=== PATIENT | male | born 1955 | race Caucasian/White ===

== ENCOUNTER 2021-04-02 12:33 | Outpatient (REF) | payer OTHER, MEDICARE, SELFPAY ==
[2021-04-02 14:31] LABS: Amylase 47 U/L (28-100); Lipase 20 U/L (8-78)
== END 2021-04-02 12:34 | disposition home or self-care (01) ==
LOC: HO.WFDLDS 12:33
PROVIDERS: Visit Provider Hospitalist
DX: R10.13 Epigastric pain (principal)
CPT/HCPCS: 36415; 82150; 83690

== ENCOUNTER 2021-04-18 07:09 | Outpatient (REF) | payer OTHER, SELFPAY ==
[2021-04-18 11:32] LABS: Hematocrit 42.1 % (42.0-52.0); Hemoglobin 13.3 g/dl (14.0-18.0); Mean Corpuscular HGB Conc 31.6 g/dl (31.0-36.0); Mean Corpuscular Hemoglobin 25.7 pg (27.0-33.0); Mean Corpuscular Volume 81.3 fL (80.0-98.0); Mean Platelet Volume 11.9 fL (9.4-12.4); Platelet Count 153 X10*3/uL (160-400); Red Blood Count 5.18 X10*6/uL (4.60-5.80); Red Cell Distribution Width 15.1 % (11.0-16.0); White Blood Count 6.4 X10*3/uL (4.8-10.8)
[2021-04-18 11:47] LABS: Alanine Aminotransferase 129 U/L (0-40); Albumin Level 3.8 g/dL (3.5-5.0); Alkaline Phosphatase 204 U/L (39-117); Anion Gap 11 (12-20); Aspartate Amino Transferase 51 U/L (5-37); Bilirubin Total 0.7 mg/dL (0.0-1.0); Blood Urea Nitrogen 17 mg/dL (9-16); Calcium 9.3 mg/dL (8.4-10.2); Carbon Dioxide 26 mmol/L (22-29); Chloride 105 mmol/L (96-108); Cholesterol 205 mg/dL; Estimated Glomerular Filt Rate > 60; Glucose Fasting 104 mg/dL (60-99); HDL Cholesterol 38 mg/dL; LDL Cholesterol Calculated 144 mg/dl; Potassium 4.1 mmol/L (3.3-5.1); Sodium 138 mmol/L (135-145); Total Protein 7.3 g/dL (6.5-8.0); Triglycerides 116 mg/dL
[2021-04-18 12:04] LABS: TSH reflex Free T4 2.11 uIU/mL (0.32-4.0)
[2021-04-18 12:13] LABS: Appearance Urine CLEAR; Color Urine YELLOW; Glucose Urine UA NEG (NEG); Leukocyte Esterase Urine NEG (NEG); Nitrite Urine NEG (NEG); Specific Gravity - Urine 1.015 (1.005-1.025); Urine Blood TRACE (NEG); Urine Ketones NEG (NEG); Urine Protein TRACE MG/DL (NEG-TRACE)
[2021-04-18 12:41] LABS: RBC Urine 0-2 /HPF (0); WBC Urine 0 /HPF (0-4)
== END 2021-04-18 07:10 | disposition home or self-care (01) ==
LOC: HO.WFDLDS 07:09
PROVIDERS: Visit Provider Hospitalist
DX: Z00.01 Encounter for general adult medical examination with abnormal findings (principal); E78.5 Hyperlipidemia, unspecified
CPT/HCPCS: 36415; 80053; 80061; 81001; 81003; 84443; 85027

== ENCOUNTER 2021-06-06 11:36 | Outpatient (REF) | payer OTHER, SELFPAY ==
[2021-06-06 13:44] LABS: Estimated Average Glucose 114 mg/dL; Hemoglobin A1c % 5.6 %
[2021-06-06 14:07] LABS: C Reactive Protein 1.46 mg/dL (< or = 0.50)
[2021-06-06 14:31] LABS: Ferritin 120 ng/mL (20-250)
[2021-06-07 07:56] LABS: HBc Num1 0.12 S/CO (0.00-0.79); HBsAGNum1 0.21 S/CO (0.00-0.99); HIV AB/AG Nonreactive (Nonreactive); HIV Num 1 0.05 S/CO (0.00-0.99); Hepatitis A Antibody IgM 0.22 Index (0-0.79); Hepatitis B Core Antibody Nonreactive (Nonreactive); Hepatitis B Surface Antigen Negative (Negative); ~Hepatitis A Antibody IgM Nonreactive (Nonreactive)
[2021-06-07 08:10] LABS: HBS Num1 0.06 mIU/mL (0-7.99); ~Hepatitis B Surface Antibody NONREACTIVE (Nonreactive); ~Hepatitis C Antibody Nonreactive (Nonreactive)
[2021-06-08 13:51] LABS: Ceruloplasmin 30 mg/dL (18-36)
[2021-06-10 13:02] LABS: Alpha Fetoprotein 5.7 ng/mL (<6.1)
[2021-06-10 16:51] LABS: Mitochondrial Antibodies NEGATIVE (NEGATIVE)
[2021-06-12 06:41] LABS: Alk.Phos Iso. Macrohepatic 27 % (<=0); Alk.Phos Isoenzymes Bone 19 % (28-66); Alk.Phos Isoenzymes Intest 0 % (1-24); Alk.Phos Isoenzymes Liver 54 % (25-69); Alk.Phos Isoenzymes Placental 0 % (<=0); Alk.Phos Isoenzymes Total 288 U/L (35-144)
[2021-06-13 12:56] LABS: Smooth Muscle Antibody <20 U (<20)
== END 2021-06-06 11:37 | disposition home or self-care (01) ==
LOC: HO.LAB 11:36
PROVIDERS: PCP Hospitalist; Referring Provider Hospitalist; Visit Provider Nurse Practitioner Family
DX: K21.9 Gastro-esophageal reflux disease without esophagitis (principal); D64.9 Anemia, unspecified; R74.8 Abnormal levels of other serum enzymes; R79.89 Other specified abnormal findings of blood chemistry; E11.9 Type 2 diabetes mellitus without complications; K58.9 Irritable bowel syndrome, unspecified
CPT/HCPCS: 36415; 82105; 82390; 82728; 83036; 84080; 86015; 86140; 86255; 86256; 86704; 86706; 86709; 86803; 87340; 87389; 99202

== ENCOUNTER 2021-07-17 10:04 | Outpatient (REF) | payer OTHER, SELFPAY ==
--- NOTE | ~2021-07-17 | US_ITS ---
EXAMINATION: US COMPLETE ABDOMEN WITH LIVER ELASTOGRAPHY CLINICAL INFORMATION: Abnormal liver enzymes COMPARISON: None. TECHNIQUE: Real-time imaging of the abdominal viscera. Noninvasive ultrasound liver fibrosis assessment is performed using Zain ElastPQ point quantification shear wave elastography (2D-SWE) with a C5-2 MHz transducer. Multiple elastography samples are obtained. FINDINGS: PANCREAS: The visualized portion of the pancreas head and body are normal, portion of the pancreatic body and tail, not visualized are obscured by bowel gas. ABDOMINAL AORTA: There are atheromatous plaques. INFERIOR VENA CAVA: Visualized portions are normal. LIVER: Normal. The liver demonstrates normal size, contour and echogenicity. No focal lesion or intrahepatic biliary duct dilatation. The right lobe measures 16.7 cm in length. The left lobe measures 10.1 cm in length. Portal flow is hepatopedal Shear wave liver elastography median stiffness is 1.99 m/s (reference: normal median stiffness is 1.3 m/s or less). IQR/median stiffness to assess sampling precision is 0.11 (reference: good quality data set is IQR/median stiffness of 0.15 or less). GALLBLADDER: There is echogenic structure adherent to the gallbladder wall likely a small polyp. 0.4 cm. Normal. The gallbladder is physiologically distended without evidence of stones, sludge, , wall thickening or pericholecystic fluid. COMMON BILE DUCT: Mildly dilated in caliber measuring 0.7 cm in diameter. RIGHT KIDNEY: Normal. No hydronephrosis. No renal calculi or focal parenchymal lesions. The kidney measures 14.4 cm in maximum dimension. LEFT KIDNEY: Normal. No hydronephrosis. No renal calculi or focal parenchymal lesions. The kidney measures 10.4 cm in maximum dimension. SPLEEN: Normal. The spleen measures 10.9 cm in maximum dimension. FREE FLUID: None. US/US abdomen comp w elastography IMPRESSION: 1. Liver is normal in size. 2. Liver elastography: Measurements are suggestive of compensated advanced chronic liver disease but need further test for confirmation. 3. Simple cyst right kidney 0.7 cm middle pole. 4. Echogenic structure likely a polyp within the gallbladder. Would recommend correlation with FOLLOW-UP ULTRASOUND IN 6 MONTHS. REFERENCE: Society of Radiologists in Ultrasound Liver Stiffness Thresholds (2020): LIVER STIFFNESS THRESHOLDS: *Liver Stiffness equal or less than 1.3 m/s: High probability of being normal. *Liver Stiffness less than 1.7 m/s: In the absence of other known clinical signs, rules out compensated advanced chronic liver disease. *Liver Stiffness 1.7-2.1 m/s: Suggestive of compensated advanced chronic liver disease but need further test for confirmation. *Liver Stiffness over 2.1 m/s: Rules in compensated advanced chronic liver disease. *Liver Stiffness over 2.4 m/s: Suggestive of clinically significant portal hypertension. QUALITY OF DATA SET: *IQR/Median value equal or less than 0.15 implies a quality data set. *IQR/Median value over 0.15 implies a poor quality data set. SIGNIFICANT CHANGE FROM PRIOR EXAM: Significant change if liver stiffness measurement is 10% or greater from prior exam. OTHER CONSIDERATIONS: The stage of liver fibrosis may be overestimated in the setting of acute hepatitis, liver inflammation, elevated liver function tests, hepatic vascular congestion, obstructive cholestasis, non-fasting state, and infiltrative diseases such as amyloidosis and lymphoma. In some patients with NAFLD, the liver stiffness thresholds for compensated advanced chronic liver disease may be lower. In causes other than viral hepatitis and NAFLD, liver stiffness thresholds are not well established.
== END 2021-07-17 10:05 | disposition home or self-care (01) ==
LOC: HO.US 10:04
PROVIDERS: Visit Provider Nurse Practitioner Family
DX: R79.89 Other specified abnormal findings of blood chemistry (principal)
CPT/HCPCS: 76705; 76981

== ENCOUNTER → 2021-07-31 09:59 | Outpatient (BNVA) | payer OTHER, SELFPAY | PROVIDERS: PCP Hospitalist; Visit Provider Nurse Practitioner Family | DX: Z12.11 Encounter for screening for malignant neoplasm of colon (principal); R74.8 Abnormal levels of other serum enzymes | CPT/HCPCS: 99212 ==

== ENCOUNTER 2021-12-02 10:31 | Day surgery (SDC) | payer OTHER, SELFPAY ==
[2021-11-27 13:11] VITALS: BMI 32.3
--- NOTE | 2021-11-29 11:52 | P.CONAN_ITS ---
Documented by User: Irish Francois NP 11/29/21 11:54 HPI - Anesthesia Eval Consult details Narrative: 66yo M for Upper Endoscopy and Colonoscopy Cardiac cleared Xarelto for PAF PMFSH Active Problems Active Problems: All Active Problems (Updated 11/28/21 @ 11:27 by Lian Phelan RN) Epigastric pain (Acute) Abnormal physical evaluation (Acute) Afib (Acute) Chronic GERD (Acute) Anemia (Acute) Elevated liver enzymes (Acute) Hyperlipidemia (Acute) HTN (hypertension) (Acute) Past Medical History Medical History (Updated 11/28/21 @ 11:27 by Lian Phelan RN) Anemia COVID-19 vaccine series completed GERD (gastroesophageal reflux disease) History of COVID-19 HTN (hypertension) Hyperlipidemia PAF (paroxysmal atrial fibrillation) Family History Family History Mother HTN (hypertension) Father Stroke Surgical History Surgical History Hx of appendectomy Social History Social History Household Members: Spouse Housing: House Alcohol intake: never Patient Tobacco Use Status: Former Tobacco user e-Cigarette/Vaping Use: Never Used Second Hand Smoke Exposure: No Use of substances other than those prescribed or required for medical reasons: No Advance Directives: No Advance Directives Information Provided: Yes service: No Current occupational status: employed Cognitive needs: No Hearing needs: No Vision needs: No Meds Allergies Allergy/AdvReac Type Severity Reaction Status Date / Time No Known Allergies Allergy Verified 07/31/21 10:03 Home Medications Medication Instructions Recorded Confirmed Last Taken Type losartan 100 mg tablet 100 mg PO DAILY 06/06/21 11/27/21 Unknown History ketoconazole 2 % topical cream 1 appl topical DAILY 07/11/21 11/27/21 Unknown History Exam Exam Date and Time: November 29, 2021 1152 Height,Weight and Vital Signs: Height 5 ft 10 in Weight 102.058 kg Pertinent Lab Results Pertinent Lab Results: Laboratory Tests 04/18/21 04/18/21 07:15 07:15 WBC 6.4 Hgb 13.3 L Hct 42.1 Plt Count 153 L Sodium 138 Potassium 4.1 Chloride 105 Carbon Dioxide 26 BUN 17 H Creatinine 0.95 Assessment and Plan Assessment Anesthesia Assessment: Chart Reviewed Documented by User: Katie Maier MD 12/02/21 12:21 [facility] Past Medical History Medical History (Updated 11/28/21 @ 11:27 by Lian Phelan RN) Anemia COVID-19 vaccine series completed GERD (gastroesophageal reflux disease) History of COVID-19 HTN (hypertension) Hyperlipidemia PAF (paroxysmal atrial fibrillation) Family History Family History Mother HTN (hypertension) Father Stroke Family history of problems with anesthesia: No Surgical History Surgical History Hx of appendectomy History of Problems with Anesthesia: No Social History Social History Household Members: Spouse Housing: House Alcohol intake: never Patient Tobacco Use Status: Former Tobacco user e-Cigarette/Vaping Use: Never Used Second Hand Smoke Exposure: No Use of substances other than those prescribed or required for medical reasons: No Advance Directives: No Advance Directives Information Provided: Yes service: No Current occupational status: employed Cognitive needs: No Hearing needs: No Vision needs: No Meds Allergies Allergy/AdvReac Type Severity Reaction Status Date / Time No Known Allergies Allergy Verified 07/31/21 10:03 Home Medications Medication Instructions Recorded Confirmed Last Taken Type losartan 100 mg tablet 100 mg PO DAILY 06/06/21 11/27/21 Unknown History ketoconazole 2 % topical cream 1 appl topical DAILY 07/11/21 11/27/21 Unknown History Exam Airway Mallampati Class: II (Missing a couple of teeth, denies anything loose) TM Dist: >3cm Neck ROM: Full Heart: irreg Lungs: cta Assessment and Plan Assessment Anesthesia Assessment: Anesthesia Plan Discussed Final Anesthetic Review Family History of Problems with Anesthesia: No History of Problems with Anesthesia: No NPO: Yes ASA Class: III Final Preanesthetic Review: No Changes in Pt Med Stat, Meds/Allgs Chart Reviewed and Consent Obtained/Reviewed Patient Risk: Intermediate Procedure Risk: Intermediate Anesthetic Plan Anesthetic Plan: MAC: Disposition: Standard PACU
[2021-12-02 11:32] VITALS: BP 145/76; PULSE 95; RESP 16; TEMP 36.1; O2SAT 96; BMI 33.0
[2021-12-02] MEDS: Lactated Ringers 1,000 ML 100 ML IVCONT (11:47)
--- NOTE | 2021-12-02 13:07 | MHC.SHP ---
Pre-Procedural Eval Section A Date of Service: 12/02/21 The patient is an INPATIENT: No Section B Chief Complaint: screening, anemia Relevant Family History (Specify if Yes): No Relevant Social History: Tobacco Use (Former smoker) Present Medications: see Short Stay Collaborative assessment Medical History: Significant History (HTN (hypertension) Hyperlipidemia, atrial fibrillation on anticoagulation) History of Previous Operations: Relevant previous surgery/procedure and date(s) (Status post appendectomy) Allergies: Allergies Allergy/AdvReac Type Severity Reaction Status Date / Time No Known Allergies Allergy Verified 07/31/21 10:03 Review of Systems Sugical H&P ROS: Negative: Constitution, Cardiovascular, Respiratory and Gastrointestinal Exam Surgical H&P Exam: Normal: Lungs, Normal: Extremities and Normal: Abdomen and Significant Findings: Heart (Irregularly irregular) Plan Diagnosis/Plan: Unchanged I have reviewed the history and physical and performed a pertinent physical examination on my patient. No changes have occurred unless specified.
--- NOTE | 2021-12-02 13:22 | PM.OP ---
Brief Operative Note Date of Service: 12/02/21 Pre-op diagnosis: Colon cancer screening, anemia Post-op diagnosis: other (GERD, gastriis, colon polyps, diverticulosis, hemorrhoids) Procedure: FLEXIBLE TRANSORAL UPPER GASTROINTESTINAL ENDOSCOPY WITH BIOPSIES AND COLONOSCOPY TILL CECUM WITH BIOPSIES UPPER ENDOSCOPY Consent: Indications for the procedure and potential complications of bleeding, perforation, reaction to medications and missed diagnosis were discussed with the patient and informed consent was obtained. Instrument: Olympus GIF H 190 mid size upper endoscope Monitoring: Vital signs and clinical assessment, continuous EKG monitoring, Pulse oximetry, Carbon Dioxide monitoring and blood pressure monitoring were done throughout the procedure. Procedure: The patient was placed in the left lateral decubitis position and pre-procedure medications were administered and a bite block was placed. The endoscope was inserted into the mouth and advanced under direct vision to the third part of duodenum. A careful inspection was made as the upper endoscope was withdrawn including a retroflexed examination of the proximal stomach; Findings and interventions are described below. Findings: Larynx: Normal Esophagus: GE junction at 40 cms. Irregular Z line - biopsied to check for Leon's. Stomach: Mild gastric erythema. Biopsies were obtained. Grade 2 flap valve on retroflexed examination of the cardia. Duodenum: Normal bulb and descending duodenum. Biopsies were obtained from 3rd part of the duodenum to check for celiac sprue. Intervention: Biopsies as noted above COLONOSCOPY PROCEDURE NOTE Consent: Indications for the procedure and potential complications of bleeding, perforation, reaction to medications and missed diagnosis were discussed with the patient and informed consent was obtained. Instrument: Olympus PCF H 190 L variable stiffness pediatric colonoscope Monitoring: Vital signs and clinical assessment, intermittent blood pressure monitoring, continuous EKG monitoring, Pulse oximetry and Carbon Dioxide monitoring were done throughout the procedure. Colon withdrawl time was 24 minutes. Procedure: The patient was placed in the left lateral decubitis position and pre-procedure medications were administered. After a digital rectal examination of the ano-rectum, the video colonoscope was inserted into the rectum and advanced through the colon to the cecum. The colonoscope was slowly withdrawn in a retrograde panoramic fashion and the colon mucosa was carefully examined including a retroflexed view of the rectum. Findings and interventions are described below. Procedure Difficulty: Colon was long and tortuous and there was spasm and some loop formation - no maneuvers were required Findings: Terminal Ileum: Not evaluated Cecum: Normal Ascending Colon: A 4-5 mm sessile polyp in the proximal ascending colon removed with a cold biopsy. Scattered diverticulosis throughout the colon Transverse Colon: Scattered diverticulosis throughout the colon Descending Colon: Scattered diverticulosis throughout the colon Sigmoid Colon: A 7 to 8 mm sessile polyp removed with a cold bx. Moderate diverticulosis Rectum: Normal Ano-rectum: Moderate internal hemorrhoids Colon preparation: Good after some irrigation Impression and Post Procedure Diagnosis: Endoscopy Findings: ESOPHAGUS: GE junction at 40 cms. Irregular Z line - biopsied to check for Leon's. STOMACH: Gastritis - biopsied to check for H Pylori DUODENUM: Normal - biopsied to check for celiac sprue Colonoscopy Findings: Two small polyps removed Moderate diverticulosis seen in the entire colon Moderate hemorrhoids on retroflexed exam. No source found for anemia - advised further evaluation with iron studies and stool for occult blood. Capsule Endoscopy if stool occult blood is positive Plan: Await pathology results Patient has an appointment on 12/17/21 in the GI Clinic with Soraya Khan FNP-BC. Repeat Colonoscopy interval based on path results - in 5 years if polyps are adenomatous and 10 years if polyps are hyperplastic. (Needs adult colonoscope for future colonoscopies) Above findings were reviewed with the patient and colon polyps and diverticulosis handouts were given in the discharge area Surgeon: Stacey Horowitz MD Anesthesia: MAC Was an Christian Education Director used for this Procedure?: No Christian Education Director: Marlene Reilly Estimated blood loss (mL): 0 Pathology: other (A. small bowel bxs, R/O celiac B. gastric antrum bxs, R/O H. pylori C. G-E junction bxs, R/O Leon's D. ascending colon polyp E. sigmoid polyp) Condition: stable Disposition: PACU
--- NOTE | 2021-12-02 13:23 | P.OP_ITS ---
Operative Note Operative Note Date of Service: 12/02/21 Narrative: Pre-op diagnosis: Colon cancer screening, anemia Post-op diagnosis:?other (GERD, gastriis, colon polyps, diverticulosis, hemorrhoids) Procedure: FLEXIBLE TRANSORAL UPPER GASTROINTESTINAL ENDOSCOPY WITH BIOPSIES AND COLONOSCOPY TILL CECUM WITH BIOPSIES UPPER ENDOSCOPY Consent:?Indications for the procedure and potential complications of bleeding, perforation, reaction to medications and missed diagnosis were discussed with the patient and informed consent was obtained. Instrument:?Olympus GIF H 190 mid size upper endoscope Monitoring: Vital signs and clinical assessment, continuous EKG monitoring, Pulse oximetry, Carbon Dioxide monitoring and blood pressure monitoring were done throughout the procedure. Procedure:?The patient was placed in the left lateral decubitis position and pre-procedure medications were administered and a bite block was placed. The endoscope was inserted into the mouth and advanced under direct vision to the third part of duodenum. A careful inspection was made as the upper endoscope was withdrawn including a retroflexed examination of the proximal stomach; Findings and interventions are described below. Findings: Larynx:? Normal Esophagus:?GE junction at 40 cms.? Irregular Z line - biopsied to check for Leon's. Stomach:?Mild gastric erythema. Biopsies were obtained. Grade 2 flap valve on retroflexed examination of the cardia. Duodenum:?Normal bulb and descending duodenum.? Biopsies were obtained from 3rd part of the duodenum to check for celiac sprue. Intervention:?Biopsies as noted above COLONOSCOPY PROCEDURE NOTE Consent:?Indications for the procedure and potential complications of bleeding, perforation, reaction to medications and missed diagnosis were discussed with the patient and informed consent was obtained. Instrument:?Olympus PCF H 190 L variable stiffness pediatric colonoscope Monitoring:?Vital signs and clinical assessment, intermittent blood pressure monitoring, continuous EKG monitoring, Pulse oximetry and Carbon Dioxide monitoring were done throughout the procedure. Colon withdrawl time was 24 minutes. Procedure:?The patient was placed in the left lateral decubitis position and pre-procedure medications were administered. After a digital rectal examination of the ano-rectum, the video colonoscope was inserted into the rectum and advanced through the colon to the cecum. The colonoscope was slowly withdrawn in a retrograde panoramic fashion and the colon mucosa was carefully examined including a retroflexed view of the rectum. Findings and interventions are described below. Procedure Difficulty:??Colon was long and tortuous and there was spasm and some loop formation - no maneuvers were required Findings: Terminal Ileum: Not evaluated Cecum:? Normal Ascending Colon:??A 4-5 mm sessile polyp in the proximal ascending colon removed with a cold biopsy.? Scattered diverticulosis throughout the colon Transverse Colon:??Scattered diverticulosis throughout the colon Descending Colon:? Scattered diverticulosis throughout the colon Sigmoid Colon:??A 7 to 8 mm sessile polyp removed with a cold bx. Moderate diverticulosis Rectum:??Normal Ano-rectum:??Moderate internal hemorrhoids Colon preparation:? Good after some irrigation Impression and Post Procedure Diagnosis: Endoscopy Findings: ESOPHAGUS: GE junction at 40 cms.? Irregular Z line - biopsied to check for Leon's. STOMACH: Gastritis - biopsied to check for H Pylori DUODENUM: Normal - biopsied to check for celiac sprue Colonoscopy Findings: Two small polyps removed Moderate diverticulosis seen in the entire colon Moderate hemorrhoids on retroflexed exam. No source found for anemia - advised further evaluation with iron studies and stool for occult blood. Capsule Endoscopy if stool occult blood is positive Plan: Await pathology results Patient has an appointment on 12/17/21 in the GI Clinic with ? Soraya Khan FNP-TON. Repeat Colonoscopy interval based on path results - in 5 years if polyps are adenomatous and 10 years if polyps are hyperplastic. (Needs adult colonoscope for future colonoscopies) Above findings were reviewed with the patient and colon polyps and diverticulosis handouts were given in the discharge area Surgeon: Stacey Horowitz MD Anesthesia:?MAC Was an Finished Cigar Maker used for this Procedure?:?No Finished Cigar Maker:?Marlene Reilly Estimated blood loss (mL):?0 Pathology:?other (A. small bowel bxs, R/O celiac? B. gastric antrum bxs, R/O H. pylori? C. G-E junction bxs, R/O Leon's? D. ascending colon polyp? E. sigmoid polyp) Condition:?stable Disposition:?PACU
[2021-12-02 14:17] VITALS: BP 105/53; PULSE 102; RESP 18; TEMP 36.6; O2SAT 96
[2021-12-02 14:32] VITALS: BP 100/68; PULSE 87; RESP 18; O2SAT 96
[2021-12-02 14:47] VITALS: BP 100/68; PULSE 89; RESP 18; O2SAT 98
== END 2021-12-02 15:30 | disposition home or self-care (01) ==
PROVIDERS: PCP Hospitalist; Visit Provider Internal Medicine Gastroenterology
PROC: (CPT 45380; principal; 2021-12-02 12:10)
DX: Z12.11 Encounter for screening for malignant neoplasm of colon (principal); D64.9 Anemia, unspecified; K63.5 Polyp of colon; K57.30 Diverticulosis of large intestine without perforation or abscess without bleeding; K64.8 Other hemorrhoids; R74.8 Abnormal levels of other serum enzymes; K58.9 Irritable bowel syndrome, unspecified; K21.9 Gastro-esophageal reflux disease without esophagitis; K29.50 Unspecified chronic gastritis without bleeding; I10 Essential (primary) hypertension; E78.5 Hyperlipidemia, unspecified; I48.0 Paroxysmal atrial fibrillation; Z79.01 Long term (current) use of anticoagulants; Z79.899 Other long term (current) drug therapy; Z87.891 Personal history of nicotine dependence; Z86.16 Personal history of COVID-19
CPT/HCPCS: 45380; 43239; 88305; 88342

== ENCOUNTER 2021-12-17 09:41 | Outpatient (REF) | payer OTHER, SELFPAY ==
[2021-12-17 10:34] LABS: Hematocrit 41.7 % (42.0-52.0); Hemoglobin 13.4 g/dl (14.0-18.0); Mean Corpuscular HGB Conc 32.1 g/dl (31.0-36.0); Mean Corpuscular Hemoglobin 26.3 pg (27.0-33.0); Mean Corpuscular Volume 81.8 fL (80.0-98.0); Mean Platelet Volume 9.5 fL (9.4-12.4); Platelet Count 363 X10*3/uL (160-400); Red Cell Distribution Width 14.1 % (11.0-16.0)
[2021-12-17 11:18] LABS: Alanine Aminotransferase 237 U/L (0-40); Alkaline Phosphatase 523 U/L (39-117); Aspartate Amino Transferase 120 U/L (5-37); Bilirubin Direct 0.4 mg/dL (0.0-0.5); Bilirubin Total 0.7 mg/dL (0.0-1.0); Blood Urea Nitrogen 17 mg/dL (9-16); Estimated Glomerular Filt Rate > 60; Iron 40 mcg/dL (45-160); Lipase 22 U/L (8-78); Percent Iron Saturation 12 % (15-50); Total Iron Binding Capacity 342 mcg/dL (228-428); Total Protein 7.3 g/dL (6.5-8.0); Unsaturated Iron Binding 302 ug/dL
== END 2021-12-17 09:42 | disposition home or self-care (01) ==
LOC: HO.LAB 09:41
PROVIDERS: PCP Hospitalist; Visit Provider Nurse Practitioner Family
DX: R10.11 Right upper quadrant pain (principal); K92.2 Gastrointestinal hemorrhage, unspecified; K21.9 Gastro-esophageal reflux disease without esophagitis
CPT/HCPCS: 36415; 80076; 82565; 83540; 83690; 84520; 85027; 99212

== ENCOUNTER 2021-12-30 10:50 | Outpatient (REF) | payer OTHER, SELFPAY ==
[2021-12-30 12:53] LABS: Monotest Negative (Negative)
[2021-12-31 19:07] LABS: EBV-NA IgG Index >600.00 U/mL; EBV-VCA IgM Ab <36.00 U/mL
[2022-01-07 22:37] LABS: Pancreatic Elastase-1 >500 mcg/g
== END 2021-12-30 10:51 | disposition home or self-care (01) ==
LOC: HO.LAB 10:50
PROVIDERS: PCP Hospitalist; Visit Provider Nurse Practitioner Family
DX: R10.9 Unspecified abdominal pain (principal); R74.8 Abnormal levels of other serum enzymes
CPT/HCPCS: 36415; 82656; 86308; 86664; 86665

== ENCOUNTER 2021-12-31 14:13 | Inpatient (IN) | payer OTHER, SELFPAY ==
--- NOTE | ~2021-12-31 | FL_ITS ---
EXAMINATION: XR FLUOROSCOPY WITH IMAGES CLINICAL INFORMATION: Obstruction. ERCP COMPARISON: MRCP 01/01/2022 TECHNIQUE: Fluoroscopy performed by Dr. Marito Ruby. Fluoroscopy time: 4.4 minutes. Cumulative Dose: 113 mGy. DAP: 30.8 Gycm2. Images: 6. FINDINGS: An ERCP was performed. Images demonstrate cannulation and contrast injection into the common bile duct. A balloon sweep was performed. On final images, no residual filling defects are seen. FL/FL guidance in OR IMPRESSION: ERCP as described above. Recommend correlation with procedure note.
--- NOTE | ~2021-12-31 | MR_ITS ---
EXAMINATION: MR ABDOMEN WITHOUT CONTRAST CLINICAL INFORMATION: Abdominal pain. COMPARISON: CT abdomen pelvis same date TECHNIQUE: MR abdomen is performed without gadolinium contrast. MRCP sequences are obtained FINDINGS: LUNG BASES: The visualized lung bases are unremarkable. LIVER, GALLBLADDER, AND BILIARY TREE: No focal hepatic masses. The common duct is distended as seen on the recent CT. The common duct measures 13 mm in diameter. There is a 9 x 6 mm oval low signal focus in the distal common duct likely reflective of a stone, please see series 6 image 10. There is slight prominence to the left intrahepatic biliary radicals. Small gallstones are present within the gallbladder. PANCREAS: Unremarkable. SPLEEN: Spleen is prominent ADRENAL GLANDS: Unremarkable. KIDNEYS AND URETERS: Atrophic scarred left kidney. 5 mm cyst exophytic mid right kidney. 13 mm bilobed cyst medial upper right kidney. No right or left hydronephrosis or suspicious lesions. Note that the kidneys are not fully covered. GASTROINTESTINAL TRACT: Visualized enteric structures grossly normal. No ascites. ABDOMINAL WALL: No significant hernia is appreciated. LYMPH NODES: No lymphadenopathy. VASCULAR: Unremarkable. OSSEOUS STRUCTURES: No destructive lesions observed. MR/MR MRCP IMPRESSION: Tiny gallstones in the gallbladder. Distended common duct . There appears to be a stone in the distal common duct at 9 x 6 mm.
--- NOTE | ~2021-12-31 | CT_ITS ---
EXAMINATION: CT ABDOMEN AND PELVIS WITH CONTRAST CLINICAL INFORMATION: Upper abdominal pain. Elevated LFTs. COMPARISON: Ultrasound 07/17/2021 TECHNIQUE: Multidetector volumetric images were obtained from the superior aspect of the liver through the pubic symphysis following administration 85 mL of Omnipaque 350 intravenous contrast. Sagittal and coronal reformatted images were obtained on the technologist's workstation. Oral contrast: No This CT examination was performed using dose optimization techniques as appropriate, variously including the following: *Automated exposure control *Adjustment of mA and/or kV according to patient size (this includes techniques or standardized protocols for targeted exams where dose is matched to indication/reason for exam; i.e. extremities or head) *Use of iterative reconstruction technique DLP: 831 mGy-cm FINDINGS: LUNG BASES: The visualized lung bases are unremarkable. LIVER, GALLBLADDER, AND BILIARY TREE: The liver is normal in size, shape, and attenuation. No focal hepatic lesion.. The gallbladder is unremarkable with no evidence of radiopaque gallstones, gallbladder wall thickening, or obvious pericholecystic inflammatory changes. The common bile duct is dilated measuring 1.3 cm. Mild intrahepatic biliary ductal dilatation is well . No definite ductal filling defect seen. PANCREAS: Unremarkable. SPLEEN: Unremarkable. ADRENAL GLANDS: Unremarkable. KIDNEYS AND URETERS: Atrophic left kidney with significant cortical thinning. Normal right kidney. 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 No hydronephrosis or nephrolithiasis. BLADDER: Unremarkable. GASTROINTESTINAL TRACT: The stomach is unremarkable. Normal caliber small bowel. No obstruction. Minimal colonic diverticulosis without diverticulitis. No free air or free fluid. ABDOMINAL WALL: No significant hernia is appreciated. LYMPH NODES: Normal. VASCULAR: Normal caliber of the aorta with moderate atherosclerotic calcification. PELVIC VISCERA: The prostate and seminal vesicles are unremarkable. OSSEOUS STRUCTURES: No acute or suspicious osseous abnormality. Degenerative change throughout the spine. Degenerative changes of both hips. CT/CT abdomen pelvis w IV con IMPRESSION: 1. Intrahepatic and extrahepatic biliary ductal dilatation. No definite ductal filling defect seen. Consider further evaluation with ERCP or MRCP. 2. Atrophic left kidney with significant cortical thinning. 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 3. No acute inflammatory changes of the abdomen or pelvis. Fleischner guidelines were followed.
[2021-12-31 16:05] VITALS: BP 142/80; PULSE 99; RESP 18; TEMP 36.4; BMI 32.3
[2021-12-31 21:01] LABS: MANUAL DIFF FLAG NO
[2021-12-31 21:15] LABS: Basophils Absolute Auto 0.1 X10*3/uL (0.0-0.2); Basophils Percent Auto 0.6 % (0-2); Eosinophils Absolute Auto 0.1 X10*3/uL (0.0-0.4); Eosinophils Percent Auto 0.7 % (0-4); Hematocrit 42.8 % (42.0-52.0); Hemoglobin 13.8 g/dl (14.0-18.0); Imm Gran Abs Auto 0.02 X10*3/uL (0.00-0.03); Imm Gran Pct Auto 0.2 % (0.0-0.4); Lymphocytes Absolute Auto 1.5 X10*3/uL (1.2-4.9); Mean Corpuscular HGB Conc 32.2 g/dl (31.0-36.0); Mean Corpuscular Hemoglobin 26.4 pg (27.0-33.0); Mean Corpuscular Volume 81.8 fL (80.0-98.0); Mean Platelet Volume 9.6 fL (9.4-12.4); Monocytes Absolute Auto 0.6 X10*3/uL (0.1-1.2); Monocytes Percent Auto 6.4 % (2-11); Neutrophils Absolute Auto 6.6 x10*3/uL (2.0-8.3); Neutrophils Percent Auto 75.1 % (45-73); Platelet Count 363 X10*3/uL (160-400); Red Blood Count 5.23 X10*6/uL (4.60-5.80); Red Cell Distribution Width 14.1 % (11.0-16.0); White Blood Count 8.7 X10*3/uL (4.8-10.8)
[2021-12-31 21:21] LABS: Alanine Aminotransferase 164 U/L (0-40); Albumin Level 3.9 g/dL (3.5-5.0); Alkaline Phosphatase 706 U/L (39-117); Anion Gap 16 (12-20); Aspartate Amino Transferase 107 U/L (5-37); Bilirubin Total 1.5 mg/dL (0.0-1.0); Blood Urea Nitrogen 16 mg/dL (9-16); Calcium 9.5 mg/dL (8.4-10.2); Carbon Dioxide 24 mmol/L (22-29); Chloride 105 mmol/L (96-108); Creatinine Clr Calc Pharmacy 69.5; Estimated Glomerular Filt Rate 58; Glucose Random 109 mg/dL (60-115); Lipase 13 U/L (8-78); Magnesium 2.3 mg/dL (1.6-2.6); Potassium 4.5 mmol/L (3.3-5.1); Sodium 140 mmol/L (135-145); Total Protein 7.7 g/dL (6.5-8.0)
[2022-01-01] VITALS (7 sets, daily range): BP systolic 121–160; BP diastolic 69–90; PULSE 83–117; RESP 12–22; TEMP 20.1–37.1; O2SAT 94–98
--- NOTE | 2022-01-01 01:33 | ED_ITS ---
HPI - Abdominal Pain General Chief Complaint: Abdominal Pain Stated Complaint: abd pain Time Seen by Provider: 01/01/22 01:32 Source: patient Mode of arrival: ambulatory Limitations: no limitations History of Present Illness HPI narrative: Patient with chronic abdominal pain going on for last 3- 4 months seen gastr oenterologist had a colonoscopy and endoscopy on 12/02 has elevated liver function test etiology is not clear , comes in his pain got worse since yesterday more in upper abdomen radiating to both sides no nausea no vomiting or diarrhea no fever no chills, patient called his GI wanted him to go to the hospital for admission for evaluation Related Data Home Medications Medication Instructions Recorded Confirmed losartan 100 mg tablet 100 mg PO DAILY 06/06/21 11/27/21 ketoconazole 2 % topical cream 1 appl topical DAILY 07/11/21 11/27/21 Previous Rx's Medication Instructions Recorded amlodipine 10 mg tablet 10 mg PO DAILY #90 tabs 04/17/21 aspirin 81 mg tablet,delayed 81 mg PO DAILY #90 tabs 04/17/21 release atorvastatin 20 mg tablet 20 mg PO DAILY #90 tabs 04/17/21 nitroglycerin 0.3 mg sublingual 0.3 mg sublingual Q5M 1 month #20 04/17/21 tablet tabs rivaroxaban 20 mg tablet (Xarelto) 20 mg PO QPM #90 tabs 04/17/21 blood pressure monitor (Blood #1 ea 05/16/21 Pressure Kit) metoprolol tartrate 50 mg tablet 50 mg PO BID #180 tabs 10/09/21 famotidine 20 mg tablet (Pepcid) 20 mg PO BEDTIME #30 tabs 12/17/21 omeprazole 20 mg capsule,delayed 20 mg PO DAILY #90 caps 12/17/21 release polyethylene glycol 3350 17 17 g PO DAILY #510 grams 12/17/21 gram/dose oral powder (Miralax) ferrous sulfate 325 mg (65 mg 325 mg PO DAILY #30 tabs 12/27/21 iron) tablet Allergies Allergy/AdvReac Type Severity Reaction Status Date / Time No Known Allergies Allergy Verified 12/17/21 08:46 Review of Systems Review of Systems Yes all other systems are reviewed and are negative PMFSH Past Medical History Medical History Anemia COVID-19 vaccine series completed GERD (gastroesophageal reflux disease) History of COVID-19 HTN (hypertension) Hyperlipidemia PAF (paroxysmal atrial fibrillation) Surgical History Hx of appendectomy Hx of colonoscopy Family History Family History Mother HTN (hypertension) Father Stroke Social History Social History Household Members: Spouse Housing: House Alcohol intake: never Patient Tobacco Use Status: Former Tobacco user e-Cigarette/Vaping Use: Never Used Second Hand Smoke Exposure: No Use of substances other than those prescribed or required for medical reasons: No Advance Directives: No Advance Directives Information Provided: No service: No Current occupational status: employed Cognitive needs: No Hearing needs: No Vision needs: No Physical Exam ED Vital Signs: Vital Signs - 24 hr 12/31/21 16:05 01/01/22 00:56 Temperature 97.6 F 98.7 F Pulse Rate 99 117 H Respiratory Rate 18 22 H Blood Pressure 142/80 H 160/82 H Pulse Oximetry 98 Oxygen Delivery Method Room Air Room Air BMI result Body Mass Index 32.3 Appearance: Alert. Oriented X3. No acute distress. Eyes: PERRLA, No Nystagmus ENT: Pharynx normal. Oral Mucosa moist Neck: Normal inspection. Neck supple. CVS: Normal heart rate and rhythm. Pulses normal. Respiratory: No respiratory distress. Equal air entry bilateral, no wheezing/rales/rhonchi Abdomen: Soft , diffuse upper abdomen tenderness no rebound tenderness or guarding, Bowel sounds are present, no mass palpable, no CVA tenderness Skin: Skin warm and dry. Normal skin color. Normal skin turgor. Extremities: No lower extremity edema. No calf tenderness Neuro: Oriented X 3. No motor deficit. No sensory deficit. MDM - Abdominal Pain MDM Narrative Medical decision making narrative: 2 am Patient elevated LFT with elevated alkaline phosphatase will do abdominal CT to rule out acute pathology 04:[address] scan showed dilated hepatic biliary ducts without any de finite obstructive lesion will admit patient for further evaluation including MRCP CT/CT abdomen pelvis w IV con IMPRESSION: 1.? Intrahepatic and extrahepatic biliary ductal dilatation. No definite ductal filling defect seen. Consider further evaluation with ERCP or MRCP. 2.? Atrophic left kidney with significant cortical thinning. 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 3.? No acute inflammatory changes of the abdomen or pelvis. ? Fleischner guidelines were followed. Medical Records Attestation: I reviewed the patient's medical records. Lab Data Attestation: I reviewed the patient's lab results. Result diagrams: 12/31/21 20:55 12/31/21 20:55 Labs: Lab Results 12/31/21 12/31/21 01/01/22 Range/Units 20:55 20:55 02:09 WBC 8.7 (4.8-10.8) X10*3/uL RBC 5.23 (4.60-5.80) X10*6/uL Hgb 13.8 L (14.0-18.0) g/dl Hct 42.8 (42.0-52.0) % MCV 81.8 (80.0-98.0) fL MCH 26.4 L (27.0-33.0) pg MCHC 32.2 (31.0-36.0) g/dl RDW 14.1 (11.0-16.0) % Plt Count 363 (160-400) X10*3/uL MPV 9.6 (9.4-12.4) fL Immature Gran % (Auto) 0.2 (0.0-0.4) % Neut % (Auto) 75.1 H (45-73) % Lymph % (Auto) 17.0 L (20-40) % [place] % (Auto) 6.4 (2-11) % Eos % (Auto) 0.7 (0-4) % Baso % (Auto) 0.6 (0-2) % Lymph # (Auto) 1.5 (1.2-4.9) X10*3/uL [place] # (Auto) 0.6 (0.1-1.2) X10*3/uL Eos # (Auto) 0.1 (0.0-0.4) X10*3/uL Baso # (Auto) 0.1 (0.0-0.2) X10*3/uL Abs Immat Gran (auto) 0.02 (0.00-0.03) X10*3/uL Absolute Neuts (auto) 6.6 (2.0-8.3) x10*3/uL Absolute Nucleated RBC 0.000 (0.0-0.012) X10*3/uL Nucleated RBC % (auto) 0.0 (0.0-0.2) /100WBC PT 12.1 (10.0-13.1) SEC INR 1.1 (0.9-1.1) Sodium 140 (135-145) mmol/L Potassium 4.5 (3.3-5.1) mmol/L Chloride 105 (96-108) mmol/L Carbon Dioxide 24 (22-29) mmol/L Anion Gap 16 (12-20) BUN 16 (9-16) mg/dL Creatinine 1.25 (0.5-1.4) mg/dL Estim Creat Clear Calc 69.5 Estimated GFR 58 Random Glucose 109 (60-115) mg/dL Calcium 9.5 (8.4-10.2) mg/dL Magnesium 2.3 (1.6-2.6) mg/dL Total Bilirubin 1.5 H (0.0-1.0) mg/dL AST 107 H (5-37) U/L ALT 164 H (0-40) U/L Alkaline Phosphatase 706 H D (39-117) U/L Total Protein 7.7 (6.5-8.0) g/dL Albumin 3.9 (3.5-5.0) g/dL Lipase 13 (8-78) U/L Urine Color Urine Appearance Urine pH (5.0-9.0) Ur Specific [place] (1.005-1.025) Urine Protein (Neg-Trace) mg/dL Urine Glucose (UA) (Negative) mg/dL Urine Ketones (Negative) mg/dL Urine Blood (Negative) Urine Nitrite (Negative) Ur Leukocyte Esterase (Negative) Urine RBC (0-2) /HPF Urine WBC (0-5) /HPF Ur Squamous Epith Cells (0-2) /HPF Urine Bacteria (None Seen) Hyaline Casts (0-2) /LPF 01/01/22 Range/Units 02:34 WBC (4.8-10.8) X10*3/uL RBC (4.60-5.80) X10*6/uL Hgb (14.0-18.0) g/dl Hct (42.0-52.0) % MCV (80.0-98.0) fL MCH (27.0-33.0) pg MCHC (31.0-36.0) g/dl RDW (11.0-16.0) % Plt Count (160-400) X10*3/uL MPV (9.4-12.4) fL Immature Gran % (Auto) (0.0-0.4) % Neut % (Auto) (45-73) % Lymph % (Auto) (20-40) % [place] % (Auto) (2-11) % Eos % (Auto) (0-4) % Baso % (Auto) (0-2) % Lymph # (Auto) (1.2-4.9) X10*3/uL [place] # (Auto) (0.1-1.2) X10*3/uL Eos # (Auto) (0.0-0.4) X10*3/uL Baso # (Auto) (0.0-0.2) X10*3/uL Abs Immat Gran (auto) (0.00-0.03) X10*3/uL Absolute Neuts (auto) (2.0-8.3) x10*3/uL Absolute Nucleated RBC (0.0-0.012) X10*3/uL Nucleated RBC % (auto) (0.0-0.2) /100WBC PT (10.0-13.1) SEC INR (0.9-1.1) Sodium (135-145) mmol/L Potassium (3.3-5.1) mmol/L Chloride (96-108) mmol/L Carbon Dioxide (22-29) mmol/L Anion Gap (12-20) BUN (9-16) mg/dL Creatinine (0.5-1.4) mg/dL Estim Creat Clear Calc Estimated GFR Random Glucose (60-115) mg/dL Calcium (8.4-10.2) mg/dL Magnesium (1.6-2.6) mg/dL Total Bilirubin (0.0-1.0) mg/dL AST (5-37) U/L ALT (0-40) U/L Alkaline Phosphatase (39-117) U/L Total Protein (6.5-8.0) g/dL Albumin (3.5-5.0) g/dL Lipase (8-78) U/L Urine Color Dark Yellow Urine Appearance Clear Urine pH 5.5 (5.0-9.0) Ur Specific [place] 1.025 (1.005-1.025) Urine Protein 100 (2+) H (Neg-Trace) mg/dL Urine Glucose (UA) Negative (Negative) mg/dL Urine Ketones 15 (Negative) mg/dL Urine Blood Negative (Negative) Urine Nitrite Negative (Negative) Ur Leukocyte Esterase Trace H (Negative) Urine RBC 0-2 (0-2) /HPF Urine WBC 0-5 (0-5) /HPF Ur Squamous Epith Cells 0-2 (0-2) /HPF Urine Bacteria None Seen (None Seen) Hyaline Casts 3-5 (0-2) /LPF Discharge Plan Discharge Clinical Impression: Elevated liver enzymes, Epigastric pain Patient Disposition: Admitted As Inpatient Interventions: LWBS Worksheet Last Done: 12/31/21 22:00
[2022-01-01 02:20] LABS: INTERNATIONAL NORM RATIO 1.1 (0.9-1.1); Prothrombin Time 12.1 SEC (10.0-13.1)
[2022-01-01 02:40] LABS: Appearance Urine Clear; Color Urine Dark Yellow; Glucose Urine UA Negative (Negative); Leukocyte Esterase Urine Trace (Negative); Nitrite Urine Negative (Negative); PH 5.5 (5.0-9.0); Specific Gravity - Urine 1.025 (1.005-1.025); UMIC TRIGGER UACC YES; Urine Blood Negative (Negative); Urine Ketones 15 mg/dL (Negative); Urine Protein 100 (2+) mg/dL (Neg-Trace)
[2022-01-01] MEDS: ondansetron HCL 4 MG/2 ML VIAL IVPUSH (02:44)
[2022-01-01] MEDS: 0.9 % Sodium Chloride 1,000 ML 999 ML IV (02:44)
[2022-01-01 02:45] LABS: Bacteria Urine None Seen (None Seen); RBC Urine 0-2 /HPF (0-2); Squamous Epithelial Cell Urine 0-2 /HPF (0-2); WBC Urine 0-5 /HPF (0-5)
[2022-01-01] MEDS: iohexoL 350 MG/ML 100 ML INFUS..BTL IV (03:00)
--- NOTE | 2022-01-01 04:45 | PM.IMHP ---
History of Present Illness Date of Service: 01/01/22 Chief Complaint: Abdominal pain This is a 66-year-old male with pertinent history of atrial fibrillation on Xarelto, essential hypertension, gastroesophageal reflux disease who was sent to the emergency department for evaluation of elevated liver enzymes. Patient states he has been having abdominal discomfort for about 3 months. He has been following Gastroenterology as an outpatient and has had upper endoscopy and colonoscopy done which was without any acute findings. Patient continued to have upper abdominal discomfort, worse with certain types of food. No relieving factors. It is associated with nausea and chills. Patient denies fever, shortness of breath, chest discomfort, palpitations. Patient states his urine turned dark every time he has abdominal discomfort. No changes in color of stool or bowel habits. Patient had outpatient blood work done which revealed elevated liver enzymes and he was sent to the ER for further evaluation and management. He denies hematochezia or melena. In the emergency department, patient's alkaline phosphatase was found to be elevated compared to previous values. Imaging was concerning for intrahepatic and extrahepatic biliary ductal dilatation Review of Systems Review of Systems: All 13 review of systems are negative except as noted in HPI [facility] Medical History Anemia COVID-19 vaccine series completed GERD (gastroesophageal reflux disease) History of COVID-19 HTN (hypertension) Hyperlipidemia PAF (paroxysmal atrial fibrillation) Family History Mother HTN (hypertension) Father Stroke Surgical History Hx of appendectomy Hx of colonoscopy Social History Household Members: Spouse Housing: House Alcohol intake: never Patient Tobacco Use Status: Former Tobacco user e-Cigarette/Vaping Use: Never Used Second Hand Smoke Exposure: No Use of substances other than those prescribed or required for medical reasons: No Advance Directives: No Advance Directives Information Provided: No service: No Current occupational status: employed Cognitive needs: No Hearing needs: No Vision needs: No Meds Allergies Allergy/AdvReac Type Severity Reaction Status Date / Time No Known Allergies Allergy Verified 12/17/21 08:46 Active Medications: Current Medications Acetaminophen (Acetaminophen 325 Mg Tablet) 650 mg PO Q6H PRN PRN Reason: Pain, Mild (Pain Scale 1-3) Famotidine (Famotidine 20 Mg Tablet) 20 mg PO BEDTIME ABA Melatonin (Melatonin 3 Mg Tablet) 6 mg PO BEDTIME PRN PRN Reason: Insomnia Morphine Sulfate (Morphine Sulfate 4 Mg/Ml Cartridge) 4 mg IVPUSH Q4H PRN; Protocol PRN Reason: Pain, Severe (Pain Scale 7-10) Omeprazole (Omeprazole 20 Mg Capsule.Dr) 20 mg PO DAILY [facility] Ondansetron HCl (Ondansetron Hcl 4 Mg/2 Ml Vial) 4 mg IVPUSH Q8H PRN PRN Reason: Nausea and Vomiting Pharmacy Consult (Consult Rx Perform Med Rec) 1 each MISCELLANE ONCE PRN PRN Reason: Consult order Sodium Chloride (0.9 % Sodium Chloride Flush 3 Ml Syringe) 3 ml IVFLUSH QSHIFT [facility] Home Medications Medication Instructions Recorded Confirmed Last Taken Type losartan 100 mg tablet 100 mg PO DAILY 06/06/21 11/27/21 Unknown History ketoconazole 2 % topical cream 1 appl topical DAILY 07/11/21 11/27/21 Unknown History Physical Exam Vital Signs and Narrative: Vital Signs: Last Vital Signs Temp 98.7 F 01/01/22 00:56 Pulse 117 H 01/01/22 00:56 Resp 22 H 01/01/22 00:56 BP 160/82 H 01/01/22 00:56 Pulse Ox 98 01/01/22 00:56 O2 Del Method 01/01/22 00:56 BMI result Body Mass Index 32.3 Middle-aged male lying in bed in no distress Neck supple, no JVD Irregularly irregular, S1-S2 heard Regular breath sounds bilaterally, no wheezing or crackles appreciated Abdomen soft nontender, no guarding, no rigidity Patient is awake, alert and oriented to self, place, time and person ; no focal motor deficit Psych: Normal mood No pedal edema Results Labs CBC and Chem 7: 12/31/21 20:55 12/31/21 20:55 Labs: Laboratory Results - last 24 hr 12/31/21 12/31/21 01/01/22 20:55 20:55 02:09 MCV 81.8 MCH 26.4 L MCHC 32.2 RDW 14.1 Plt Count 363 MPV 9.6 Immature Gran % (Auto) 0.2 Neut % (Auto) 75.1 H Lymph % (Auto) 17.0 L [place] % (Auto) 6.4 Eos % (Auto) 0.7 Baso % (Auto) 0.6 Lymph # (Auto) 1.5 [place] # (Auto) 0.6 Eos # (Auto) 0.1 Baso # (Auto) 0.1 Abs Immat Gran (auto) 0.02 Absolute Neuts (auto) 6.6 Absolute Nucleated RBC 0.000 Nucleated RBC % (auto) 0.0 PT 12.1 INR 1.1 Anion Gap 16 Estim Creat Clear Calc 69.5 Estimated GFR 58 Random Glucose 109 Calcium 9.5 Magnesium 2.3 Total Bilirubin 1.5 H AST 107 H ALT 164 H Alkaline Phosphatase 706 H D Total Protein 7.7 Albumin 3.9 Lipase 13 Urine Color Urine Appearance Urine pH Ur Specific [place] Urine Protein Urine Glucose (UA) Urine Ketones Urine Blood Urine Nitrite Ur Leukocyte Esterase Urine RBC Urine WBC Ur Squamous Epith Cells Urine Bacteria Hyaline Casts 01/01/22 02:34 MCV MCH MCHC RDW Plt Count MPV Immature Gran % (Auto) Neut % (Auto) Lymph % (Auto) [place] % (Auto) Eos % (Auto) Baso % (Auto) Lymph # (Auto) [place] # (Auto) Eos # (Auto) Baso # (Auto) Abs Immat Gran (auto) Absolute Neuts (auto) Absolute Nucleated RBC Nucleated RBC % (auto) PT INR Anion Gap Estim Creat Clear Calc Estimated GFR Random Glucose Calcium Magnesium Total Bilirubin AST ALT Alkaline Phosphatase Total Protein Albumin Lipase Urine Color Dark Yellow Urine Appearance Clear Urine pH 5.5 Ur Specific [place] 1.025 Urine Protein 100 (2+) H Urine Glucose (UA) Negative Urine Ketones 15 Urine Blood Negative Urine Nitrite Negative Ur Leukocyte Esterase Trace H Urine RBC 0-2 Urine WBC 0-5 Ur Squamous Epith Cells 0-2 Urine Bacteria None Seen Hyaline Casts 3-5 Imaging Radiologist's Impressions: Impressions Abdomen/Pelvis CT 01/01/22 03:08 IMPRESSION: 1. Intrahepatic and extrahepatic biliary ductal dilatation. No definite ductal filling defect seen. Consider further evaluation with ERCP or MRCP. 2. Atrophic left kidney with significant cortical thinning. 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 3. No acute inflammatory changes of the abdomen or pelvis. Fleischner guidelines were followed. Assessment and Plan (1) Epigastric pain: Status: Acute (2) Chronic GERD: Status: Acute (3) Elevated liver enzymes: Status: Acute (4) HTN (hypertension): Status: Acute (5) Hyperlipidemia: Status: Acute (6) Afib: Status: Acute Plan This is a 66-year-old male with pertinent history of atrial fibrillation on Xarelto, essential hypertension, gastroesophageal reflux disease who was sent to the emergency department for evaluation of elevated liver enzymes. #. Abdominal pain #. Elevated liver enzymes -chronic intermittent postprandial upper abdominal discomfort. Has been evaluated as an outpatient with upper endoscopy and colonoscopy which were without acute findings. Liver elastography suggestive of compensated chronic liver disease. Previous labs reviewed:Negative for hepatitis, HIV. Normal anti smooth muscle and mitochondrial antibodies. Ferritin, ceruloplasmin and alpha fetoprotein also normal. Alkaline phosphatase continues to trend up. Imaging in the ER with intrahepatic and extrahepatic biliary ductal dilatation. Will obtain MRCP and consult GI. #. Chronic gastroesophageal reflux disease -continue omeprazole in the morning and famotidine at bedtime #. Permanent atrial fibrillation -rate controlled in the ER. Hold Xarelto until GI evaluation #. Essential hypertension -continue p.o. home medications DVT prophylaxis: Hold Xarelto as above NPO Full code Patient will require two night minimum hospital stay for evaluation of abdominal discomfort with elevated liver enzymes. MRCP and GI consult pending, may need possible ERCP Quality Stroke Does the patient have a stroke diagnosis?: No VTE Prior VTE?: No VTE Risk Level:: Medical - low VTE Device Contraindication: Treatment Not Indicated VTE Drug Contraindication: Treatment Not Indicated
[2022-01-01] MEDS: Famotidine 20 MG TABLET PO ×2 (05:14→23:04)
[2022-01-01 06:28] LABS: Hematocrit 37.7 % (42.0-52.0); Hemoglobin 12.8 g/dl (14.0-18.0); Mean Corpuscular Hemoglobin 28.3 pg (27.0-33.0); Mean Corpuscular Volume 83.4 fL (80.0-98.0); Platelet Count 274 X10*3/uL (160-400); Red Blood Count 4.52 X10*6/uL (4.60-5.80); Red Cell Distribution Width 14.2 % (11.0-16.0); White Blood Count 6.8 X10*3/uL (4.8-10.8)
[2022-01-01 07:02] LABS: Alanine Aminotransferase 125 U/L (0-40); Albumin Level 3.3 g/dL (3.5-5.0); Alkaline Phosphatase 595 U/L (39-117); Anion Gap 17 (12-20); Aspartate Amino Transferase 72 U/L (5-37); Bilirubin Total 1.1 mg/dL (0.0-1.0); Blood Urea Nitrogen 15 mg/dL (9-16); Calcium 8.8 mg/dL (8.4-10.2); Carbon Dioxide 20 mmol/L (22-29); Chloride 106 mmol/L (96-108); Creatinine Clr Calc Pharmacy 84.4; Estimated Glomerular Filt Rate > 60; Glucose Random 99 mg/dL (60-115); Potassium 3.6 mmol/L (3.3-5.1); Sodium 139 mmol/L (135-145); Total Protein 6.5 g/dL (6.5-8.0)
--- NOTE | 2022-01-01 08:19 | PHA.MEDREC ---
Pharmacy Consult ? Medication Reconciliation Pharmacy has completed the medication reconciliation.Spoke to pt about medications and confirmed medications against list from pharmacy. He was unsure about some of the names but was able to confirm when they were read to him. He states atorvastatin was dc'd due to myalgia.
[2022-01-01 09:34] LABS: COVID-19 Test Negative (Negative); IDNOW Serial# 55D5AD1C
[2022-01-01] MEDS: Ferrous Sulfate 324 MG TABLET.DR PO (11:58)
[2022-01-01] MEDS: Metoprolol Tartrate 50 MG TABLET PO ×2 (11:58→23:04)
[2022-01-01] MEDS: Omeprazole 20 MG CAPSULE.DR PO (11:58)
[2022-01-01] MEDS: 0.9 % Sodium Chloride Flush 3 ML SYRINGE IVFLUSH (11:59)
--- NOTE | 2022-01-01 14:18 | MHC.CM.PN ---
CM spoke with Patient and addressed IMM with him. Patient lives in a house with his and he required no services nor DME CORPORATE ATTORNEY. Home, self care is the goal and CM has initiated and will follow for dc planning. Patient has received [employer] vax X 2 and his PCP/[facility]ACLE CONSULTANT is Kristin Elliott.
--- NOTE | 2022-01-01 14:30 | P.EN_ITS ---
Event Note Date of Service: 01/01/22 Event Note: 66-year-old gentleman with past medical history of permanent atrial fibrillation on Xarelto, hypertension, GERD presented to [facility] due to chronic abdominal pain noted to have elevated liver enzymes on recent lab data therefore referred to [place] [facility] Elevated LFTs At present patient denies abdominal pain, no nausea, no vomiting, has been followed by Gastroenterology as outpatient is status post upper endoscopy and colonoscopy without acute findings, hepatitis profile and HIV negative in the past, patient also had normal anti smooth muscles, and antimitochondrial antibodies, ceruloplasmin and alpha fetoprotein, patient noted to have elevated alk-phos, CT abdomen and pelvis showed intra and extrahepatic biliary ductal dilatation, likely will need MRCP, will discuss with Gastroenterology Will hold Xarelto for possible procedure Continue home medications for hypertension and atrial fibrillation. History of GERD continue omeprazole in the morning and famotidine at bedtime.
--- NOTE | 2022-01-01 15:02 | P.CNGI_ITS ---
History of Present Illness Data of Consult Service Date: 01/01/22 Requesting physician: Libra Mcclelland Primary Care Provider: Kristin Elliott NP HPI Reason for consult: Elevated LFTs This is a 6-year-old gentleman with past medical history of paroxysmal atrial fibrillation, hypertension, who has been having intermittent right upper quadrant abdominal pain. History was obtained from the patient, who states that for the last 3-4 months, he has been having episodic right upper quadrant abdominal pain. Describes the pain as starting within 10-15 minutes of eating anything, that last anywhere from 20 minutes to 2-3 hours. He has had extensive workup for this including bidirectional endoscopy ultrasound elastography. His LFTs have been noted to be chronically high since at least April. Three days ago, he had another episode of similar pain. However, this time he also had nausea, vomiting and chills. This lasted for almost half a day. Most recent transaminases from 12/31 for even higher with significant elevation in alkaline phosphatase to 706. Due to ongoing complaints, he was sent to the emergency room. Workup in the emergency room also included a CT abdomen and pelvis that showed dilation of extra and intrahepatic bile duct. This was followed up by an MRCP that shows a distal CBD stone. Review of Systems Review of Systems: Yes all other systems are reviewed and are negative PMFSH Past Medical History Medical History Anemia COVID-19 vaccine series completed GERD (gastroesophageal reflux disease) History of COVID-19 HTN (hypertension) Hyperlipidemia PAF (paroxysmal atrial fibrillation) Family History Family History Mother HTN (hypertension) Father Stroke Surgical History Surgical History Hx of appendectomy Hx of colonoscopy Social History Social History Household Members: Spouse Housing: House Alcohol intake: never Patient Tobacco Use Status: Former Tobacco user e-Cigarette/Vaping Use: Never Used Second Hand Smoke Exposure: No Use of substances other than those prescribed or required for medical reasons: No Advance Directives: No Advance Directives Information Provided: No service: No Current occupational status: employed Cognitive needs: No Hearing needs: No Vision needs: No Meds Allergies Allergy/AdvReac Type Severity Reaction Status Date / Time No Known Allergies Allergy Verified 12/17/21 08:46 Active Medications: Current Medications Acetaminophen (Acetaminophen 325 Mg Tablet) 650 mg PO Q6H PRN PRN Reason: Pain, Mild (Pain Scale 1-3) Famotidine (Famotidine 20 Mg Tablet) 20 mg PO BEDTIME [facility] Last Admin: 01/01/22 05:14 Dose: 20 mg Ferrous Sulfate (Ferrous Sulfate 324 Mg Tablet.) 324 mg PO DAILY [facility] Last Admin: 01/01/22 11:58 Dose: 324 mg Dextrose/Sodium Chloride (D51/2ns) 1,000 mls @ 80 mls/hr IVCONT .[id number] [facility] Melatonin (Melatonin 3 Mg Tablet) 6 mg PO BEDTIME PRN PRN Reason: Insomnia Metoprolol Tartrate (Metoprolol Tartrate 50 Mg Tablet) 50 mg PO BID [facility]; Protocol Last Admin: 01/01/22 11:58 Dose: 50 mg Morphine Sulfate (Morphine Sulfate 4 Mg/Ml Cartridge) 4 mg IVPUSH Q4H PRN; Protocol PRN Reason: Pain, Severe (Pain Scale 7-10) Omeprazole (Omeprazole 20 Mg Capsule.) 20 mg PO DAILY [facility] Last Admin: 01/01/22 11:58 Dose: 20 mg Ondansetron HCl (Ondansetron Hcl 4 Mg/2 Ml Vial) 4 mg IVPUSH Q8H PRN PRN Reason: Nausea and Vomiting Pharmacy Consult (Consult Rx Perform Med Rec) 1 each MISCELLANE ONCE PRN PRN Reason: Consult order Polyethylene Glycol (Polyethylene Glycol 3350 17 Gm Powd.Pack) 17 gm PO DAILY [facility] Sodium Chloride (0.9 % Sodium Chloride Flush 3 Ml Syringe) 3 ml IVFLUSH QSHIFT [facility] Last Admin: 01/01/22 11:59 Dose: 3 ml Home Medications Medication Instructions Recorded Confirmed Last Taken Type nitroglycerin 0.3 mg sublingual 0.3 mg sublingual Q5M PRN Chest 01/01/22 01/01/22 Unknown History tablet Pain rivaroxaban 20 mg tablet (Xarelto) 20 mg PO QPM 01/01/22 01/01/22 12/30/21 History Physical Exam Vital Signs: Vital Signs: Last Vital Signs Temp 98.7 F 01/01/22 00:56 Pulse 83 01/01/22 14:20 Resp 12 01/01/22 14:20 BP 154/90 H 01/01/22 14:20 Pulse Ox 94 01/01/22 14:20 O2 Del Method 01/01/22 14:20 BMI result Body Mass Index 32.3 Gen appear: No acute distress, well nourished HEENT: no icterus, no cervical lymphadenopathy Chest: No overt resp distress CVS: S1/S2, regular Abd: soft, nontender, nondistended, no guarding or rebound tenderness Psych: Stable affect, answering questions appropriately Neuro: A/Ox3 noted to move all extremities spontaneously Ext: no peripheral edema Results Labs CBC & Chem 7: 01/01/22 06:09 01/01/22 06:09 Labs: Short CBC 12/31/21 01/01/22 Range/Units 20:55 06:09 WBC 8.7 6.8 (4.8-10.8) X10*3/uL Hgb 13.8 L 12.8 L (14.0-18.0) g/dl Hct 42.8 37.7 L (42.0-52.0) % Plt Count 363 274 (160-400) X10*3/uL BMP 12/31/21 01/01/22 20:55 06:09 Sodium 140 139 Potassium 4.5 3.6 Chloride 105 106 Carbon Dioxide 24 20 L BUN 16 15 Creatinine 1.25 1.03 Calcium 9.5 8.8 D Liver Function 12/31/21 01/01/22 Range/Units 20:55 06:09 Total Bilirubin 1.5 H 1.1 H (0.0-1.0) mg/dL AST 107 H 72 H (5-37) U/L ALT 164 H 125 H (0-40) U/L Alkaline Phosphatase 706 H D 595 H (39-117) U/L Albumin 3.9 3.3 L (3.5-5.0) g/dL Urine 01/01/22 Range/Units 02:34 Urine Color Dark Yellow Urine Appearance Clear Urine pH 5.5 (5.0-9.0) Ur Specific [place] 1.025 (1.005-1.025) Urine Protein 100 (2+) H (Neg-Trace) mg/dL Urine Glucose (UA) Negative (Negative) mg/dL Imaging MRI - abdomen: My impression: MRCP images were personally reviewed. Distinct filling defect seen in distal 1/3 of the bile duct on coronal T2 images. Assessment and Plan (1) Epigastric pain: Status: Acute (2) Elevated liver enzymes: Status: Acute (3) Choledocholithiasis: Status: Acute Plan Presentation consistent with history of recent biliary colic, now with evidence of CBD stone on MRCP in the context of gallbladder stones and sludge. LFTs with significant elevation of alkaline phosphatase, bilirubin 1.1. Lipase on admission was normal. Recommendations: -Can be started on clear liquid diet today. -Will check with Drs. Reeves/Tung regarding availability for ERCP. -Continue to hold Xarelto in the meantime. If absolutely needed, can be started on IV heparin depending on his thrombotic risk. -Will need NONurgent surgery consultation for consideration of interval cholecystectomy -Daily LFTs Procedures Date of Service Date of Service: 01/01/22
[2022-01-01] MEDS: Dextrose 5 % and 0.45 % NaCl 1,000 ML 80 ML IVCONT (16:20)
[2022-01-02 03:48] VITALS: BP 150/84; PULSE 83; RESP 16; TEMP 36; O2SAT 95
[2022-01-02] MEDS: Dextrose 5 % and 0.45 % NaCl 1,000 ML 80 ML IVCONT (04:57)
[2022-01-02] MEDS: Acetaminophen 325 MG TABLET 650 MG PO (04:58)
[2022-01-02 07:11] VITALS: BP 160/90; PULSE 98; RESP 18; TEMP 36.1; O2SAT 97
[2022-01-02 07:50] LABS: Alanine Aminotransferase 102 U/L (0-40); Albumin Level 3.4 g/dL (3.5-5.0); Alkaline Phosphatase 642 U/L (39-117); Aspartate Amino Transferase 64 U/L (5-37); Bilirubin Direct 0.9 mg/dL (0.0-0.5); Bilirubin Total 1.2 mg/dL (0.0-1.0); Total Protein 6.7 g/dL (6.5-8.0)
[2022-01-02] MEDS: Omeprazole 20 MG CAPSULE.DR PO (08:09)
[2022-01-02] MEDS: Ferrous Sulfate 324 MG TABLET.DR PO (08:09)
[2022-01-02 11:17] VITALS: BP 148/84; RESP 18; TEMP 36.2; O2SAT 93
--- NOTE | 2022-01-02 11:24 | P.PNIM_ITS ---
Subjective Subjective Date of Service: 01/02/22 Interval History: Patient complaining of right upper quadrant abdominal pain after taking clear liquids, denies nausea vomiting common no fevers no chills, no other acute issues overnight. Review of Systems [employer] no headache no dizziness CVS no chest pain, no palpitation Respiratory no shortness of breath Review of Systems: Yes all other systems are reviewed and are negative Physical Exam Vital Signs: Vital Signs: Last Vital Signs Temp 97.2 F 01/02/22 11:17 Pulse 98 01/02/22 07:11 Resp 18 01/02/22 11:17 BP 148/84 H 01/02/22 11:17 Pulse Ox 93 01/02/22 11:17 O2 Del Method 01/02/22 11:17 BMI result Body Mass Index 32.3 Const: Other: General awake alert, resting comfortably in no acute distress. Anicteric sclera Neck supple no JVD. CVS regular rate rhythm, Respiratory lungs clear to auscultation, no respiratory distress, no wheeze, no rhonchi. Gastrointestinal abdomen soft, mild right upper quadrant tenderness to palpation, bowel sounds audible, no guarding , no rigidity. Extremities no edema. Neuro nonfocal Skin no rash Psych appropriate affect Objective Data Active Medications Acetaminophen (Acetaminophen 325 Mg Tablet) 650 mg PO Q6H PRN PRN Reason: Pain, Mild (Pain Scale 1-3) Last Admin: 01/02/22 04:58 Dose: 650 mg Documented By: CLEMENCIA Famotidine (Famotidine 20 Mg Tablet) 20 mg PO BEDTIME [facility] Last Admin: 01/01/22 23:04 Dose: 20 mg Documented By: CLEMENCIA Ferrous Sulfate (Ferrous Sulfate 324 Mg Tablet.) 324 mg PO DAILY [facility] Last Admin: 01/02/22 08:09 Dose: 324 mg Documented By: ALISSA Melatonin (Melatonin 3 Mg Tablet) 6 mg PO BEDTIME PRN PRN Reason: Insomnia Metoprolol Tartrate (Metoprolol Tartrate 50 Mg Tablet) 50 mg PO BID [facility]; Protocol Last Admin: 01/02/22 08:14 Dose: Not Given Documented By: ALISSA Non-Admin Reason: Patient Refused Morphine Sulfate (Morphine Sulfate 4 Mg/Ml Cartridge) 4 mg IVPUSH Q4H PRN; Protocol PRN Reason: Pain, Severe (Pain Scale 7-10) Omeprazole (Omeprazole 20 Mg Capsule.) 20 mg PO DAILY [facility] Last Admin: 01/02/22 08:09 Dose: 20 mg Documented By: ALISSA Ondansetron HCl (Ondansetron Hcl 4 Mg/2 Ml Vial) 4 mg IVPUSH Q8H PRN PRN Reason: Nausea and Vomiting Pharmacy Consult (Consult Rx Perform Med Rec) 1 each MISCELLANE ONCE PRN PRN Reason: Consult order Polyethylene Glycol (Polyethylene Glycol 3350 17 Gm Powd.Pack) 17 gm PO DAILY [facility] Last Admin: 01/02/22 08:10 Dose: Not Given Documented By: ALISSA Non-Admin Reason: NPO Sodium Chloride (0.9 % Sodium Chloride Flush 3 Ml Syringe) 3 ml IVFLUSH QSHIFT [facility] Last Admin: 01/02/22 08:11 Dose: Not Given Documented By: ALISSA Non-Admin Reason: IV Running Labs CBC & Chem 7: 01/01/22 06:09 01/01/22 06:09 Labs: Laboratory Results - last 24 hr 01/02/22 05:47 Total Bilirubin 1.2 H Direct Bilirubin 0.9 H AST 64 H ALT 102 H Alkaline Phosphatase 642 H Total Protein 6.7 Albumin 3.4 L Assessment and Plan (1) Choledocholithiasis: Status: Acute (2) Epigastric pain: Status: Acute (3) Afib: Status: Acute Plan 66-year-old male with pertinent history of atrial fibrillation on Xarelto, essential hypertension, gastroesophageal reflux disease who was sent to the em ergency department for evaluation of elevated liver enzymes. #.?Elevated liver enzymes/ Abdominal pain/choledocholithiasis Complaining of abdominal pain after taking clear liquids with history ch ronic intermittent postprandial upper abdominal discomfort. Status post outpatient upper endoscopy and colonoscopy which were without acute findings.? Liver elastography suggestive of compensated chronic liver disease. ? Previous labs reviewed:Negative for hepatitis, HIV.? Normal anti smooth muscle and mitochondrial antibodies.? Ferritin, ceruloplasmin and alpha fetoprotein also normal. LFTs remains elevated CT abdomen and pelvis showed intrahepatic and extrahepatic biliary ductal dilatation. MRCP showed stone in the distal common bile duct, seen by Gastroenterology, plan is for ERCP Will obtain surgical consultation for cholecystectomy Follow LFTs #.? Chronic gastroesophageal reflux disease -continue omeprazole in the morning and famotidine at bedtime #.? Permanent atrial fibrillation -rate controlled Hold Xarelto for ERCP, patient decline metoprolol since it made him cough in the past Will discuss need of medication for rate control and for blood pressure #.? Essential hypertension - continue p.o. home medications # obesity with a BMI of 32 contributing to other comorbidities recommended low- calorie diet DVT prophylaxis:? Hold Xarelto as above Full code Patient will require continued inpatient stay for ERCP related to elevated LFTs Quality Stroke Does the patient have a stroke diagnosis?: No VTE Prior VTE?: No VTE Risk Level:: Medical - low VTE Device Contraindication: Treatment Not Indicated VTE Drug Contraindication: Treatment Not Indicated
[2022-01-02 15:21] VITALS: BP 150/85; PULSE 96; RESP 18; TEMP 36.4; O2SAT 98
[2022-01-02] MEDS: 0.9 % Sodium Chloride Flush 3 ML SYRINGE IVFLUSH ×2 (15:34→23:47)
[2022-01-02] MEDS: Enoxaparin Sodium 40 MG/0.4 ML SYRINGE SUBCUT (16:10)
--- NOTE | 2022-01-02 17:07 | PM.CNGS ---
History of Present Illness Consult details Consult date: 01/02/22 Narrative: 66-year-old male referred for gallstones. He was admitted for gastric pain 2 days ago. He had a CT scan showing dilated biliary ducts so an MRCP was done which showed a CBD stone. He did have gallstones without evidence of cholecystitis. He currently denies any abdominal pain. He says he is comfortable right now. He denies any previous similar pain in the past. Review of Systems Constitutional: Constitutional: Denies chills and Denies fever(s) Cardiovascular: Cardiovascular: Denies chest pain, Denies dyspnea and Denies dyspnea on exertion Respiratory: Respiratory: Denies cough, Denies dyspnea and Denies dyspnea on exertion Gastrointestinal: Gastrointestinal: Denies hematochezia and Denies change in bowel habits Genitourinary: Genitourinary: Denies hematuria and Denies difficulty urinating Musculoskeletal: Musculoskeletal: Denies back pain and Denies limited range of motion Neurologic: Denies focal weakness and Denies convulsions Psychiatric: Psychiatric: Denies depression and Denies mood swings PMFSH Past Medical History Medical History Anemia COVID-19 vaccine series completed GERD (gastroesophageal reflux disease) History of COVID-19 HTN (hypertension) Hyperlipidemia PAF (paroxysmal atrial fibrillation) Family History Family History Mother HTN (hypertension) Father Stroke Surgical History Surgical History Hx of appendectomy Hx of colonoscopy Social History Social History Household Members: Spouse Housing: House Do you presently have visiting nurse or other home services: No Alcohol intake: never Patient Tobacco Use Status: Never used Tobacco e-Cigarette/Vaping Use: Never Used Second Hand Smoke Exposure: No service: No Current occupational status: employed Cognitive needs: No Hearing needs: No Vision needs: No Meds Allergies Allergy/AdvReac Type Severity Reaction Status Date / Time No Known Allergies Allergy Verified 01/03/22 05:15 Active Medications: Current Medications Acetaminophen (Acetaminophen 325 Mg Tablet) 650 mg PO Q6H PRN PRN Reason: Pain, Mild (Pain Scale 1-3) Last Admin: 01/02/22 04:58 Dose: 650 mg Enoxaparin Sodium (Enoxaparin Sodium 40 Mg/0.4 Ml Syringe) 40 mg SUBCUT Q24H [facility] Last Admin: 01/02/22 16:10 Dose: 40 mg Famotidine (Famotidine 20 Mg Tablet) 20 mg PO BEDTIME [facility] Last Admin: 01/01/22 23:04 Dose: 20 mg Ferrous Sulfate (Ferrous Sulfate 324 Mg Tablet.) 324 mg PO DAILY [facility] Last Admin: 01/02/22 08:09 Dose: 324 mg Melatonin (Melatonin 3 Mg Tablet) 6 mg PO BEDTIME PRN PRN Reason: Insomnia Metoprolol Tartrate (Metoprolol Tartrate 50 Mg Tablet) 50 mg PO BID [facility]; Protocol Last Admin: 01/02/22 08:14 Dose: Not Given Morphine Sulfate (Morphine Sulfate 4 Mg/Ml Cartridge) 4 mg IVPUSH Q4H PRN; Protocol PRN Reason: Pain, Severe (Pain Scale 7-10) Omeprazole (Omeprazole 20 Mg Capsule.) 20 mg PO DAILY [facility] Last Admin: 01/02/22 08:09 Dose: 20 mg Ondansetron HCl (Ondansetron Hcl 4 Mg/2 Ml Vial) 4 mg IVPUSH Q8H PRN PRN Reason: Nausea and Vomiting Pharmacy Consult (Consult Rx Perform Med Rec) 1 each MISCELLANE ONCE PRN PRN Reason: Consult order Polyethylene Glycol (Polyethylene Glycol 3350 17 Gm Powd.Pack) 17 gm PO DAILY [facility] Last Admin: 01/02/22 08:10 Dose: Not Given Sodium Chloride (0.9 % Sodium Chloride Flush 3 Ml Syringe) 3 ml IVFLUSH QSHIFT [facility] Last Admin: 01/02/22 15:34 Dose: 3 ml Home Medications Medication Instructions Recorded Confirmed Last Taken Type nitroglycerin 0.3 mg sublingual 0.3 mg sublingual Q5M PRN Chest 01/01/22 01/01/22 Unknown History tablet Pain rivaroxaban 20 mg tablet (Xarelto) 20 mg PO QPM 01/01/22 01/01/22 12/30/21 History Physical Exam Vital Signs: Vital Signs: Last Vital Signs Temp 97.5 F 01/02/22 15:21 Pulse 96 01/02/22 15:21 Resp 18 01/02/22 15:21 BP 150/85 H 01/02/22 15:21 Pulse Ox 98 01/02/22 15:21 O2 Del Method 01/02/22 15:21 BMI result Body Mass Index 32.3 Const: General: comfortable and no acute distress Orientation/consciousness: patient oriented x3 Neck: Neck: Yes no lymphadenopathy Resp: Auscultation: clear to auscultation bilaterally Cardio: Rhythm: regular rhythm GI: Palpation (GI): Soft to palpation, nontender and no guarding Neuro: General: patient oriented x3 Results Labs Result diagrams: 01/04/22 05:43 01/01/22 06:09 Labs: Abnormal lab results 01/02/22 Range/Units 05:47 Total Bilirubin 1.2 H (0.0-1.0) mg/dL Direct Bilirubin 0.9 H (0.0-0.5) mg/dL AST 64 H (5-37) U/L ALT 102 H (0-40) U/L Alkaline Phosphatase 642 H (39-117) U/L Albumin 3.4 L (3.5-5.0) g/dL Liver Function 01/02/22 Range/Units 05:47 Total Bilirubin 1.2 H (0.0-1.0) mg/dL Direct Bilirubin 0.9 H (0.0-0.5) mg/dL AST 64 H (5-37) U/L ALT 102 H (0-40) U/L Alkaline Phosphatase 642 H (39-117) U/L Albumin 3.4 L (3.5-5.0) g/dL Urine 01/01/22 Range/Units 02:34 Urine Color Dark Yellow Urine Appearance Clear Urine pH 5.5 (5.0-9.0) Ur Specific [place] 1.025 (1.005-1.025) Urine Protein 100 (2+) H (Neg-Trace) mg/dL Urine Glucose (UA) Negative (Negative) mg/dL All other labs normal. Assessment and Plan (1) Choledocholithiasis: Status: Resolved He has mild elevation of his bilirubin. His MRCP shows CBD stones. He has a very benign exam at this time. He is to undergo ERCP for the CBD stones. I explained to him that in view of his gallstones, we can do cholecystectomy thereafter to prevent recurrences of this biliary obstruction from CBD stones. He is currently comfortable right now. He understands the plan well. I will follow along while he is in the hospital. Procedures Date of Service Date of Service: 01/03/22
[2022-01-02 19:15] VITALS: BP 151/77; PULSE 97; RESP 19; TEMP 37.2; O2SAT 97
[2022-01-02] MEDS: Famotidine 20 MG TABLET PO (20:44)
[2022-01-02] MEDS: Metoprolol Tartrate 50 MG TABLET PO (20:44)
--- NOTE | 2022-01-02 22:36 | MHC.SHP ---
Pre-Procedural Eval Section A Date of Service: 01/02/22 The patient is an INPATIENT: Yes Changes since office visit: No Cold of Flu in the past 2 weeks, No New Medical Problems, No Changes in Medication and No Patient answered all questions The History & Physical has been completed within 30 days and I have reviewed it.: Yes Section B Chief Complaint: Abdominal pain Allergies: Allergies Allergy/AdvReac Type Severity Reaction Status Date / Time No Known Allergies Allergy Verified 12/17/21 08:46 Plan I have reviewed the history and physical and performed a pertinent physical examination on my patient. No changes have occurred unless specified.
[2022-01-02 23:35] VITALS: BP 159/93; PULSE 95; RESP 16; TEMP 37; O2SAT 96
[2022-01-03] VITALS (12 sets, daily range): BP systolic 113–187; BP diastolic 77–108; PULSE 85–129; RESP 14–20; TEMP 35.5–36.8; O2SAT 93–99
--- NOTE | 2022-01-03 04:28 | PC.NURSE ---
Patient alert and orientedx3. Having an ERCP done today. RN Pre-op teaching provided, Patient kept NPO after midnight. Denied any pain at this time.
--- NOTE | 2022-01-03 08:24 | P.PNGS_ITS ---
Subjective Subjective Date of Service: 01/03/22 <Erica Patton PA-C - Last Filed: 01/03/22 08:28> 01/03/22 <Jonn Escobedo MD - Last Filed: 01/03/22 13:05> Interval history: Feels ok. Denies pain. Awaiting ERCP today. <RICARDO Lorenzo Last Filed: 01/03/22 08:28> Physical Exam Vital Signs: Vital Signs: Last Vital Signs Temp 96 F L 01/03/22 07:12 Pulse 99 01/03/22 07:12 Resp 18 01/03/22 07:12 BP 113/86 01/03/22 07:12 Pulse Ox 98 01/03/22 07:12 O2 Del Method 01/03/22 07:12 BMI result Body Mass Index 32.3 <RICARDO Lorenzo Last Filed: 01/03/22 08:28> Const: General: comfortable, no acute distress and alert <Erica edmondson PA-C - Last Filed: 01/03/22 08:28> Nutritional Appearance: obese <Erica Patton PA-C - Last Filed: 01/03/22 08:28> Orientation/consciousness: patient oriented x3 <RICARDO Lorenzo Last Filed: 01/03/22 08:28> Eyes: Sclerae: sclerae normal <RICARDO Lorenzo Last Filed: 01/03/22 08:28> GI: Inspection: No distended <RICARDO Lorenzo Last Filed: 01/03/22 08:28> Palpation (GI): Soft to palpation, Tenderness to palpation present (GI) (mild) in the epigastrum and in the RUQ; Iglesias's sign negative, no guarding and not rigid <RICARDO Lorenzo Last Filed: 01/03/22 08:28> Skin: General skin exam: no rashes or lesions noted and no jaundice <RICARDO Lorenzo Last Filed: 01/03/22 08:28> Neuro: General: patient oriented x3 <RICARDO Lorenzo Last Fi led: 01/03/22 08:28> Objective Data Active Medications Acetaminophen (Acetaminophen 325 Mg Tablet) 650 mg PO Q6H PRN PRN Reason: Pain, Mild (Pain Scale 1-3) Last Admin: 01/02/22 04:58 Dose: 650 mg Documented By: CLEMENCIA Enoxaparin Sodium (Enoxaparin Sodium 40 Mg/0.4 Ml Syringe) 40 mg SUBCUT Q24H [facility] Last Admin: 01/02/22 16:10 Dose: 40 mg Documented By: ANTONIO Famotidine (Famotidine 20 Mg Tablet) 20 mg PO BEDTIME [facility] Last Admin: 01/02/22 20:44 Dose: 20 mg Documented By: ISRRAEL Ferrous Sulfate (Ferrous Sulfate 324 Mg Tablet.) 324 mg PO DAILY [facility] Last Admin: 01/02/22 08:09 Dose: 324 mg Documented By: ALISSA Lactated Ringer's (Lr) 1,000 mls @ 80 mls/hr IVCONT .[id number] [facility] Melatonin (Melatonin 3 Mg Tablet) 6 mg PO BEDTIME PRN PRN Reason: Insomnia Metoprolol Tartrate (Metoprolol Tartrate 50 Mg Tablet) 50 mg PO BID [facility]; Protocol Last Admin: 01/02/22 20:44 Dose: 50 mg Documented By: ISRRAEL Morphine Sulfate (Morphine Sulfate 4 Mg/Ml Cartridge) 4 mg IVPUSH Q4H PRN; Protocol PRN Reason: Pain, Severe (Pain Scale 7-10) Omeprazole (Omeprazole 20 Mg Capsule.) 20 mg PO DAILY [facility] Last Admin: 01/02/22 08:09 Dose: 20 mg Documented By: ALISSA Ondansetron HCl (Ondansetron Hcl 4 Mg/2 Ml Vial) 4 mg IVPUSH Q8H PRN PRN Reason: Nausea and Vomiting Pharmacy Consult (Consult Rx Perform Med Rec) 1 each MISCELLANE ONCE PRN PRN Reason: Consult order Polyethylene Glycol (Polyethylene Glycol 3350 17 Gm Powd.Pack) 17 gm PO DAILY [facility] Last Admin: 01/02/22 08:10 Dose: Not Given Documented By: ALISSA Non-Admin Reason: NPO Sodium Chloride (0.9 % Sodium Chloride Flush 3 Ml Syringe) 3 ml IVFLUSH QSHIFT [facility] Last Admin: 01/02/22 23:47 Dose: 3 ml Documented By: ISRRAEL <Erica Patton PA-C - Last Filed: 01/03/22 08:28> Labs CBC & Chem 7: : 01/01/22 06:09 01/01/22 06:09 <Erica Patton PA-C - Last Filed: 01/03/22 08:28> Procedures Date of Service Date of Service: 01/03/22 <Erica Patton PA-C - Last Filed: 01/03/22 08:28> Progress Note: A&P Assessment and plan (1) Choledocholithiasis: Status: Acute <RICARDO Lorenzo Last Filed: 01/03/22 08:28> Assessment and Plan: pt denies pain abd soft, not tender ERCP today depending on LFTs, can do lap kathy as inpt or outpt if he is discharged this weekend seen and examined independently - agree with STEPHANIE Patton <Jonn Escobedo MD - Last Filed: 01/03/22 13:05> Assessment and Plan: 66 year old male who presented with epigastric pain admitted for choledocolithiasis. Plan is for ERCP today. If he remains inpatient on Thursday, lap kathy possible open can be performed then if he is doing well and bilirubin has normalized. If he is stable and wants to go home over the weekend, he can f/u with Dr. Escobedo and schedule the [facility] as an outpatient. It was discussed that recurrence could occur while awaiting surgery. He wants to talk to case management about insurance coverage to decide. <RICARDO Lorenzo Last Filed: 01/03/22 08:28> Time Spent With Patient Time: Total time spent is greater than 50% in coordination of care (as documented) at patient's floor/unit and/or counseling patient: <RICARDO Lorenzo Last Filed: 01/03/22 08:28> Quality Stroke Does the patient have a stroke diagnosis?: No <RICARDO Lorenzo Last Filed: 01/03/22 08:28> VTE Prior VTE?: No <RICARDO Lorenzo Last Filed: 01/03/22 08:28> VTE Risk Level:: Medical - low <RICARDO Lorenzo Last Filed: 01/03/22 08:28> VTE Device Contraindication: Treatment Not Indicated <RICARDO Lorenzo Last Filed: 01/03/22 08:28> VTE Drug Contraindication: Treatment Not Indicated <RICARDO Lorenzo Last Filed: 01/03/22 08:28>
[2022-01-03] MEDS: 0.9 % Sodium Chloride Flush 3 ML SYRINGE IVFLUSH ×2 (10:34→17:08)
--- NOTE | 2022-01-03 11:48 | P.CONAN_ITS ---
HPI - Anesthesia Eval Consult details Narrative: CBD stone PMFSH Active Problems Active Problems: All Active Problems (Updated 01/01/22 @ 15:10 by Veronica Vargas MD) Choledocholithiasis (Acute) Epigastric pain (Acute) Abnormal physical evaluation (Acute) Afib (Acute) Chronic GERD (Acute) Anemia (Acute) Elevated liver enzymes (Acute) Hyperlipidemia (Acute) HTN (hypertension) (Acute) Past Medical History Medical History Anemia COVID-19 vaccine series completed GERD (gastroesophageal reflux disease) History of COVID-19 HTN (hypertension) Hyperlipidemia PAF (paroxysmal atrial fibrillation) Family History Family History Mother HTN (hypertension) Father Stroke Family history of problems with anesthesia: No Surgical History Surgical History Hx of appendectomy Hx of colonoscopy History of Problems with Anesthesia: No Social History Social History Household Members: Spouse Housing: House Do you presently have visiting nurse or other home services: No Alcohol intake: never Patient Tobacco Use Status: Never used Tobacco e-Cigarette/Vaping Use: Never Used Second Hand Smoke Exposure: No service: No Current occupational status: employed Cognitive needs: No Hearing needs: No Vision needs: No Meds Allergies Allergy/AdvReac Type Severity Reaction Status Date / Time No Known Allergies Allergy Verified 01/03/22 05:15 Active Medications: Current Medications Acetaminophen (Acetaminophen 325 Mg Tablet) 650 mg PO Q6H PRN PRN Reason: Pain, Mild (Pain Scale 1-3) Last Admin: 01/02/22 04:58 Dose: 650 mg Enoxaparin Sodium (Enoxaparin Sodium 40 Mg/0.4 Ml Syringe) 40 mg SUBCUT Q24H ABA Last Admin: 01/02/22 16:10 Dose: 40 mg Famotidine (Famotidine 20 Mg Tablet) 20 mg PO BEDTIME ABA Last Admin: 01/02/22 20:44 Dose: 20 mg Ferrous Sulfate (Ferrous Sulfate 324 Mg Tablet.Dr) 324 mg PO DAILY ABA Last Admin: 01/03/22 10:34 Dose: Not Given Lactated Ringer's (Lr) 1,000 mls @ 80 mls/hr IVCONT .[id number] [facility] Last Admin: 01/03/22 10:33 Dose: Not Given Melatonin (Melatonin 3 Mg Tablet) 6 mg PO BEDTIME PRN PRN Reason: Insomnia Metoprolol Tartrate (Metoprolol Tartrate 50 Mg Tablet) 50 mg PO BID [facility]; Protocol Last Admin: 01/03/22 10:35 Dose: Not Given Morphine Sulfate (Morphine Sulfate 4 Mg/Ml Cartridge) 4 mg IVPUSH Q4H PRN; Protocol PRN Reason: Pain, Severe (Pain Scale 7-10) Omeprazole (Omeprazole 20 Mg Capsule.Dr) 20 mg PO DAILY [facility] Last Admin: 01/03/22 10:35 Dose: Not Given Ondansetron HCl (Ondansetron Hcl 4 Mg/2 Ml Vial) 4 mg IVPUSH Q8H PRN PRN Reason: Nausea and Vomiting Pharmacy Consult (Consult Rx Perform Med Rec) 1 each MISCELLANE ONCE PRN PRN Reason: Consult order Polyethylene Glycol (Polyethylene Glycol 3350 17 Gm Powd.Pack) 17 gm PO DAILY [facility] Last Admin: 01/03/22 10:35 Dose: Not Given Sodium Chloride (0.9 % Sodium Chloride Flush 3 Ml Syringe) 3 ml IVFLUSH QSHIFT [facility] Last Admin: 01/03/22 10:34 Dose: 3 ml Home Medications Medication Instructions Recorded Confirmed Last Taken Type nitroglycerin 0.3 mg sublingual 0.3 mg sublingual Q5M PRN Chest 01/01/22 01/01/22 Unknown History tablet Pain rivaroxaban 20 mg tablet (Xarelto) 20 mg PO QPM 01/01/22 01/01/22 12/30/21 History Exam Exam Date and Time: January 03, 2022 1148 Height,Weight and Vital Signs: Height 5 ft 10 in Weight 102.058 kg Last Vital Signs Temp 98.3 F 01/03/22 10:18 Pulse 98 01/03/22 10:18 Resp 20 01/03/22 10:18 BP 169/85 H 01/03/22 10:18 Pulse Ox 98 01/03/22 10:18 O2 Del Method 01/03/22 10:18 Pertinent Lab Results Pertinent Lab Results: Laboratory Tests 12/31/21 12/31/21 01/01/22 20:55 20:55 02:09 WBC 8.7 RBC 5.23 Hgb 13.8 L Hct 42.8 MCV 81.8 MCH 26.4 L MCHC 32.2 RDW 14.1 Plt Count 363 MPV 9.6 Immature Gran % (Auto) 0.2 Neut % (Auto) 75.1 H Lymph % (Auto) 17.0 L [place] % (Auto) 6.4 Eos % (Auto) 0.7 Baso % (Auto) 0.6 Lymph # (Auto) 1.5 [place] # (Auto) 0.6 Eos # (Auto) 0.1 Baso # (Auto) 0.1 Abs Immat Gran (auto) 0.02 Absolute Neuts (auto) 6.6 Absolute Nucleated RBC 0.000 Nucleated RBC % (auto) 0.0 PT 12.1 INR 1.1 Sodium 140 Potassium 4.5 Chloride 105 Carbon Dioxide 24 Anion Gap 16 BUN 16 Creatinine 1.25 Estim Creat Clear Calc 69.5 Estimated GFR 58 Random Glucose 109 Calcium 9.5 Magnesium 2.3 Total Bilirubin 1.5 H Direct Bilirubin AST 107 H ALT 164 H Alkaline Phosphatase 706 H D Total Protein 7.7 Albumin 3.9 Lipase 13 Urine Color Urine Appearance Urine pH Ur Specific [place] Urine Protein Urine Glucose (UA) Urine Ketones Urine Blood Urine Nitrite Ur Leukocyte Esterase Urine RBC Urine WBC Ur Squamous Epith Cells Urine Bacteria Hyaline Casts COVID-19 ([facility]) COVID-19 Clin Com 01/01/22 01/01/22 01/01/22 02:34 06:09 06:09 WBC 6.8 RBC 4.52 L Hgb 12.8 L Hct 37.7 L MCV 83.4 MCH 28.3 MCHC 34.0 RDW 14.2 Plt Count 274 MPV 10.0 Immature Gran % (Auto) Neut % (Auto) Lymph % (Auto) [place] % (Auto) Eos % (Auto) Baso % (Auto) Lymph # (Auto) [place] # (Auto) Eos # (Auto) Baso # (Auto) Abs Immat Gran (auto) Absolute Neuts (auto) Absolute Nucleated RBC 0.000 Nucleated RBC % (auto) 0.0 PT INR Sodium 139 Potassium 3.6 Chloride 106 Carbon Dioxide 20 L Anion Gap 17 BUN 15 Creatinine 1.03 Estim Creat Clear Calc 84.4 Estimated GFR > 60 Random Glucose 99 Calcium 8.8 D Magnesium Total Bilirubin 1.1 H Direct Bilirubin AST 72 H ALT 125 H Alkaline Phosphatase 595 H Total Protein 6.5 Albumin 3.3 L Lipase Urine Color Dark Yellow Urine Appearance Clear Urine pH 5.5 Ur Specific [place] 1.025 Urine Protein 100 (2+) H Urine Glucose (UA) Negative Urine Ketones 15 Urine Blood Negative Urine Nitrite Negative Ur Leukocyte Esterase Trace H Urine RBC 0-2 Urine WBC 0-5 Ur Squamous Epith Cells 0-2 Urine Bacteria None Seen Hyaline Casts 3-5 COVID-19 ([facility]) COVID-19 Clin Com 01/01/22 01/02/22 09:13 05:47 WBC RBC Hgb Hct MCV MCH MCHC RDW Plt Count MPV Immature Gran % (Auto) Neut % (Auto) Lymph % (Auto) [place] % (Auto) Eos % (Auto) Baso % (Auto) Lymph # (Auto) [place] # (Auto) Eos # (Auto) Baso # (Auto) Abs Immat Gran (auto) Absolute Neuts (auto) Absolute Nucleated RBC Nucleated RBC % (auto) PT INR Sodium Potassium Chloride Carbon Dioxide Anion Gap BUN Creatinine Estim Creat Clear Calc Estimated GFR Random Glucose Calcium Magnesium Total Bilirubin 1.2 H Direct Bilirubin 0.9 H AST 64 H ALT 102 H Alkaline Phosphatase 642 H Total Protein 6.7 Albumin 3.4 L Lipase Urine Color Urine Appearance Urine pH Ur Specific [place] Urine Protein Urine Glucose (UA) Urine Ketones Urine Blood Urine Nitrite Ur Leukocyte Esterase Urine RBC Urine WBC Ur Squamous Epith Cells Urine Bacteria Hyaline Casts COVID-19 ([facility]) Negative COVID-19 Clin Com See Note Airway Mallampati Class: III TM Dist: >3cm Neck ROM: Full Partial: Upper and Lower Loose/Missing/Broken Teeth: Yes (many missing) Heart: irreg irreg s1s2 Lungs: cta b/l Assessment and Plan Assessment Anesthesia Assessment: Anesthesia Plan Discussed and Chart Reviewed Final Anesthetic Review Family History of Problems with Anesthesia: No History of Problems with Anesthesia: No NPO: Yes ASA Class: III Final Preanesthetic Review: No Changes in Pt Med Stat, Meds/Allgs Chart Reviewed, Consent Obtained/Reviewed and Anes Risks/Benef Reviewed Patient Risk: Intermediate Procedure Risk: Intermediate Assessment/Block/Sedation in SS: Assess/Block/Sedation-SS Anesthetic Plan Anesthetic Plan: GA and Agree w/ Assess. and Plan Disposition: Standard PACU
--- NOTE | 2022-01-03 12:50 | P.BOP_ITS ---
Brief Operative Note Date of Service: 01/03/22 Pre-op diagnosis: cbd stone Post-op diagnosis: same Procedure: ercp Surgeon: Marito Ruby Anesthesia: MAC Was an Fruit Pitter used for this Procedure?: No Estimated blood loss (mL): 0 Pathology: none sent Condition: stable Disposition: PACU
--- NOTE | 2022-01-03 12:50 | PM.EVENT ---
Event Note Date of Service: 01/03/22 Event Note: ERCP 8mm cbd stone removed after sphincterotomy. no other stones seen in cbd cystic duct did not fill. good post procedure drainage. rec advance diet ccy per surgery no anticoagulants x 5 days following sphincterotomy.
--- NOTE | 2022-01-03 13:16 | HO.PM.IMPN ---
Subjective Subjective Date of Service: 01/03/22 Interval History: NPO for ERCP , no complaints overnight, no nausea no vomiting denies abdominal pain this morning, no fevers no chills no headache no dizziness. Review of Systems CVS no chest pain, no palpitation Respiratory no cough, no shortness of breath Skin no rash Review of Systems: Yes all other systems are reviewed and are negative Physical Exam Vital Signs: Vital Signs: Last Vital Signs Temp 97 F 01/03/22 12:50 Pulse 102 H 01/03/22 13:05 Resp 16 01/03/22 13:05 BP 147/87 H 01/03/22 13:05 Pulse Ox 96 01/03/22 13:05 O2 Del Method 01/03/22 13:05 O2 Flow Rate 8 01/03/22 12:50 BMI result Body Mass Index 32.3 Const: Other: General awake alert, resting comfortably in no acute distress.? Anicteric sclera Neck? supple no JVD. CVS? regular rate rhythm, Respiratory lungs clear to auscultation, no respiratory distress, no wheeze, no rhonchi. Gastrointestinal abdomen soft, nontender, bowel sounds audible, no guarding , no rigidity. Extremities no edema. Neuro nonfocal Skin no rash Psych appropriate affect Objective Data Active Medications Acetaminophen (Acetaminophen 325 Mg Tablet) 650 mg PO Q6H PRN PRN Reason: Pain, Mild (Pain Scale 1-3) Last Admin: 01/02/22 04:58 Dose: 650 mg Documented By: CLEMENCIA Famotidine (Famotidine 20 Mg Tablet) 20 mg PO BEDTIME [facility] Last Admin: 01/02/22 20:44 Dose: 20 mg Documented By: ISRRAEL Fentanyl (Fentanyl Citrate/Pf 100 Mcg/2 Ml Vial) 50 mcg IVPUSH Q5M PRN; Protocol PRN Reason: Pain, Severe (Pain Scale 7-10) Ferrous Sulfate (Ferrous Sulfate 324 Mg Tablet.) 324 mg PO DAILY [facility] Last Admin: 01/03/22 10:34 Dose: Not Given Documented By: ALISSA Non-Admin Reason: NPO Lactated Ringer's (Lr) 1,000 mls @ 80 mls/hr IVCONT .[id number] [facility] Last Admin: 01/03/22 10:33 Dose: Not Given Documented By: ALISSA Non-Admin Reason: Off Unit: Surgery Melatonin (Melatonin 3 Mg Tablet) 6 mg PO BEDTIME PRN PRN Reason: Insomnia Metoprolol Tartrate (Metoprolol Tartrate 50 Mg Tablet) 50 mg PO BID [facility]; Protocol Last Admin: 01/03/22 10:35 Dose: Not Given Documented By: ALISSA Non-Admin Reason: Patient Refused Morphine Sulfate (Morphine Sulfate 4 Mg/Ml Cartridge) 4 mg IVPUSH Q4H PRN; Protocol PRN Reason: Pain, Severe (Pain Scale 7-10) Omeprazole (Omeprazole 20 Mg Capsule.) 20 mg PO DAILY [facility] Last Admin: 01/03/22 10:35 Dose: Not Given Documented By: ALISSA Non-Admin Reason: NPO Ondansetron HCl (Ondansetron Hcl 4 Mg/2 Ml Vial) 4 mg IVPUSH Q8H PRN PRN Reason: Nausea and Vomiting Ondansetron HCl (Ondansetron Hcl 4 Mg/2 Ml Vial) 4 mg IVPUSH ONCE PRN PRN Reason: Nausea and Vomiting Pharmacy Consult (Consult Rx Perform Med Rec) 1 each MISCELLANE ONCE PRN PRN Reason: Consult order Polyethylene Glycol (Polyethylene Glycol 3350 17 Gm Powd.Pack) 17 gm PO DAILY [facility] Last Admin: 01/03/22 10:35 Dose: Not Given Documented By: ALISSA Non-Admin Reason: NPO Sodium Chloride (0.9 % Sodium Chloride Flush 3 Ml Syringe) 3 ml IVFLUSH QSHIFT [facility] Last Admin: 01/03/22 10:34 Dose: 3 ml Documented By: ALISSA Labs CBC & Chem 7: 01/01/22 06:09 01/01/22 06:09 Assessment and Plan (1) Choledocholithiasis: Status: Acute (2) Epigastric pain: Status: Acute (3) Afib: Status: Acute Plan 66-year-old male with pertinent history of atrial fibrillation on Xarelto, essential hypertension, gastroesophageal reflux disease who was sent to the emergency department for evaluation of elevated liver enzymes. #.?Elevated liver enzymes/ Abdominal pain/choledocholithiasis Underwent ERCP today by Dr. Ruby 8 mm CBD stone removed after sphincterotomy , no other stones were seen in CBD, cystic duct did not fill, GI recommend to advanced diet and no anticoagulation x5 days Will place patient back on diet Seen by Dr. Escobedo he recommend cholecystectomy that can be done in patient versus outpatient depending on patient clinical condition and LFTs Follow LFTs #.? Chronic gastroesophageal reflux disease -continue omeprazole in the morning and famotidine at bedtime #.? Permanent atrial fibrillation -rate controlled Hold Xarelto x 5 days post sphincterotomy continue metoprolol for rate control #.? Essential hypertension - continue p.o. home medications # obesity with a BMI of 32 contributing to other comorbidities recommended low-calorie diet DVT prophylaxis:? Hold Xarelto as above will place on compression boots Full code Patient will require continued inpatient stay post ERCP for follow-up of LFTs and possible cholecystectomy Quality Stroke Does the patient have a stroke diagnosis?: No VTE Prior VTE?: No VTE Risk Level:: Medical - low VTE Device Contraindication: Treatment Not Indicated VTE Drug Contraindication: Treatment Not Indicated
[2022-01-03] MEDS: Famotidine 20 MG TABLET PO (19:47)
[2022-01-03] MEDS: Metoprolol Tartrate 50 MG TABLET PO (19:47)
[2022-01-04] MEDS: 0.9 % Sodium Chloride Flush 3 ML SYRINGE IVFLUSH ×2 (00:33→08:43)
[2022-01-04 03:46] VITALS: BP 148/84; PULSE 82; RESP 18; TEMP 36.1; O2SAT 99
--- NOTE | 2022-01-04 05:58 | OP_ITS ---
SURGEON: Marito Ruby MD INDICATIONS: Common bile duct stone identified on MRI imaging. PREOPERATIVE DIAGNOSIS: POSTOPERATIVE DIAGNOSIS: PROCEDURE PERFORMED: ERCP with sphincterotomy and extraction of common bile duct stone. Date: 01/03/22 ESTIMATED BLOOD LOSS: COMPLICATIONS: ANESTHESIA: General anesthesia. ASSISTANTS: SPECIMENS: DESCRIPTION OF PROCEDURE: History and physical performed. The risks and benefits of the procedure were explained to the patient. Informed consent was obtained. The patient was placed in the prone position with a wedge under the right shoulder. The Olympus therapeutic duodenoscope was introduced into the esophagus, stomach, and duodenum. Examination was performed. The scope was removed. He tolerated the procedure well and was taken to the recovery area in stable condition. FINDINGS: Endoscopy: Limited examination of the esophagus, stomach, and duodenum was within normal limits. The major papilla was normal. The bile duct was cannulated using guidewire and sphincterotome. Cholangiography showed 1 filling defect consistent with the MRI findings. A sphincterotomy was performed in standard manner with no immediate complications. The bile duct was swept multiple times with a 12 mm balloon and an 8 mm common bile duct stone was extracted. Occlusion cholangiography showed normal intrahepatic ducts. The bile duct itself was somewhat dilated at about 12 mm. The cystic duct was not seen to fill. There was excellent drainage of clear yellow bile at the termination of the procedure. No pancreatogram was attempted or obtained. IMPRESSION: Common bile duct stone. RECOMMENDATION: 1. Cholecystectomy to be done as per General Surgery. 2. The patient should not be given anticoagulants for 5 days because he has undergone sphincterotomy. 3. Advance diet. MD TON Ryan/RITA / [id number] [facility]
[2022-01-04 06:07] LABS: MANUAL DIFF FLAG NO
[2022-01-04 06:16] LABS: Basophils Percent Auto 0.2 % (0-2); Eosinophils Percent Auto 0.1 % (0-4); Hematocrit 40.5 % (42.0-52.0); Hemoglobin 13.3 g/dl (14.0-18.0); Imm Gran Abs Auto 0.03 X10*3/uL (0.00-0.03); Imm Gran Pct Auto 0.4 % (0.0-0.4); Lymphocytes Absolute Auto 1.1 X10*3/uL (1.2-4.9); Lymphocytes Percent Auto 13.4 % (20-40); Mean Corpuscular HGB Conc 32.8 g/dl (31.0-36.0); Mean Corpuscular Hemoglobin 26.8 pg (27.0-33.0); Mean Corpuscular Volume 81.7 fL (80.0-98.0); Monocytes Absolute Auto 0.5 X10*3/uL (0.1-1.2); Monocytes Percent Auto 6.2 % (2-11); Neutrophils Absolute Auto 6.5 x10*3/uL (2.0-8.3); Neutrophils Percent Auto 79.7 % (45-73); Platelet Count 392 X10*3/uL (160-400); Red Blood Count 4.96 X10*6/uL (4.60-5.80); Red Cell Distribution Width 13.3 % (11.0-16.0); White Blood Count 8.1 X10*3/uL (4.8-10.8)
[2022-01-04 06:39] LABS: Alanine Aminotransferase 68 U/L (0-40); Albumin Level 3.5 g/dL (3.5-5.0); Alkaline Phosphatase 584 U/L (39-117); Aspartate Amino Transferase 33 U/L (5-37); Bilirubin Direct 0.5 mg/dL (0.0-0.5); Bilirubin Total 0.7 mg/dL (0.0-1.0); Total Protein 6.9 g/dL (6.5-8.0)
--- NOTE | 2022-01-04 07:11 | HO.POSTANES ---
Post Anesthesia Evaluation Post Anesthesia Evaluation Vital Signs: Vital Signs Temp Pulse Resp BP Pulse Ox O2 Del Method 01/04/22 03:46 97 F 82 18 148/84 H 99 Room Air 01/03/22 23:31 96.8 F 87 18 141/84 H 97 Room Air 01/03/22 19:22 97.0 F 85 18 144/88 H 98 Room Air Anesthesia: General Endotracheal-GETA Mental Status: Awake Pain Control: Satisfactory Nausea/Vomiting: None Hydration: Adequate Anesthesia-Related Issues: No Anes. Related Issues
[2022-01-04 07:41] VITALS: BP 139/94; PULSE 96; RESP 18; TEMP 36.3; O2SAT 97
[2022-01-04] MEDS: Omeprazole 20 MG CAPSULE.DR PO (08:43)
[2022-01-04] MEDS: Metoprolol Tartrate 50 MG TABLET PO (08:43)
[2022-01-04] MEDS: Ferrous Sulfate 324 MG TABLET.DR PO (08:43)
[2022-01-04] MEDS: polyethylene glycoL 3350 17 GM POWD.PACK PO (08:43)
--- NOTE | 2022-01-04 10:10 | MHC.CM.PN ---
PT MEDICALLY CLEARED FOR D/C HOME W/PLAN TO SCHEDULE OUPT [facility]ONI W/DR [facility]ER ON THURSDAY, PT'S WILL TRANSPORT AT 1PM.
--- NOTE | 2022-01-04 10:36 | PM.DS ---
DS: Providers Provider Date of Service: 01/04/22 Date of admission: 01/01/22 04:17 Primary care physician: Kristin Elliott NP Consults: 01/01/22 04:36 Consult to Gastroenterology Routine Consulting Provider: Veronica Vargas Reason for consultation: Abnormal LFTs Has provider been notified: No 01/02/22 15:39 Consult to General Surgery Routine Consulting Provider: Jonn Escobedo Reason for consultation: cbd/need ccy DS: Diagnosis Discharge Diagnosis (1) Choledocholithiasis: Status: Acute (2) Epigastric pain: Status: Acute (3) Afib: Status: Acute DS: Summary Hospital Course Hospital Course: History of presenting illness Date of Service: 01/01/22 Chief Complaint: Abdominal pain This is a 66-year-old male with pertinent history of atrial fibrillation on Xarelto, essential hypertension, gastroesophageal reflux disease who was sent to the emergency department for evaluation of elevated liver enzymes.? Patient states he has been having abdominal discomfort for about 3 months.? He has been following Gastroenterology as an outpatient and has had upper endoscopy and colonoscopy done which was without any acute findings.? Patient continued to have upper abdominal discomfort, worse with certain types of food.? No relieving factors.? It is associated with nausea and chills.? Patient denies fever, shortness of breath, chest discomfort, palpitations.? Patient states his urine turned dark every time he has abdominal discomfort.? No changes in color of stool or bowel habits.? Patient had outpatient blood work done which revealed elevated liver enzymes and he was sent to the ER for further evaluation and management.? He denies hematochezia or melena. In the emergency department, patient's alkaline phosphatase was found to be elevated compared to previous values.? Imaging was concerning for intrahepatic and extrahepatic biliary ductal dilatation Hospital course 66-year-old male with pertinent history of atrial fibrillation on Xarelto, essential hypertension, gastroesophageal reflux disease who was sent to the emergency department for evaluation of elevated liver enzymes. #.?Elevated liver enzymes/ Abdominal pain patient admitted to medical floor and MRCP was obtained that showed common bile duct stone, therefore he Underwent ERCP 01/03/[address] Ruby 8 mm CBD stone removed after sphincterotomy , no other stones were seen in CBD, cystic duct did not fill, subsequently diet with its advance patient is tolerating diet well total bili has normalized on repeat LFTs, patient has been recommended to hold Xarelto for 5 days post sphincterotomy that can be resume on 01/09 he has been instructed to call general surgeon Dr. Escobedo for outpatient cholecystectomy soon after discharge #.? Chronic gastroesophageal reflux disease -continue omeprazole in the morning and famotidine at bedtime #.? Permanent atrial fibrillation -rate controlled Hold Xarelto x 5 days post sphincterotomy continue metoprolol for rate control #.? Essential hypertension? continue p.o. home medications # obesity with a BMI of 32 contributing to other comorbidities recommended low-calorie diet Time Spent with Patient Time attestation: Total time spent providing and/or coordinating discharge services: Discharge coordination time: Greater than 30 minutes Quality: Safe Use of Opioids Does Pt have an Active Cancer Diagnosis on the Problem List?: No Quality: Stroke Does the patient have a stroke diagnosis?: No Physical Exam Vital Signs: Vital Signs: Last Vital Signs Temp 97.4 F 01/04/22 07:41 Pulse 96 01/04/22 07:41 Resp 18 01/04/22 07:41 BP 139/94 H 01/04/22 07:41 Pulse Ox 97 01/04/22 07:41 O2 Del Method 01/04/22 07:41 O2 Flow Rate 8 01/03/22 12:50 BMI result Body Mass Index 32.3 Const: Other: General awake alert, resting comfortably in no acute distress.? Anicteric sclera Neck? supple no JVD. CVS? regular rate rhythm, Respiratory lungs clear to auscultation, no respiratory distress, no wheeze, no rhonchi. Gastrointestinal abdomen soft, nontender, bowel sounds audible, no guarding , no rigidity. Extremities no edema. Neuro nonfocal Skin no rash Psych appropriate affect DS: Data Data Completed and Pending Labs on day of discharge: Laboratory Results - last 24 hr 01/04/22 01/04/22 05:43 05:43 WBC 8.1 RBC 4.96 Hgb 13.3 L Hct 40.5 L MCV 81.7 MCH 26.8 L MCHC 32.8 RDW 13.3 Plt Count 392 D MPV 10.0 Immature Gran % (Auto) 0.4 Neut % (Auto) 79.7 H Lymph % (Auto) 13.4 L [place] % (Auto) 6.2 Eos % (Auto) 0.1 Baso % (Auto) 0.2 Lymph # (Auto) 1.1 L [place] # (Auto) 0.5 Eos # (Auto) 0.0 Baso # (Auto) 0.0 Abs Immat Gran (auto) 0.03 Absolute Neuts (auto) 6.5 Absolute Nucleated RBC 0.000 Nucleated RBC % (auto) 0.0 Total Bilirubin 0.7 Direct Bilirubin 0.5 AST 33 D ALT 68 H Alkaline Phosphatase 584 H Total Protein 6.9 Albumin 3.5 Discharge Plan Discharge Anticipated Discharge Date/Time: 01/04/22 10:32 Patient Disposition: Home, Self-Care Discharge Diagnosis: Choledocholithiasis Referrals: Kristin Elliott, [employer] [Primary Care Provider] - 1 Week Discharge Medications: Continued metoprolol tartrate 50 mg tablet 50 mg PO BID Qty: 180 2RF nitroglycerin 0.3 mg tablet, sublingual 0.3 mg sublingual Q5M MDD 3 doses then call 911 PRN (Reason: Chest Pain) amlodipine 10 mg tablet 10 mg PO DAILY Qty: 90 2RF omeprazole 20 mg capsule,delayed release(DR/EC) 20 mg PO DAILY Qty: 90 1RF polyethylene glycol 3350 [Miralax] 17 gram/dose powder 17 g PO DAILY Qty: 510 2RF famotidine [Pepcid] 20 mg tablet 20 mg PO BEDTIME Qty: 30 3RF ferrous sulfate 325 mg (65 mg iron) tablet 325 mg PO DAILY Qty: 30 4RF Held Xarelto 20 mg tablet 20 mg PO QPM Hold Instructions: Resume on 01/09/22. Discharge Orders: Discharge Order (Routine); Ordered 01/04/22 Ordered By: Wood Rosales Diet: Low fat, low cholesterol Activity on Discharge: As tolerated Stand Alone Forms: Patient Portal Discharge page Care Plan Goals: Common bile duct stone removed with sphincterotomy, recommend to hold Xarelto through January [address] Jonn Escobedo on Thursday to arrange for outpatient cholecystectomy informed that Xarelto is on hold so maybe procedure can be done early as an outpatient Avoid low-fat diet Health Concerns: Take all other medications as prescribed Plan of Treatment: Outpatient follow-up with General surgery Dr. Jonn Escobedo call for appointment on Thursday for cholecystectomy Assessment: As above
== END 2022-01-04 11:41 | disposition home or self-care (01) | DRG 446 ==
LOC: HO.ED 01-01 04:18 → HO.EDOVER 01-01 05:18 → HO.S3 01-01 14:45
PROVIDERS: Internal Medicine Gastroenterology; Nurse Practitioner Family; Admitting Provider Student in an Organized Health Care Education/Training Program; Emergency Provider Internal Medicine; PCP Hospitalist; Visit Provider Hospitalist
PROC: (CPT 43260; principal; 2022-01-03 11:10)
DX: K80.50 Calculus of bile duct without cholangitis or cholecystitis without obstruction (principal); K21.9 Gastro-esophageal reflux disease without esophagitis; K76.9 Liver disease, unspecified; E78.5 Hyperlipidemia, unspecified; I10 Essential (primary) hypertension; E66.9 Obesity, unspecified; Z68.32 Body mass index [BMI] 32.0-32.9, adult; I48.0 Paroxysmal atrial fibrillation; Z20.822 Contact with and (suspected) exposure to COVID-19; Z79.01 Long term (current) use of anticoagulants; Z79.899 Other long term (current) drug therapy
CPT/HCPCS: 43264; 36415; 74177; 74181; 80053; 80076; 81001; 83690; 83735; 85025; 85027; 85610; 87635; 99218; 99285; J0330; J1100; J1650; J1956; J2250; J2405; J3010; Q9967

== ENCOUNTER → 2022-01-22 07:17 | Outpatient (REF) | payer OTHER, SELFPAY ==
--- NOTE | 2022-01-22 07:19 | CA_ITS ---
Transthoracic Echocardiogram Patient (Last, First, Middle): Eder Lopez, Gender: Male Date of : 1955 Age: 66 Procedure Date: 01/22/2022 Procedure Type: Transthoracic Echocardiogram Location: OP Height: 177.8 cm Weight: 102.06 kg BSA: 2.19 m2 Heart Rate: 96 bpm BP: 140 / 80 mmHg [employer] Supervisor: JEROD Referring MD: Soraya Khan [facility]- Tv Host: Byron Sage MD Symptoms: R74.8 - Abnormal levels of other serum enzymes Study Quality: Adequate ECG Rhythm: Atrial Fibrillation Conclusions: - 1. Low normal LV systolic function with mild LVH 2. At least moderately dilated left atrium 3. Normal cardiac valvular Dopplers 4. Normal RV systolic pressure 5. No gross pericardial effusion Findings Left Ventricle Normal left ventricular cavity size. There is mildly increased left ventricular wall thickness. The left ventricular systolic function is low normal. The visually estimated ejection fraction is between 50-55%. Diastolic function is indeterminate on the basis of available data. Wall Motion Rest Echo Findings The basal inferior and basal inferoseptal segments are hypokinetic. All other scored wall segments showed normal motion. Right Ventricle Mildly increased right ventricular cavity size. There is normal right ventricular systolic function. Atria The left atrium is moderately dilated. There is no evidence of interatrial shunt. The right atrium is mildly dilated. Aortic Valve Normal aortic valve structure and function. There is no aortic valve stenosis. There is no aortic valve regurgitation. Mitral Valve Normal mitral valve structure and function. There is trace mitral valve regurgitation. There is no mitral valve stenosis. Pulmonic Valve The pulmonic valve was not well visualized. Tricuspid Valve Likely normal tricuspid valve structure and function. The right ventricular systolic pressure is normal. Great Vessels All visible segments of the aorta are normal in size. The pulmonary artery was not well visualized. Venous The inferior vena cava was not well visualized. Pericardium/Pleural There is no evidence of pericardial effusion. Prior Study Comparison No prior study available for comparison. Measurements 2D Linear Measurements IVSd: 1.20 0.6-0.9/0.6-1.0 cm LVIDd: 4.78 3.9-5.3/4.2-5.9 cm LVIDd Index: 2.18 2.4-3.2/2.2-3.1 cm/m2 LVIDs: 3.12 2.0-3.6 cm LVPWd: 1.19 0.7-1.1 cm LA Diam: 4.50 2.7-3.8/3.0-4.0 cm LAIDs Index: 2.05 1.5-2.3 cm/m2 LV Mass: 269.76 67-162/88-224 g LV Mass Index: 123.18 43-95/49-115 g/m2 LVOT Diam: 2.20 3.0+(-)1.3 cm 2D Systolic Function EF 4C: 54.60 >55% EF 2C: 48.20 >55% EF BiP: 52.30 >55% Mitral Valve E'Lateral: 10.60 E'Medial: 8.05 Aortic Valve AoV Pk River: 0.81 AoV Mn River: 0.62 AoV VTI: 0.17 AoV Pk Grad: 3.00 Aov Mn Grad: 2.00 CHANCE Cont.VTI: 3.14 LVOT LVOT Pk River: 0.71 LVOT Mn River: 0.52 LVOT VTI: 0.14 LVOT Pk Grad: 2.00 LVOT Mn Grad: 1.00 LVOT Diam: 2.20 LVOT Area: 3.80 Diastolic Function E'Medial: 8.05 E' Laterial: 10.60 Right Ventricle TAPSE (mm): 24.40 TVS' River: 9.96 Tricuspid Valve TR Pk River: 1.85 TR Pk Grad: 14.00 Great Vessels Aorta Sinus of Valsalva: 3.90 2.0-3.5 cm Ao Asc: 3.20 2.1-3.4 cm Pulmonary Valve PV Pk River: 0.70 Peak PV Grad: 2.00 Updated in Other Vendor System with Status of Final Byron Sage MD electronically signed on 01/24/2022 8:22:47 AM with status of Final
== END ==
LOC: HO.CARD 07:17
PROVIDERS: PCP Hospitalist; Visit Provider Nurse Practitioner Family
DX: R74.01 Elevation of levels of liver transaminase levels (principal); R74.8 Abnormal levels of other serum enzymes
CPT/HCPCS: 93306

== ENCOUNTER 2022-02-11 09:04 | Outpatient (REF) | payer OTHER, SELFPAY ==
[2022-02-11 09:41] LABS: INTERNATIONAL NORM RATIO 1.8 (0.9-1.1); Prothrombin Time 21.2 SEC (10.0-13.1)
[2022-02-11 10:09] LABS: Alanine Aminotransferase 23 U/L (0-40); Alkaline Phosphatase 120 U/L (39-117); Aspartate Amino Transferase 23 U/L (5-37); Bilirubin Direct 0.2 mg/dL (0.0-0.5); Bilirubin Total 0.5 mg/dL (0.0-1.0); Gamma Glutamyl Transpeptidase 80 U/L (11-51); Total Protein 7.3 g/dL (6.5-8.0)
== END 2022-02-11 09:05 | disposition home or self-care (01) ==
LOC: HO.LAB 09:04
PROVIDERS: PCP Hospitalist; Visit Provider Nurse Practitioner Family
DX: K80.71 Calculus of gallbladder and bile duct without cholecystitis with obstruction (principal); R74.8 Abnormal levels of other serum enzymes
CPT/HCPCS: 36415; 80076; 82977; 85610; 99212

== ENCOUNTER 2022-03-07 08:50 | Outpatient (REF) | payer OTHER, SELFPAY ==
[2022-03-07 10:03] LABS: Blood Urea Nitrogen 15 mg/dL (9-16); Estimated Glomerular Filt Rate > 60; Lipase 13 U/L (8-78)
== END 2022-03-07 08:51 | disposition home or self-care (01) ==
LOC: HO.LAB 08:50
PROVIDERS: PCP Hospitalist; Visit Provider Nurse Practitioner Family
DX: R10.9 Unspecified abdominal pain (principal); E65 Localized adiposity; R74.8 Abnormal levels of other serum enzymes; D64.9 Anemia, unspecified
CPT/HCPCS: 36415; 82565; 83690; 84520

== ENCOUNTER 2022-03-17 06:43 | Outpatient (REF) | payer OTHER, SELFPAY ==
--- NOTE | ~2022-03-17 | CT_ITS ---
EXAMINATION: CT ABDOMEN AND PELVIS WITH CONTRAST CLINICAL INFORMATION: Unspecified abdominal pain. COMPARISON: MRCP and abdomen CT from 01/01/2022. TECHNIQUE: Multidetector volumetric images were obtained from the superior aspect of the liver through the pubic symphysis following administration 85 mL of Omnipaque 350 intravenous contrast. Oral contrast was given. Sagittal and coronal reformatted images were obtained on the technologist's workstation. This CT examination was performed using dose optimization techniques as appropriate, variously including the following: *Automated exposure control *Adjustment of mA and/or kV according to patient size (this includes techniques or standardized protocols for targeted exams where dose is matched to indication/reason for exam; i.e. extremities or head) *Use of iterative reconstruction technique DLP: 654 mGy-cm FINDINGS: LUNG BASES: No pulmonary consolidation or pleural effusion. LIVER: Liver has normal size and contour. 0.7 cm cyst in the right lobe of the liver. No suspicious liver lesion. Mild pneumobilia is present. GALLBLADDER AND BILIARY TREE: Gallbladder is underdistended. No calcified stones within the gallbladder lumen. Again, mild pneumobilia is noted. Common bile duct is chronically, mildly dilated; it measures up to 9 - 10 mm AP diameter. PANCREAS: Normal. No edema, pancreatic ductal dilatation or mass. SPLEEN: Normal. ADRENAL GLANDS: Normal. KIDNEYS AND URETERS: Chronic irregular cortical atrophy of the left kidney. No nephrolithiasis or hydronephrosis. BLADDER: Normal. No calculi or wall thickening. BOWEL AND PERITONEUM: Stomach is unremarkable. No dilated bowel loops. No evidence of appendicitis. No focal bowel wall thickening, mesenteric fat stranding or free fluid. Diverticula of the colon without evidence of diverticulitis. ABDOMINAL WALL: No acute findings compared to 01/01/2022. Minimal protrusion of fat into the umbilicus. VASCULATURE: Atherosclerosis of the abdominal aorta without abdominal aorta aneurysm. 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 LYMPH NODES: No pathologic sized lymph nodes in the abdomen or pelvis. No inguinal lymphadenopathy. PELVIC VISCERA: Prostate gland is unremarkable. MUSCULOSKELETAL: No acute findings within the degenerated spine. Findings include moderate loss of disc height and vacuum disc phenomenon at L4-5 and L5-S1. CT/CT abdomen pelvis w IV con IMPRESSION: * No acute imaging abnormalities in the abdomen or pelvis compared to 01/01/2022. * Common bile duct is chronically, mildly dilated. Mild pneumobilia is observed in this patient with history of cholelithiasis and choledocholithiasis, status post ERCP in December 2021. * Colonic diverticulosis without evidence of diverticulitis.
[2022-03-17] MEDS: Barium Sulfate Oral (Vanilla) 450 ML ORAL.SUSP 900 ML PO (09:53)
[2022-03-17] MEDS: iohexoL 350 MG/ML 100 ML INFUS..BTL IV (09:54)
== END 2022-03-17 06:44 | disposition home or self-care (01) ==
LOC: HO.CT 06:43
PROVIDERS: Visit Provider Nurse Practitioner Family
DX: R10.9 Unspecified abdominal pain (principal); R74.01 Elevation of levels of liver transaminase levels
CPT/HCPCS: 74177; Q9967

== ENCOUNTER 2022-09-16 11:42 | Outpatient (AMB) | payer OTHER, SELFPAY ==
--- NOTE | 2022-09-16 12:05 | A.OFFVIS_ITS ---
Intake Vital Signs 09/16/22 12:07 Height 5 ft 9 in Weight 247 lb 9.266 oz BMI 36.6 BP 135/67 Blood Pressure Location Lt brachial Position Sitting Pulse 94 Intake Visit Reasons: 6 month follow up Intake Note: Eder presents in office as a est.patient for a 6month f/u for Cholelithiasis PT CC: pt reports having no concerns pt denies any other GI Issues Acds Block 1 Operator Required: No Accompanied by: Self / Same As Patient Allergies No Known Allergies Allergy (Verified 09/16/22 12:06) HPI 6 month follow up HPI Details LAST VISIT: Elevated liver enzymes Elevated liver enzymes due to CBD obstruction with 8 mm stone. Status post ERCP. Patient's liver enzymes normalized. Will repeat enzymes today. Patient opted not to go for surgery. He had no pancreatitis during that episode. Cholelithiasis without cholecystitis. Cholelithiasis Discussed with patient that if he has symptoms of the abdominal pain and if his enzymes will continue be elevated he needs to have his gallbladder removed to prevent pancreatitis. Patient had no pancreatitis during admission. No pancreatic insufficiency found. Will repeat liver enzymes and lipase today. I will see patient in 6 months, sooner on as needed basis. Patient is agreeable to this plan and verbalizes understanding of instructions. He was given the opportunity to ask questions and all questions answered. ? Thank you for allowing me to participate in his care Plan Orders Orders Liver Panel Today R10.9 Lipase Today R10.9 TODAY'S VISIT Patient is here today for follow-up. He reports that he has been feeling well, denies any abdominal pain or discomfort. Patient is moving his bowels without a ny issues. Occasional acid reflux depending on the food that he eats. Patient denies dyspepsia, dysphagia or odynophagia. Denies melena, hematochezia, unintentional weight loss or ribbon like stools. Patient denies any GI concerning symptoms today [facility] Medical History Afib Anemia Calculus of common bile duct with obstruction Cholelithiasis Chronic GERD COVID-19 vaccine series completed GERD (gastroesophageal reflux disease) History of COVID-19 HTN (hypertension) Hyperlipidemia PAF (paroxysmal atrial fibrillation) Surgical History Hx of appendectomy Hx of colonoscopy Family History Mother HTN (hypertension) Father Stroke Social History Household Members: Spouse Housing: House Do you presently have visiting nurse or other home services: No Alcohol intake: never Patient Tobacco Use Status: Never used Tobacco e-Cigarette/Vaping Use: Never Used Second Hand Smoke Exposure: No service: No Current occupational status: employed Cognitive needs: No Hearing needs: No Vision needs: No Review of Systems Const Denies weight gain and Denies weight loss ENT Reports no additional complaints, Denies dysphagia and Denies odynophagia Card Reports no additional complaints Resp Reports no additional complaints GI Denies abdominal pain, Denies belching, Denies melena, Denies bloating, Denies change in bowel habits, Denies dysphagia, Denies excessive flatus, Denies dyspepsia, Denies heartburn, Denies diarrhea, Denies loose stools, Denies nausea, Denies odynophagia and Denies vomiting Reports no additional complaints Musc Reports no additional complaints Neuro Reports no additional complaints Psych Reports no additional complaints Endo Reports no additional complaints Physical Exam Vital Signs: Last Vital Signs Pulse 94 09/16/22 12:07 BP 135/67 09/16/22 12:07 BMI result Body Mass Index 36.6 Const General: healthy appearing, no acute distress and well developed Nutritional Appearance: obese Orientation/consciousness: patient oriented x3 HEENT Head: Yes normal to inspection, Yes normocephalic and Yes atraumatic Face and sinus: Yes normal facial exam Mouth: Normal oral and palatal mucosa present Throat: Yes posterior oropharynx normal, Yes tonsils normal and Yes uvula midline Eyes General: appearance normal, both eyes and all related structures Neck Neck: Yes normal visual inspection, Yes full ROM and Yes trachea midline Thyroid: Thyroid normal Resp Effort & Inspection: normal respiratory effort, able to speak in complete sentences, no tracheal deviation and symmetric chest movement Auscultation: clear to auscultation bilaterally Cardio Rate: regular rate Heart sounds: S1 normal heart sound present and S2 normal heart sound present GI Inspection: Yes normal to inspection, No distended and Yes obesity Palpation (GI): Soft to palpation, not firm, nontender and No hepatosplenomegaly present Auscultation: normal bowel sounds General: Yes no CVA tenderness Back/Spine/Pelvis Back: no CVA tenderness Skin General skin exam: elasticity normal, turgor normal and dry skin Neuro General: patient oriented x3 Psych Appearance: grossly normal Mental Status: mental status grossly normal Speech and movement: Normal speech and movement present Affect: normal affect Assessment & Plan Assessment & Plan (1) Elevated liver enzymes: Code(s): R74.8 - Abnormal levels of other serum enzymes Plan: Patient's liver enzymes normalize we will repeat liver panel today. Patient denies any abdominal pain or discomfort. (2) Cholelithiasis: Code(s): K80.20 - Calculus of gallbladder without cholecystitis without obstruction Qualifiers: Biliary obstruction: with biliary obstruction Cholecystitis presence: without cholecystitis Cholelithiasis location: gallbladder and bile duct Qualified Code(s): K80.71 - Calculus of gallbladder and bile duct without cholecystitis with obstruction Plan: Status post ERCP for CBD stone. Cholelithiasis without cholecystitis. Patient reports that he has been feeling well denies any abdominal pain or discomfort. Benign exam. Patient will follow-up in 6 months, sooner on as needed basis. Patient is agreeable to this plan and verbalizes understanding of instructions. He was given the opportunity to ask questions and all questions answered. Thank you for allowing me to participate in his care Orders: Orders Liver Panel 09/16/22 R10.9 - Unspecified abdominal pain Coding Level of Care Code Est Pt Level 3 (01198) Diagnoses Elevated liver enzymes R74.8 Cholelithiasis K80.71 Biliary obstruction: with biliary obstruction Cholecystitis presence: without cholecystitis Cholelithiasis location: gallbladder and bile duct Time Spent (min) 25 Comment 15 minutes spent with patient and additional 10 minutes spent reviewing his records
[2022-09-16 12:07] VITALS: BP 135/67; PULSE 94; BMI 36.6
== END 2022-09-16 12:28 | disposition home or self-care (01) ==
PROVIDERS: PCP Hospitalist; Visit Provider Nurse Practitioner Family
DX: R74.8 Abnormal levels of other serum enzymes (principal); K80.71 Calculus of gallbladder and bile duct without cholecystitis with obstruction
CPT/HCPCS: 99213

== ENCOUNTER 2022-09-16 11:42 | Outpatient (REF) | payer OTHER, SELFPAY ==
[2022-09-16 13:17] LABS: Alanine Aminotransferase 19 U/L (0-40); Alkaline Phosphatase 100 U/L (39-117); Aspartate Amino Transferase 23 U/L (5-37); Bilirubin Direct 0.2 mg/dL (0.0-0.5); Total Protein 7.5 g/dL (6.5-8.0)
== END 2022-09-16 11:43 | disposition home or self-care (01) ==
LOC: HO.LAB 11:42
PROVIDERS: PCP Hospitalist; Visit Provider Nurse Practitioner Family
DX: R10.9 Unspecified abdominal pain (principal); R74.8 Abnormal levels of other serum enzymes; K80.71 Calculus of gallbladder and bile duct without cholecystitis with obstruction
CPT/HCPCS: 36415; 80076; 99212

== ENCOUNTER 2022-12-24 14:43 | Outpatient (REF) | payer OTHER, SELFPAY ==
--- NOTE | ~2022-12-24 | XR_ITS ---
EXAMINATION: XR ABDOMEN KUB CLINICAL INDICATION: Constipation COMPARISON: CT abdomen pelvis 03/17/2022 TECHNIQUE: AP view of the abdomen. FINDINGS: The bowel gas pattern is normal with no evidence of ileus or obstruction. There is a 1.8 cm rim calcified left renal artery aneurysm which may even be thrombosed. No other unusual soft tissue calcifications are noted. The bones are unremarkable aside from mild degenerative changes in the spine. XR/XR KUB IMPRESSION: 1. No evidence of bowel obstruction. 2. Left renal artery aneurysm.
[2022-12-24 15:32] LABS: Alanine Aminotransferase 23 U/L (0-40); Albumin Level 4.3 g/dL (3.5-5.0); Alkaline Phosphatase 105 U/L (39-117); Anion Gap 15 (12-20); Aspartate Amino Transferase 23 U/L (5-37); Bilirubin Direct 0.5 mg/dL (0.0-0.5); Bilirubin Total 1.5 mg/dL (0.0-1.0); Blood Urea Nitrogen 13 mg/dL (9-16); Calcium 10.3 mg/dL (8.4-10.2); Carbon Dioxide 25 mmol/L (22-29); Chloride 98 mmol/L (96-108); Estimated Glomerular Filt Rate > 60; Gamma Glutamyl Transpeptidase 53 U/L (11-51); Glucose Random 136 mg/dL (60-115); Lipase 208 U/L (8-78); Potassium 4.4 mmol/L (3.3-5.1); Sodium 134 mmol/L (135-145); Total Protein 8.3 g/dL (6.5-8.0)
== END 2022-12-24 14:44 | disposition home or self-care (01) ==
LOC: HO.LAB 14:43
PROVIDERS: Visit Provider Nurse Practitioner Family
DX: R10.9 Unspecified abdominal pain (principal); R74.8 Abnormal levels of other serum enzymes; K59.00 Constipation, unspecified
CPT/HCPCS: 36415; 74018; 80048; 80076; 82977; 83690

== ENCOUNTER 2022-12-26 09:41 | Outpatient (AMB) | payer OTHER, SELFPAY ==
--- NOTE | 2022-12-26 09:49 | A.OFFVIS_ITS ---
Intake Vital Signs 12/26/22 09:57 Height 5 ft 9 in Weight 237 lb BMI 35.0 BP 113/67 Blood Pressure Location Lt brachial Position Sitting Pulse 75 Intake Visit Reasons: Lab results Intake Note: Patient follow up for lab results Patient cc: diarrhea and some abdominal pain on ad off. Denies any other GI issues. Silver Buffer Required: No Accompanied by: Self / Same As Patient Allergies No Known Allergies Allergy (Verified 12/26/22 09:48) HPI Lab results HPI Details LAST VISIT: Elevated liver enzymes Patient's liver enzymes normalize we will repeat liver panel today. Patient denies any abdominal pain or discomfort. Cholelithiasis Status post ERCP for CBD stone. Cholelithiasis without cholecystitis. Patient reports that he has been feeling well denies any abdominal pain or discomfort. Benign exam. Patient will follow-up in 6 months, sooner on as needed basis. Patient is agreeable to this plan and verbalizes understanding of instructions. He was given the opportunity to ask questions and all questions answered. TODAY'S VISIT Patient is here today for requested visit. Patient call the office a few days ago and reported right upper and left upper quadrant discomfort. Patient reports pain sharp, similar to pain that he had when he was found to have a bile duct stone. Patient was sent for KUB and lab work. Patient was found to have elevated lipase and mildly elevated GGT . Patient had normal liver enzymes. He reported that he has not been able to move his bowels when I spoke to him 3 days ago on the phone. Today patient reports that the pain has gone away since yesterday. However still feels tenderness when he presses in the right upper quadrant. Patient denies any nausea or vomiting. Reports to be moving his bowels better now that he has been taking Colace and Dulcolax. Patient denies dyspepsia, dysphagia or odynophagia. Patient reports that he started having the pain was after he ate smoked chicken. ? [facility] Medical History Afib Anemia Calculus of common bile duct with obstruction Cholelithiasis Chronic GERD COVID-19 vaccine series completed GERD (gastroesophageal reflux disease) History of COVID-19 HTN (hypertension) Hyperlipidemia PAF (paroxysmal atrial fibrillation) Surgical History Hx of colonoscopy Hx of appendectomy Family History Mother HTN (hypertension) Father Stroke Social History Household Members: Spouse Housing: House Do you presently have visiting nurse or other home services: No Alcohol intake: never Patient Tobacco Use Status: Never used Tobacco e-Cigarette/Vaping Use: Never Used Second Hand Smoke Exposure: No service: No Current occupational status: employed Cognitive needs: No Hearing needs: No Vision needs: No Review of Systems Const Denies weight gain and Denies weight loss ENT Reports no additional complaints, Denies dysphagia and Denies odynophagia Card Reports no additional complaints Resp Reports no additional complaints GI Reports abdominal pain (RUQ, LUQ), Denies belching, Denies melena, Denies bloating, Denies change in bowel habits, Denies dysphagia, Denies excessive fla tus, Denies dyspepsia, Denies heartburn, Denies diarrhea, Denies loose stools, Denies nausea, Denies odynophagia and Denies vomiting Reports no additional complaints Musc Reports no additional complaints Neuro Reports no additional complaints Psych Reports no additional complaints Endo Reports no additional complaints Physical Exam Vital Signs: Last Vital Signs Pulse 75 12/26/22 09:57 BP 113/67 12/26/22 09:57 BMI result Body Mass Index 35.0 Const General: healthy appearing, no acute distress and well developed Nutritional Appearance: obese Orientation/consciousness: patient oriented x3 HEENT Head: Yes normal to inspection, Yes normocephalic and Yes atraumatic Face and sinus: Yes normal facial exam Mouth: Normal oral and palatal mucosa present Throat: Yes posterior oropharynx normal, Yes tonsils normal and Yes uvula midline Eyes General: appearance normal, both eyes and all related structures Neck Neck: Yes normal visual inspection, Yes full ROM and Yes trachea midline Thyroid: Thyroid normal Resp Effort & Inspection: normal respiratory effort, able to speak in complete sentences, no tracheal deviation and symmetric chest movement Auscultation: clear to auscultation bilaterally Cardio Rate: regular rate Heart sounds: S1 normal heart sound present and S2 normal heart sound present GI Inspection: Yes normal to inspection, No distended and Yes obesity Palpation (GI): Soft to palpation, not firm, Tenderness to palpation present (GI) in the RUQ and No hepatosplenomegaly present Auscultation: normal bowel sounds General: Yes no CVA tenderness Back/Spine/Pelvis Back: no CVA tenderness Skin General skin exam: elasticity normal, turgor normal and dry skin Neuro General: patient oriented x3 Psych Appearance: grossly normal Mental Status: mental status grossly normal Affect: normal affect Results Reviewed Results Reviewed: KUB 12/24/2022 FINDINGS: The bowel gas pattern is normal with no evidence of ileus or obstruction. There is a 1.8 cm rim calcified left renal artery aneurysm which may even be thrombosed. No other unusual soft tissue calcifications are noted. The bones are unremarkable aside from mild degenerative changes in the spine. XR/XR KUB IMPRESSION: 1. No evidence of bowel obstruction. 2. Left renal artery aneurysm. Laboratory Tests 12/24/22 14:55 Random Glucose 136 H Total Bilirubin 1.5 H Direct Bilirubin 0.5 GGT 53 H AST 23 ALT 23 Alkaline Phosphatase 105 Lipase 208 H Assessment & Plan Assessment & Plan (1) RUQ abdominal pain: Code(s): R10.11 - Right upper quadrant pain (2) Pancreatitis: Code(s): K85.90 - Acute pancreatitis without necrosis or infection, unspecified Qualifiers: Pancreatitis type: unspecified pancreatitis type Chronicity: acute Acute pancreatitis complication: no infection or necrosis Qualified Code(s): K85.90 - Acute pancreatitis without necrosis or infection, unspecified (3) Constipation: Code(s): K59.00 - Constipation, unspecified Qualifiers: Constipation type: slow transit constipation Qualified Code(s): K59.01 - Slow transit constipation Plan Patient reports no pain time mildly tender right upper quadrant. Will send patient for ultrasound to rule out cholelithiasis, cholecystitis Lipase elevated 3 days ago will recheck today. Patient could have common bile duct blockage again, however given his symptoms improved most likely idiopathic. Will recheck liver profile. Patient will call the office if he will experience abdominal pain, fever, nausea. He was instructed to go to emergency room if his pain increases. Patient was admitted last year for similar pain was found to have cholelithiasis without cholecystitis. MRCP showed blocked CBD and ERCP was performed. If patient will continue with this pain he might need to be referred to surgery for cholecystectomy. Patient was encouraged to avoid food high in fat. Diet choices discussed with patient. List of recommendations as well as list of food to avoid given to patient. Orders: Orders Hemoglobin A1c Today E11.9 - Type 2 diabetes mellitus without complications Lipase Today R10.9 - Unspecified abdominal pain Liver Panel Today R10.9 - Unspecified abdominal pain Gamma Glutamyl Transpeptidase Today R74.8 - Abnormal levels of other serum enzymes US abdomen complete Today R10.9 - Unspecified abdominal pain Coding Level of Care Code Est Pt Level 4 (41987) Diagnoses RUQ abdominal pain R10.11 Acute pancreatitis without infection or necrosis, unspecified pancreatitis type K85.90 Pancreatitis type: unspecified pancreatitis type Chronicity: acute Acute pancreatitis complication: no infection or necrosis Slow transit constipation K59.01 Constipation type: slow transit constipation Time Spent (min) 35 Comment 20 minutes spent with patient and additional 15 minutes spent reviewing his records
[2022-12-26 09:57] VITALS: BP 113/67; PULSE 75; BMI 35.0
== END 2022-12-26 10:39 | disposition home or self-care (01) ==
PROVIDERS: PCP Hospitalist; Visit Provider Nurse Practitioner Family
DX: R10.11 Right upper quadrant pain (principal); K85.90 Acute pancreatitis without necrosis or infection, unspecified; K59.01 Slow transit constipation
CPT/HCPCS: 99214

== ENCOUNTER 2022-12-26 09:41 | Outpatient (REF) | payer OTHER, SELFPAY ==
[2022-12-26 11:25] LABS: Estimated Average Glucose 105 mg/dL; Hemoglobin A1c % 5.3 % (<6.0)
[2022-12-26 11:42] LABS: Alanine Aminotransferase 25 U/L (0-40); Albumin Level 4.1 g/dL (3.5-5.0); Alkaline Phosphatase 102 U/L (39-117); Aspartate Amino Transferase 21 U/L (5-37); Bilirubin Direct 0.4 mg/dL (0.0-0.5); Bilirubin Total 1.3 mg/dL (0.0-1.0); Gamma Glutamyl Transpeptidase 38 U/L (11-51); Lipase 16 U/L (8-78); Total Protein 8.2 g/dL (6.5-8.0)
== END 2022-12-26 09:42 | disposition home or self-care (01) ==
LOC: HO.LAB 09:41
PROVIDERS: PCP Hospitalist; Visit Provider Nurse Practitioner Family
DX: R10.11 Right upper quadrant pain (principal); K85.90 Acute pancreatitis without necrosis or infection, unspecified; K59.01 Slow transit constipation; E11.9 Type 2 diabetes mellitus without complications
CPT/HCPCS: 36415; 80076; 82977; 83036; 83690; 99212

== ENCOUNTER 2022-12-29 08:18 | Outpatient (AMB) | payer OTHER, SELFPAY ==
[2022-12-29 08:23] VITALS: BP 128/64; PULSE 88; RESP 13; TEMP 37.1; O2SAT 98; BMI 36.3
--- NOTE | 2022-12-29 08:23 | MHC.PC.OV ---
Vital Signs 12/29/22 08:23 Height 5 ft 9 in Weight 246 lb BMI 36.3 BP 128/64 Blood Pressure Location Lt brachial Position Sitting Respiration 13 Pulse 88 Pulse Source Pulse Oximeter Temp 98.8 F Temp Source Oral Pulse Oximetry (%) 98 Oxygen Delivery Method Room Air Intake Visit Reasons: PE, htn and anemia Intake Note: Patient is here today for a physical and he is requesting a referral to an eye doctor. Patient reports he has had 2 episodes of feeling off balance after standing from sitting. Patient last had a CPE on 04/17/21 with [facility] and his last labs were completed on 12/24/22 and 12/26/22. Manager Operations Required: No Accompanied by: Self / Same As Patient Allergies No Known Allergies Allergy (Verified 12/29/22 08:46) Medication List - Last Reconciled 12/29/22 by Loly Colvin CNP amlodipine 10 mg PO DAILY bisacodyl (Dulcolax (bisacodyl)) 10 mg (2 x 5 mg) PO BEDTIME docusate sodium 100 mg PO DAILY metoprolol tartrate 50 mg PO BID polyethylene glycol 3350 (Miralax) 17 grams PO DAILY rivaroxaban (Xarelto) 20 mg PO QPM Tobacco use date assessed: 12/29/22 Fall risk assessment: No Falls in past year Last assessed Fall Risk: 12/29/22 Dental Screening Dental Screen Date: 12/29/22 Did you have a dental visit in the last 12 months?: Yes Did you have a dental problem in the last 6 months where you did not have access to dental care?: No Was dental information given to patient?: Patient has dentist HPI HPI Comments History of Present Illness Details 67-year-old male presents for transfer of care and for hypertension, anemia, and a complete physical exam follow-up. His former PCP was LORI who is no longer with the practice. His last office visit was on 02/13/2022. He is followed by [facility] and recently had CMP done with normal findings. His last CBC was almost a year ago. He has not had lipid panel and TSH levels checked in a while. He has past medical history of hypertension, hyperlipidemia, anemia, AFib, GERD, cholelithiasis, and calculus of the common bile duct. He admits to taking his medications as prescribed. He offers no complaints and denies acute symptoms. He notes that his last eye exam was in April 2022: Normal. However, his vision has been deteriorating. He request a referral to Ophthalmology. He reports two recent episodes of dizziness upon standing up very quickly. He is followed by Dr. Pagan, cardiology. He is also followed by [facility]. He notes he has had the pneumonia vaccines. His last colonoscopy was with [facility] on 12/02/2021: Colonoscopy Findings: Two small polyps removed Moderate diverticulosis seen in the entire colon Moderate hemorrhoids on retroflexed exam. No source found for anemia - advised further evaluation with iron studies and stool for occult blood. Capsule Endoscopy if stool occult blood is positive Plan: Await pathology results Patient has an appointment on 12/17/21 in the GI Clinic with Soraya Sow FNP-BC. Repeat Colonoscopy interval based on path results - in 5 years if polyps are adenomatous and 10 years if polyps are hyperplastic. (Needs adult colonoscope for future colonoscopies) FORMERLY [facility], [facility]–1983 Medical History Afib Anemia Calculus of common bile duct with obstruction Cholelithiasis Chronic GERD COVID-19 vaccine series completed GERD (gastroesophageal reflux disease) History of COVID-19 HTN (hypertension) Hyperlipidemia PAF (paroxysmal atrial fibrillation) Surgical History Hx of colonoscopy Hx of appendectomy Family History Mother HTN (hypertension) Father Stroke Social History Household Members: Spouse Housing: House Do you presently have visiting nurse or other home services: No Alcohol intake: never Patient Tobacco Use Status: Never used Tobacco e-Cigarette/Vaping Use: Never Used Second Hand Smoke Exposure: No service: No Current occupational status: employed Cognitive needs: No Hearing needs: No Vision needs: No Questionnaire PHQ-9 Over the last 2 weeks, how often have you been bothered by any of the following problems? 1. Little interest or pleasure in doing things: not at all 2. Feeling down, depressed, or hopeless: not at all 3. Trouble falling or staying asleep, or sleeping too much: not at all 4. Feeling tired or having little energy: not at all 5. Poor appetite or overeating: not at all 6. Feeling bad about yourself - or that you are a failure or have let yourself or your family down: not at all 7. Trouble concentrating on things, such as reading the newspaper or watching television: not at all 8. Moving or speaking so slowly that other people could have noticed. Or the opposite - being so fidgety or restless that you have been moving around a lot more than usual: not at all 9. Thoughts that you would be better off or of hurting yourself in some way: not at all Total score: 0 Depression Screening Interpretation: Negative Depression Screening Done: Yes 18043 - PHQ-9 Billing: Yes Source: Developed by Drs. Jose M Kelly, Earlene Crum, Eliazar Caban and colleagues, with an educational patrick from [employer] Thrive Questionnaire Date Thrive assessed: 12/29/22 I am a: Patient What is your living situation today?: I have a steady place to live Within the past 12 months, did the food you bought not last and you didn't have the money to get more?: Never true Within the past 12 months, did you worry whether your food would run out before you got money to buy more?: Never true Do you have trouble paying for medicines?: No Do you have trouble getting transportation to medical appointments?: No Do you have trouble paying your heating and electricity bill?: No Do you have trouble taking care of your child, family member or friend?: No Do you have trouble with day-to-day activities such as bathing, preparing meals, shopping, managing finances, etc.?: No Are you currently unemployed and looking for a job?: No Are you interested in more education?: No Please select the resources that you would like help with: None Currently or been in a relationship where the following occur: no concerns reported AUDIT C Alcohol Use Questionnaire (AUDIT-C) 1. How often do you have a drink containing alcohol?: Never 3. How often do you have six or more drinks on one occasion?: Never Total Score: 0 Score Reviewed/Action Taken: No ILANA-7 AMB Questionnaire ILANA-7 Date ILANA - 7 assessed: 12/29/22 Feeling nervous, anxious, or on edge: 0 = Not at all Not being able to stop or control worryin = Not at all Worrying too much about different things: 0 = Not at all Trouble relaxin = Not at all Being so restless that it is hard to sit still: 0 = Not at all Becoming easily annoyed or irritable: 0 = Not at all Feeling afraid as if something awful might happen: 0 = Not at all Total ILANA-7 score (0-4 normal; 5-9 mild; 10-14 moderate; 15-21 severe): 0 Source: Developed by Drs. Jose M Kelly, Earlene Crum, Eliazar Caban and colleagues, with an educational patrick from [employer]. ILANA-7 Assessment Billing ILANA-7 Assessment Tool: ILANA-7 Assessment 18636 Review of Systems Const Details: Denies chills, Denies fatigue, Denies fever(s), Denies headache(s) and Denies weakness HEENT Denies change in vision, Denies dizziness, Denies headache(s), Denies hearing loss, Denies nasal congestion, Denies sinus pain, Denies sinus pressure and Denies sore throat Card Denies chest pain, Denies lightheadedness, Denies dyspnea and Denies other (palpitations) Resp Denies cough, Denies dyspnea and Denies wheezing GI Denies abdominal pain, Denies melena, Denies hematochezia, Denies change in bowel habits, Denies dyspepsia and Denies nausea Denies hematuria and Denies dysuria Musc Denies abnormal gait, Denies myalgias, Denies arthralgias, Denies numbness and Denies tingling Skin/Breast Denies rash, Denies unusual bruising and Denies wounds Neuro Denies abnormal gait, Denies dizziness, Denies headache(s), Denies memory loss, Denies numbness, Denies Sensory deficit (Neuro), Denies tingling and Denies weakness Psych Denies anxiety, Denies depression and Denies memory loss Endo Denies cold intolerance, Denies fatigue, Denies heat intolerance, Denies polydipsia and Denies polyuria Dominic/Lymph Denies easy bleeding and Denies easy bruising Aller/Immun Denies wheezing Physical exam (Primary Care) Vital Signs: Last Vital Signs Temp 98.8 F 12/29/22 08:23 Pulse 88 12/29/22 08:23 Resp 13 12/29/22 08:23 BP 128/64 12/29/22 08:23 Pulse Ox 98 12/29/22 08:23 Oxygen Delivery Method Room Air 12/29/22 08:23 BMI result Body Mass Index 36.3 Tobacco/Smoking Status: Tobacco use Status Tobacco use date assessed 12/29/22 12/29/22 08:34 Patient Tobacco Use Status Never used Tobacco 12/29/22 08:23 e-Cigarette/Vaping Use Never Used 12/29/22 08:23 Depression Screening Interpretation: Negative Thrive Assessment: Date of Thrive Assessment Date Thrive assessed 02/13/22 12/29/22 08:23 Currently or been in a relationship where the following occur: no concerns reported Const Other: General: no acute distress, well developed, alert and awake Nutritional Appearance: well nourished Orientation/consciousness: patient oriented x3 HENMT Head: Yes normocephalic and Yes atraumatic Ears: hearing grossly normal bilaterally and TM's normal bilaterally General nose exam: Normal external nose present and Normal nares present Mouth: Normal oral and palatal mucosa present and moist mucous membranes Teeth and gingiva: dentition normal Throat: Yes oropharynx normal Eyes Pupils: Equal, round and reactive pupils present and Pupil accommodation reflex normal EOM: EOMs intact bilaterally Neck Neck: Yes normal visual inspection, Yes no lymphadenopathy and Yes trachea midline Thyroid: Thyroid normal Carotids: no bruits Lymphatic: no lymphadenopathy noted Chest Chest palpation & inspection: normal inspection of the chest Resp Effort & Inspection: normal respiratory effort Auscultation: clear to auscultation bilaterally Cardio Rate: regular rate Rhythm: irregular rhythm Heart sounds: S1 normal heart sound present, S2 normal heart sound present, no gallops, no murmurs and no rubs Bruits: no abdominal aortic bruits and no carotid bruits GI Palpation (GI): No Abdominal aortic bruit present, Soft to palpation, nontender, No hepatosplenomegaly present and No Rebound tenderness present Auscultation: normal bowel sounds General: Yes no CVA tenderness Back/Spine/Pelvis Back: no CVA tenderness Cervical Spine: cervical ROM normal and No Cervical spine tenderness Thoracic/Lumbar Spine: thoraco-lumbar ROM normal, No pain with thoraco-lumbar ROM, No thoracic spinal tenderness and No lumbar spinal tenderness Skin General: warm and dry. Normal skin color. Normal skin turgor Lesions: no lesions Rashes: no rashes Trauma: no lacerations or abrasions Wounds: no wounds Nails: normal Neuro General: patient oriented x3, gait normal and CN's II-XI intact bilaterally Cranial nerves: Yes Equal, round and reactive pupils present Cognition (Neuro): normal cognition Gait exam (Neuro): Normal gait present Motor exam (neuro): 5/5 motor strength present throughout Sensory Exam: No Sensory deficit (Neuro) Deep tendon reflexes (DTR's): Right patellar reflex intensity grade: 2+ and Left patellar reflex intensity grade: 2+ Extrem General: Yes normal to inspection, No edema and No calf tenderness Psych Appearance: grossly normal Affect: normal affect Attitude: cooperative Thought process: Normal thought process present Assessment and Plan Assessment & Plan (1) Normal physical examination, routine: Code(s): Z00.00 - Encounter for general adult medical examination without abnormal findings Plan: No significant physical restrictions or limitations noted Advised to get blood work done before his next visit Follow-up in 3 months or return sooner with symptoms or concerns Verbalized understanding and agreed with treatment plan. (2) Anemia: Code(s): D64.9 - Anemia, unspecified Plan: No acute symptoms Will check CBC and make changes to his care plan if warranted Verbalized understanding and agreed with treatment plan. (3) HTN (hypertension): Code(s): I10 - Essential (primary) hypertension Plan: Blood pressure is controlled, 124/64, below goal of less than 130/80 Continue current treatment regimen Low-sodium diet encouraged Follow-up in 3 months or return sooner with symptoms or concerns Verbalized understanding and agreed with treatment plan. (4) Hyperlipidemia: Code(s): E78.5 - Hyperlipidemia, unspecified Plan: History of hyperlipidemia He has not had lipid panel checked in a while Will check lipid panel. Advised to fast for 10-12 hours before getting blood work done. Will review results and make changes to his care plan if warranted Advised to limit foods high in saturated fat and avoid foods high trans fat Routine exercise encouraged Verbalized understanding and agreed with treatment plan. (5) PAF (paroxysmal atrial fibrillation): Comment: cardiology follows Code(s): I48.0 - Paroxysmal atrial fibrillation Plan: Heart rate is regular, rhythm is regular Xarelto as prescribed Continue to follow up with Dr. Pagan, field radio technician as planned Return with symptoms or concerns Verbalized understanding and agreed with treatment plan. (6) Poor eyesight: Code(s): H54.7 - Unspecified visual loss Plan: He notes that his last eye exam was in April 2022: Normal. However, his vision has been deteriorating. He request a referral to Ophthalmology. Referred to Ophthalmology Return with worsening or new symptoms Verbalized understanding and agreed with treatment plan. (7) Orthostatic hypertension: Code(s): I10 - Essential (primary) hypertension Plan: He reports two recent episodes of dizziness upon standing up very quickly No acute symptoms at this time Likely orthostatic hypotension Advised to change positions slowly from lying to sitting and standing Follow-up with worsening or new symptoms Verbalized understanding and agreed with treatment plan. (8) Laboratory tests ordered as part of a complete physical exam (CPE): Code(s): Z00.00 - Encounter for general adult medical examination without abnormal findings Plan: Fasting labs ordered as part of a complete physical exam. Advised to fast for at least 10 hours before getting labs drawn. May drink water Verbalized understanding and agreed with treatment plan. Orders: Orders TSH reflex Free T4 Today Z00.00 - Encounter for general adult medical examination without abnormal findings Complete Blood Count Auto Diff Today Z00.00 - Encounter for general adult medical examination without abnormal findings Lipid Panel Today Z00.00 - Encounter for general adult medical examination without abnormal findings PSA, Ultra Sensitive Today Z00.00 - Encounter for general adult medical examination without abnormal findings Glucose Fasting Today Z00.00 - Encounter for general adult medical examination without abnormal findings Referrals Ophthalmology Referral H54.7 - Unspecified visual loss Coding Level of Care Code Est Pt Prev Care >65y(74174) Diagnoses Normal physical examination, routine Z00.00 Anemia D64.9 HTN (hypertension) I10 Hyperlipidemia E78.5 PAF (paroxysmal atrial fibrillation) I48.0 Poor eyesight H54.7 Orthostatic hypertension I10 Laboratory tests ordered as part of a complete physical exam (CPE) Z00.00 Additional Codes ILANA-7 Assessment Billing - ILANA-7 Assessment Tool: ILANA-7 Assessment 75796 ([id number])
== END 2022-12-29 09:10 | disposition home or self-care (01) ==
PROVIDERS: PCP Hospitalist; Visit Provider Nurse Practitioner Family
DX: Z00.00 Encounter for general adult medical examination without abnormal findings (principal); I48.0 Paroxysmal atrial fibrillation; D64.9 Anemia, unspecified; I10 Essential (primary) hypertension; E78.5 Hyperlipidemia, unspecified; H54.7 Unspecified visual loss
CPT/HCPCS: 99397

== ENCOUNTER 2022-12-29 09:15 | Outpatient (REF) | payer OTHER, SELFPAY ==
[2022-12-29 11:28] LABS: MANUAL DIFF FLAG NO
[2022-12-29 11:49] LABS: Basophils Percent Auto 0.6 % (0-2); Eosinophils Absolute Auto 0.1 X10*3/uL (0.0-0.4); Hematocrit 44.3 % (42.0-52.0); Hemoglobin 14.8 g/dl (14.0-18.0); Imm Gran Abs Auto 0.03 X10*3/uL (0.00-0.03); Imm Gran Pct Auto 0.4 % (0.0-0.4); Lymphocytes Absolute Auto 0.9 X10*3/uL (1.2-4.9); Lymphocytes Percent Auto 13.8 % (20-40); Mean Corpuscular HGB Conc 33.4 g/dl (31.0-36.0); Mean Corpuscular Hemoglobin 27.9 pg (27.0-33.0); Mean Corpuscular Volume 83.6 fL (80.0-98.0); Mean Platelet Volume 11.3 fL (9.4-12.4); Monocytes Absolute Auto 0.6 X10*3/uL (0.1-1.2); Monocytes Percent Auto 8.5 % (2-11); Neutrophils Absolute Auto 5.2 x10*3/uL (2.0-8.3); Neutrophils Percent Auto 75.7 % (45-73); Platelet Count 168 X10*3/uL (160-400); Red Cell Distribution Width 13.2 % (11.0-16.0); White Blood Count 6.8 X10*3/uL (4.8-10.8)
[2022-12-29 12:03] LABS: Cholesterol 188 mg/dL (<200); Glucose Fasting 117 mg/dL (60-99); HDL Cholesterol 33 mg/dL (>40); LDL Cholesterol Calculated 139 mg/dL (<100); Triglycerides 84 mg/dL (<150)
[2022-12-29 12:23] LABS: TSH reflex Free T4 1.33 uIU/mL (0.32-4.0)
[2023-01-05 19:49] LABS: PSA, Ultra Sensitive 0.56 ng/mL
== END 2022-12-29 09:16 | disposition home or self-care (01) ==
LOC: HO.WFDLDS 09:15
PROVIDERS: Visit Provider Nurse Practitioner Family
DX: Z00.00 Encounter for general adult medical examination without abnormal findings (principal); B83.9 Helminthiasis, unspecified; Z12.5 Encounter for screening for malignant neoplasm of prostate; E78.5 Hyperlipidemia, unspecified; Z79.899 Other long term (current) drug therapy
CPT/HCPCS: 36415; 80061; 82947; 84153; 84443; 85025

== ENCOUNTER 2023-01-26 08:47 | Outpatient (AMB) | payer OTHER, SELFPAY ==
--- NOTE | 2023-01-26 08:53 | MHC.PC.OV ---
Vital Signs 01/26/23 08:54 Height 5 ft 9 in Weight 243 lb BMI 35.9 BP 132/74 Blood Pressure Location Lt brachial Position Sitting Respiration 14 Pulse 62 Pulse Source Pulse Oximeter Pulse Oximetry (%) 97 Oxygen Delivery Method Room Air Intake Visit Reasons: labs review, fasting glucose Intake Note: Patient is here to follow up for labs and a fasting glucose. Patient reports he would like to change his Xarelto to a less expensive medication as he is being charged $150 per 30 day supply. Dairy Management Specialist Required: No Accompanied by: Self / Same As Patient Allergies No Known Allergies Allergy (Verified 01/26/23 09:12) Medication List - Last Reconciled 01/26/23 by Loly Colvin, ELIZABETH amlodipine 10 mg PO DAILY bisacodyl (Dulcolax (bisacodyl)) 10 mg (2 x 5 mg) PO BEDTIME docusate sodium 100 mg PO DAILY metoprolol tartrate 50 mg PO BID polyethylene glycol 3350 (Miralax) 17 grams PO DAILY rivaroxaban (Xarelto) 20 mg PO QPM Tobacco use date assessed: 12/29/22 HPI HPI Comments History of Present Illness Details 67-year-old male presents for review of recent lab review follow-up He had blood work done about a month ago. His fasting glucose was elevated, 117, LDL was elevated, 139, HDL was low, 33. He admits to taking his medications as prescribed with no adverse reaction He offers no complaints and denies acute symptoms at this time He notes that the his health plan does not cover the manager of compliance he was recently referred to. He notes that he his health plan is from [place] and does not cover most coverages in [facility]. He intends to change his health plan after the holidays. He notes that his vision has improved [facility] Medical History Afib Anemia Calculus of common bile duct with obstruction Cholelithiasis Chronic GERD COVID-19 vaccine series completed GERD (gastroesophageal reflux disease) History of COVID-19 HTN (hypertension) Hyperlipidemia PAF (paroxysmal atrial fibrillation) Surgical History Hx of colonoscopy Hx of appendectomy Family History Mother HTN (hypertension) Father Stroke Social History Household Members: Spouse Housing: House Do you presently have visiting nurse or other home services: No Alcohol intake: never Patient Tobacco Use Status: Never used Tobacco e-Cigarette/Vaping Use: Never Used Second Hand Smoke Exposure: No service: No Current occupational status: employed Cognitive needs: No Hearing needs: No Vision needs: No Questionnaire Thrive Questionnaire Date Thrive assessed: 12/29/22 ILANA-7 AMB Questionnaire ILANA-7 Date ILANA - 7 assessed: 12/29/22 Source: Developed by Drs. Jose M Kelly, Earlene Crum, Eliazar Caban and colleagues, with an educational patrick from [employer]. Review of Systems Const Details: Const Denies chills, Denies fatigue, Denies fever(s), Denies headache(s) and Denies weakness ENT Denies dizziness and Denies headache(s) Card Denies chest pain, Denies lightheadedness, Denies dyspnea and Denies other (Palpitations) Resp Denies cough, Denies dyspnea, Denies wheezing and Denies other ( shortness of breath) GI Denies abdominal pain, Denies melena, Denies hematochezia, Denies change in bowel habits, Denies dyspepsia and Denies nausea Denies hematuria and Denies dysuria Musc Denies abnormal gait, Denies myalgias, Denies arthralgias, Denies numbness and Denies tingling Skin/Breast Denies rash, Denies unusual bruising and Denies wounds Neuro Denies abnormal gait, Denies dizziness, Denies headache(s), Denies memory loss, Denies numbness, Denies Sensory deficit (Neuro), Denies tingling and Denies weakness Psych Denies anxiety, Denies depression, Denies memory loss Endo Denies cold intolerance, Denies fatigue, Denies heat intolerance, Denies polydipsia and Denies polyuria Aller/Immun Denies wheezing Physical exam (Primary Care) Vital Signs: Last Vital Signs Pulse 62 01/26/23 08:54 Resp 14 01/26/23 08:54 BP 132/74 01/26/23 08:54 Pulse Ox 97 01/26/23 08:54 Oxygen Delivery Method Room Air 01/26/23 08:54 BMI result Body Mass Index 35.9 Tobacco/Smoking Status: Tobacco use Status Tobacco use date assessed 12/29/22 01/26/23 08:58 Patient Tobacco Use Status Never used Tobacco 01/26/23 08:58 e-Cigarette/Vaping Use Never Used 01/26/23 08:58 Thrive Assessment: Date of Thrive Assessment Date Thrive assessed 12/29/22 01/26/23 08:58 Const Other: General: no acute distress and well developed Nutritional Appearance: well nourished Orientation/consciousness: patient oriented x3 HENMT Head: Yes normocephalic and Yes atraumatic Eyes General: appearance normal, both eyes and all related structures Pupils: Equal, round and reactive pupils present EOM: EOMs intact bilaterally Resp Effort & Inspection: normal respiratory effort Auscultation: clear to auscultation bilaterally Cardio Rate: regular rate Rhythm: irregular rhythm Heart sounds: S1 normal heart sound present, S2 normal heart sound present, no gallops, no murmurs and no rubs GI Palpation (GI): No Abdominal aortic bruit present, Soft to palpation, nontender, No hepatosplenomegaly present and No Rebound tenderness present Auscultation: normal bowel sounds General: Yes no CVA tenderness Back/Spine/Pelvis Back: no CVA tenderness Cervical Spine: cervical ROM normal and No Cervical spine tenderness Thoracic/Lumbar Spine: thoraco-lumbar ROM normal, No pain with thoraco-lumbar ROM, No thoracic spinal tenderness and No lumbar spinal tenderness Extrem General: Yes normal to inspection, No edema and No calf tenderness Skin General: warm and dry. Normal skin color. Normal skin turgor Neuro General: patient oriented x3, gait normal and no focal neuro deficit Cranial nerves: Yes Equal, round and reactive pupils present Cognition (Neuro): normal cognition Gait exam (Neuro): Normal gait present Sensory Exam: No Sensory deficit (Neuro) Psych Appearance: grossly normal Affect: normal affect Attitude: cooperative Thought process: Normal thought process present Assessment and Plan Assessment & Plan (1) HTN (hypertension): Code(s): I10 - Essential (primary) hypertension Plan: Resting blood pressure is 132/70, slightly above goal of less than 130/80 Continue with current treatment regimen Low-sodium diet encouraged Follow-up in 6 weeks or return sooner with symptoms or concerns Verbalized understanding and agreed with treatment plan. (2) Hyperlipidemia: Code(s): E78.5 - Hyperlipidemia, unspecified Plan: Recent lab results reviewed with the patient LDL is elevated, 139, above goal of less than 70. HDL is low, 33 His 10 year risk of ASCVD is 21.2% Atorvastatin ordered. Take as prescribed Advised to limit foods high in saturated fat and avoid foods high in trans fat Routine exercise encouraged Will recheck lipid panel in 6 weeks. Encouraged to fast for 10-12 hours, may drink water only, and get blood work done before next visit Follow-up in 6 weeks Verbalized understanding and agreed with treatment plan. (3) Elevated fasting glucose: Code(s): R73.01 - Impaired fasting glucose Plan: Recent fasting glucose is elevated, 117 Will recheck fasting glucose and make changes as needed He will get blood work done today (4) PAF (paroxysmal atrial fibrillation): Comment: cardiology follows Code(s): I48.0 - Paroxysmal atrial fibrillation Plan: Heart rate irregular Continue to take the oral to as prescribed He will follow-up with Dr. Pagan, cardiology to request switching Xarelto to a less expensive anticoagulant Follow-up as needed Verbalized understanding and agreed with treatment plan. Orders: Orders Lipid Panel 6 Weeks E78.5 - Hyperlipidemia, unspecified Medications: New atorvastatin 10 mg PO BEDTIME 30 tabs 3RF 30 days Coding Level of Care Code Est Pt Level 4 (92506) Diagnoses HTN (hypertension) I10 Hyperlipidemia E78.5 Elevated fasting glucose R73.01 PAF (paroxysmal atrial fibrillation) I48.0
[2023-01-26 08:54] VITALS: BP 132/74; PULSE 62; RESP 14; O2SAT 97; BMI 35.9
== END 2023-01-26 09:32 | disposition home or self-care (01) ==
PROVIDERS: PCP Hospitalist; Visit Provider Nurse Practitioner Family
DX: I10 Essential (primary) hypertension (principal); E78.5 Hyperlipidemia, unspecified; R73.01 Impaired fasting glucose; I48.0 Paroxysmal atrial fibrillation
CPT/HCPCS: 99214

== ENCOUNTER 2023-01-26 09:39 | Outpatient (REF) | payer OTHER, SELFPAY ==
[2023-01-26 12:27] LABS: Cholesterol 230 mg/dL (<200); Glucose Fasting 113 mg/dL (60-99); HDL Cholesterol 48 mg/dL (>40); LDL Cholesterol Calculated 166 mg/dL (<100); Triglycerides 80 mg/dL (<150)
== END 2023-01-26 09:40 | disposition home or self-care (01) ==
LOC: HO.WFDLDS 09:39
PROVIDERS: Visit Provider Nurse Practitioner Family
DX: R73.01 Impaired fasting glucose (principal); E78.5 Hyperlipidemia, unspecified
CPT/HCPCS: 36415; 80061; 82947

== ENCOUNTER 2023-02-23 09:00 | Outpatient (REF) | payer OTHER, SELFPAY ==
--- NOTE | ~2023-02-23 | US_ITS ---
EXAMINATION: US ABDOMEN COMPLETE CLINICAL INFORMATION: Unspecified abdominal pain. COMPARISON: CT scan abdomen and pelvis 03/17/2022, abdominal ultrasound 07/17/2021 TECHNIQUE: Real-time imaging of the abdominal viscera. Technically limited study due to patient's body habitus and bowel gas. FINDINGS: PANCREAS: Normal head and neck, the remainder of the pancreas is not well seen due to bowel gas. ABDOMINAL AORTA: The proximal, mid, and distal segments are normal in caliber. Atherosclerotic plaque is seen within the distal abdominal aorta. INFERIOR VENA CAVA: Visualized portions are normal. LIVER: Normal. The liver is normal in size. The liver contour is normal. Parenchymal echogenicity is normal. No focal hepatic lesion. There is no intrahepatic biliary duct dilatation seen. GALLBLADDER: The gallbladder is not well seen due to bowel gas. The gallbladder is physiologically distended. No sonographic Iglesias's sign COMMON BILE DUCT: Normal in caliber measuring 0.6 cm in diameter at the alla hepatis and then closely dilates to 0.7 cm. The distal common duct is obscured by bowel gas. RIGHT KIDNEY: 1.3 x 0.7 x 1.2 cm simple exophytic cyst off the mid kidney is seen. No imaging follow-up is recommended. No hydronephrosis. No renal calculi or focal parenchymal lesions. The kidney measures 14.2 cm in maximum dimension. LEFT KIDNEY: Normal. No hydronephrosis. No renal calculi or focal parenchymal lesions. The kidney measures 12.2 cm in maximum dimension. SPLEEN: Normal. The spleen measures 11.2 cm in maximum dimension. FREE FLUID: None. US/US abdomen complete IMPRESSION: 1. The gallbladder is not well seen due to bowel gas. The distal common duct is obscured by bowel gas. Question mild dilatation of the mid common duct. 2. Atherosclerotic plaque is seen within the distal abdominal aorta.
== END 2023-02-23 09:01 | disposition home or self-care (01) ==
LOC: HO.US 09:00
PROVIDERS: PCP Hospitalist; Visit Provider Nurse Practitioner Family
DX: R10.9 Unspecified abdominal pain (principal)
CPT/HCPCS: 76700

== ENCOUNTER 2023-03-13 12:22 | Outpatient (AMB) | payer BC, SELFPAY ==
[2023-03-13 12:26] VITALS: BP 134/72; PULSE 91; RESP 13; TEMP 36.3; O2SAT 99; BMI 37.2
--- NOTE | 2023-03-13 12:26 | MHC.PC.OV ---
Vital Signs 03/13/23 12:26 03/13/23 12:51 Height 5 ft 9 in Weight 252 lb BMI 37.2 BP 134/72 Blood Pressure Location Rt brachial Position Sitting Respiration 13 Pulse 91 82 Pulse Source Pulse Oximeter Auscultation Temp 97.4 F Temp Source Temporal Artery Scan Pulse Oximetry (%) 99 Oxygen Delivery Method Room Air Intake Visit Reasons: HLD, HTN, elevated fasting glucose Ice Puller Required: No Accompanied by: Self / Same As Patient Allergies No Known Allergies Allergy (Verified 03/13/23 12:42) Medication List - Last Reconciled 03/13/23 by Loly Colvin CNP amlodipine 10 mg PO DAILY atorvastatin 20 mg PO BEDTIME 30 days docusate sodium 100 mg PO DAILY metoprolol tartrate 50 mg PO BID rivaroxaban (Xarelto) 20 mg PO QPM Tobacco use date assessed: 03/13/23 Fall risk assessment: No Falls in past year Last assessed Fall Risk: 03/13/23 Dental Screening Dental Screen Date: 03/13/23 Did you have a dental visit in the last 12 months?: No Did you have a dental problem in the last 6 months where you did not have access to dental care?: No Was dental information given to patient?: Patient has dentist HPI HPI Comments History of Present Illness Details 67-year-old male presents for hypertension, hyperlipidemia, and elevated fasting blood glucose follow-up He admits to taking his medications as prescribed without adverse reactions He offers no complaints and denies acute symptoms at this time [facility] Medical History Calculus of common bile duct with obstruction Cholelithiasis COVID-19 vaccine series completed History of COVID-19 GERD (gastroesophageal reflux disease) Anemia PAF (paroxysmal atrial fibrillation) Chronic GERD Afib Hyperlipidemia HTN (hypertension) Surgical History Hx of colonoscopy Hx of appendectomy Family History Mother HTN (hypertension) Father Stroke Social History Household Members: Spouse Housing: House Do you presently have visiting nurse or other home services: No Alcohol intake: never Patient Tobacco Use Status: Former Tobacco user e-Cigarette/Vaping Use: Never Used Second Hand Smoke Exposure: No service: No Current occupational status: employed Current occupation: [employer] Cognitive needs: No Hearing needs: No Vision needs: Yes Questionnaire Thrive Questionnaire Date Thrive assessed: 12/29/22 ILANA-7 AMB Questionnaire ILANA-7 Date ILANA - 7 assessed: 12/29/22 Source: Developed by Drs. Jose M Kelly, Earlene Crum, Eliazar Caban and colleagues, with an educational patrick from [employer]. Review of Systems Const Details: Const Denies chills, Denies fatigue, Denies fever(s), Denies headache(s) and Denies weakness ENT Denies dizziness and Denies headache(s) Card Denies chest pain, Denies lightheadedness, Denies dyspnea and Denies other (Palpitations) Resp Denies cough, Denies dyspnea, Denies wheezing and Denies other ( shortness of breath) GI Denies abdominal pain, Denies melena, Denies hematochezia, Denies change in bowel habits, Denies dyspepsia and Denies nausea Denies hematuria and Denies dysuria Musc Denies abnormal gait, Denies myalgias, Denies arthralgias, Denies numbness and Denies tingling Skin/Breast Denies rash, Denies unusual bruising and Denies wounds Neuro Denies abnormal gait, Denies dizziness, Denies headache(s), Denies memory loss, Denies numbness, Denies Sensory deficit (Neuro), Denies tingling and Denies weakness Psych Denies anxiety, Denies depression, Denies memory loss Endo Denies cold intolerance, Denies fatigue, Denies heat intolerance, Denies polydipsia and Denies polyuria Aller/Immun Denies wheezing Physical exam (Primary Care) Vital Signs: Last Vital Signs Temp 97.4 F 03/13/23 12:26 Pulse 82 03/13/23 12:51 Resp 13 03/13/23 12:26 BP 134/72 03/13/23 12:26 Pulse Ox 99 03/13/23 12:26 Oxygen Delivery Method Room Air 03/13/23 12:26 BMI result Body Mass Index 37.2 Tobacco/Smoking Status: Tobacco use Status Tobacco use date assessed 03/13/23 03/13/23 12:34 Patient Tobacco Use Status Former Tobacco user 03/13/23 12:34 e-Cigarette/Vaping Use Never Used 03/13/23 12:34 Thrive Assessment: Date of Thrive Assessment Date Thrive assessed 12/29/22 03/13/23 12:34 Const Other: General: no acute distress and well developed Nutritional Appearance: well nourished Orientation/consciousness: patient oriented x3 HENMT Head: Yes normocephalic and Yes atraumatic Eyes General: appearance normal, both eyes and all related structures Pupils: Equal, round and reactive pupils present EOM: EOMs intact bilaterally Resp Effort & Inspection: normal respiratory effort Auscultation: clear to auscultation bilaterally Cardio Rate: regular rate Rhythm: regular rhythm Heart sounds: S1 normal heart sound present, S2 normal heart sound present, no gallops, no murmurs and no rubs GI Palpation (GI): No Abdominal aortic bruit present, Soft to palpation, nontender, No hepatosplenomegaly present and No Rebound tenderness present Auscultation: normal bowel sounds General: Yes no CVA tenderness Back/Spine/Pelvis Back: no CVA tenderness Cervical Spine: cervical ROM normal and No Cervical spine tenderness Thoracic/Lumbar Spine: thoraco-lumbar ROM normal, No pain with thoraco-lumbar ROM, No thoracic spinal tenderness and No lumbar spinal tenderness Extrem General: Yes normal to inspection, No edema and No calf tenderness Skin General: warm and dry. Normal skin color. Normal skin turgor Lesions: no lesions Rashes: no rashes Trauma: no lacerations or abrasions Wounds: no wounds Nails: normal Neuro General: patient oriented x3, gait normal and no focal neuro deficit Cranial nerves: Yes Equal, round and reactive pupils present Cognition (Neuro): normal cognition Gait exam (Neuro): Normal gait present Sensory Exam: No Sensory deficit (Neuro) Psych Appearance: grossly normal Affect: normal affect Attitude: cooperative Thought process: Normal thought process present Results AMB Hemoglobin A1c AMB Hemoglobin A1c 5.8 % Last Edit by Linh Gary CMA on 03/13/23 12:53 Assessment and Plan Assessment & Plan (1) HTN (hypertension): Code(s): I10 - Essential (primary) hypertension Plan: Resting blood pressure is 134/72, slightly above goal of less than 130/80 Continue current treatment regimen Low-sodium diet encouraged Follow-up in 6 weeks or return sooner with symptoms or concerns Verbalized understanding and agreed with treatment plan (2) Hyperlipidemia: Code(s): E78.5 - Hyperlipidemia, unspecified Plan: Recent cholesterol and LDL level are elevated, 230 and 166 respectively. Triglycerides and HDL level are normal Will increase atorvastatin to 40 mg daily. Take as prescribed Advised to limit foods high in saturated fat and avoid foods high trans fat Routine exercise encouraged Will repeat lipid panel in 6 weeks. Advised to fast for 10-12 hours, may drink water only, and get blood work done before his next visit Follow-up in 6 weeks Verbalized understanding and agreed with treatment plan (3) Prediabetes: Code(s): R73.03 - Prediabetes Plan: His previous and recent fasting blood glucose are elevated,117 and 113 respectively A1c today is 5.8% Advised to limit high carbs foods such as rice, bread, pasta, potato Routine exercise encouraged Will monitor A1c annually or sooner if symptomatic Verbalized understanding and agreed with treatment plan Orders: Orders Lipid Panel 6 Weeks E78.5 - Hyperlipidemia, unspecified AMB Hemoglobin A1c Today R73.01 - Impaired fasting glucose Medications: New atorvastatin 40 mg PO BEDTIME 30 tabs 3RF 30 days Discontinued atorvastatin Discontinued Reason: Doctor's Order 20 mg PO BEDTIME 30 tabs 3RF 30 days Coding Level of Care Code Est Pt Level 4 (13074) Diagnoses HTN (hypertension) I10 Hyperlipidemia E78.5 Prediabetes R73.03
[2023-03-13 12:51] VITALS: PULSE 82
== END 2023-03-13 13:05 | disposition home or self-care (01) ==
PROVIDERS: PCP Hospitalist; Visit Provider Nurse Practitioner Family
DX: I10 Essential (primary) hypertension (principal); E78.5 Hyperlipidemia, unspecified; R73.03 Prediabetes; R73.01 Impaired fasting glucose
CPT/HCPCS: 83036; 99214

== ENCOUNTER 2023-04-22 07:21 | Outpatient (REF) | payer BC, SELFPAY ==
[2023-04-22 12:33] LABS: Cholesterol 235 mg/dL (<200); HDL Cholesterol 49 mg/dL (>40); LDL Cholesterol Calculated 153 mg/dL (<100); Triglycerides 165 mg/dL (<150)
== END 2023-04-22 07:22 | disposition home or self-care (01) ==
LOC: HO.WFDLDS 07:21
PROVIDERS: Visit Provider Nurse Practitioner Family
DX: E78.5 Hyperlipidemia, unspecified (principal)
CPT/HCPCS: 36415; 80061

== ENCOUNTER 2023-04-24 08:34 | Outpatient (AMB) | payer BC, SELFPAY ==
[2023-04-24 08:38] VITALS: BP 134/86; PULSE 83; RESP 14; TEMP 36.3; O2SAT 98; BMI 38.0
--- NOTE | 2023-04-24 08:38 | MHC.PC.OV ---
Vital Signs 04/24/23 08:38 Height 5 ft 9 in Weight 257 lb 8 oz BMI 38.0 BP 134/86 Blood Pressure Location Rt brachial Position Sitting Respiration 14 Pulse 83 Pulse Source Pulse Oximeter Temp 97.3 F Temp Source Temporal Artery Scan Pulse Oximetry (%) 98 Oxygen Delivery Method Room Air Intake Visit Reasons: 6 wks HTN, HLD Route Clerk Required: No Accompanied by: Self / Same As Patient Allergies No Known Allergies Allergy (Verified 04/24/23 08:50) Medication List - Last Reconciled 04/24/23 by Loly Colvin CNP amlodipine 10 mg PO DAILY atorvastatin 40 mg PO BEDTIME 30 days docusate sodium 100 mg PO DAILY metoprolol tartrate 50 mg PO BID rivaroxaban (Xarelto) 20 mg PO QPM Tobacco use date assessed: 03/13/23 Fall risk assessment: No Falls in past year Last assessed Fall Risk: 04/24/23 Dental Screening Dental Screen Date: 04/24/23 Did you have a dental visit in the last 12 months?: No Did you have a dental problem in the last 6 months where you did not have access to dental care?: No Was dental information given to patient?: Yes HPI HPI Comments History of Present Illness Details 67-year-old male presents for hypertension and hyperlipidemia follow up His atorvastatin was increased to 40 mg about 6 weeks ago He admits to taking his medications as prescribed without adverse reactions He offers no complaints and denies acute symptoms at this time COUNTS INCLUDE 234 BEDS AT THE [facility] Medical History Calculus of common bile duct with obstruction Cholelithiasis COVID-19 vaccine series completed History of COVID-19 GERD (gastroesophageal reflux disease) Anemia PAF (paroxysmal atrial fibrillation) Chronic GERD Afib Hyperlipidemia HTN (hypertension) Surgical History Hx of colonoscopy Hx of appendectomy Family History Mother HTN (hypertension) Father Stroke Social History Household Members: Spouse Housing: House Do you presently have visiting nurse or other home services: No Alcohol intake: never Patient Tobacco Use Status: Former Tobacco user e-Cigarette/Vaping Use: Never Used Second Hand Smoke Exposure: No service: No Current occupational status: employed Current occupation: [employer] Cognitive needs: No Hearing needs: No Vision needs: Yes Questionnaire Thrive Questionnaire Date Thrive assessed: 12/29/22 ILANA-7 AMB Questionnaire ILANA-7 Date ILANA - 7 assessed: 12/29/22 Source: Developed by Drs. Jose M Kelly, Earlene Crum, Eliazar Caban and colleagues, with an educational patrick from [employer]. Review of Systems Const Details: Const Denies chills, Denies fatigue, Denies fever(s), Denies headache(s) and Denies weakness ENT Denies dizziness and Denies headache(s) Card Denies chest pain, Denies lightheadedness, Denies dyspnea and Denies other (Palpitations) Resp Denies cough, Denies dyspnea, Denies wheezing and Denies other ( shortness of breath) GI Denies abdominal pain, Denies melena, Denies hematochezia, Denies change in bowel habits, Denies dyspepsia and Denies nausea Denies hematuria and Denies dysuria Musc Denies abnormal gait, Denies myalgias, Denies arthralgias, Denies numbness and Denies tingling Skin/Breast Denies rash, Denies unusual bruising and Denies wounds Neuro Denies abnormal gait, Denies dizziness, Denies headache(s), Denies memory loss, Denies numbness, Denies Sensory deficit (Neuro), Denies tingling and Denies weakness Psych Denies anxiety, Denies depression, Denies memory loss Endo Denies cold intolerance, Denies fatigue, Denies heat intolerance, Denies polydipsia and Denies polyuria Aller/Immun Denies wheezing Physical exam (Primary Care) Vital Signs: Last Vital Signs Temp 97.3 F 04/24/23 08:38 Pulse 83 04/24/23 08:38 Resp 14 04/24/23 08:38 BP 134/86 04/24/23 08:38 Pulse Ox 98 04/24/23 08:38 Oxygen Delivery Method Room Air 04/24/23 08:38 BMI result Body Mass Index 38.0 Tobacco/Smoking Status: Tobacco use Status Tobacco use date assessed 03/13/23 04/24/23 08:45 Patient Tobacco Use Status Former Tobacco user 02/16/24 08:45 e-Cigarette/Vaping Use Never Used 04/24/23 08:45 Thrive Assessment: Date of Thrive Assessment Date Thrive assessed 12/29/22 04/24/23 08:45 Const Other: General: no acute distress and well developed Nutritional Appearance: well nourished Orientation/consciousness: patient oriented x3 [facility] Head: Yes normocephalic and Yes atraumatic Eyes General: appearance normal, both eyes and all related structures Pupils: Equal, round and reactive pupils present EOM: EOMs intact bilaterally Resp Effort & Inspection: normal respiratory effort Auscultation: clear to auscultation bilaterally Cardio Rate: regular rate Rhythm: regular rhythm Heart sounds: S1 normal heart sound present, S2 normal heart sound present, no gallops, no murmurs and no rubs GI Palpation (GI): No Abdominal aortic bruit present, Soft to palpation, nontender, No hepatosplenomegaly present and No Rebound tenderness present Auscultation: normal bowel sounds General: Yes no CVA tenderness Back/Spine/Pelvis Back: no CVA tenderness Cervical Spine: cervical ROM normal and No Cervical spine tenderness Thoracic/Lumbar Spine: thoraco-lumbar ROM normal, No pain with thoraco-lumbar ROM, No thoracic spinal tenderness and No lumbar spinal tenderness Extrem General: Yes normal to inspection, No edema and No calf tenderness Skin General: warm and dry. Normal skin color. Normal skin turgor Neuro General: patient oriented x3, gait normal and no focal neuro deficit Cranial nerves: Yes Equal, round and reactive pupils present Cognition (Neuro): normal cognition Gait exam (Neuro): Normal gait present Sensory Exam: No Sensory deficit (Neuro) Psych Appearance: grossly normal Affect: normal affect Attitude: cooperative Thought process: Normal thought process present Assessment and Plan Assessment & Plan (1) HTN (hypertension): Code(s): I10 - Essential (primary) hypertension Plan: Blood pressure is controlled, 134/86 Continue current treatment regimen Low-sodium diet and routine exercise encouraged Follow-up in 1 month or return sooner with symptoms or concerns Verbalized understanding and agreed with treatment plan (2) Hyperlipidemia: Code(s): E78.5 - Hyperlipidemia, unspecified Plan: Recent lab results reviewed with the patient Triglycerides and total cholesterol levels elevated than previous, 165 and 235 respectively, LDL level is elevated, 155, HDL level was normal Medication compliance encouraged Continue current treatment regimen Advised to limit foods high in saturated fat and avoid foods high in trans fat Routine exercise encouraged Will recheck lipid profile in 1 month. Advised to fast for 10-12 hours, may drink water only, and get blood work done before his next visit Follow-up in 1 month Verbalized understanding and agreed with treatment plan (3) Obesity (BMI 30-39.9): Code(s): E66.9 - Obesity, unspecified Plan: He currently weighs 257 lb, BMI is 30.0 Notes his diet is generally healthy Denies routine exercise Declines referral to commercial subcontractor or weight management he notes he will continue to make lifestyle changes including healthy diet and routine exercise Healthy diet and routine exercise encouraged Advised to inform his PCP if he changes mind a referral to commercial subcontractor or weight management Follow-up with symptoms or concerns Verbalized understanding and agreed with treatment plan Orders: Orders Lipid Panel 1 Month E78.5 - Hyperlipidemia, unspecified Coding Level of Care Code Est Pt Level 3 (58168) Diagnoses HTN (hypertension) I10 Hyperlipidemia E78.5 Obesity (BMI 30-39.9) E66.9
== END 2023-04-24 09:03 | disposition home or self-care (01) ==
PROVIDERS: Visit Provider Nurse Practitioner Family
DX: I10 Essential (primary) hypertension (principal); E78.5 Hyperlipidemia, unspecified; E66.9 Obesity, unspecified; Z68.38 Body mass index [BMI] 38.0-38.9, adult
CPT/HCPCS: 99213

== ENCOUNTER 2023-07-01 08:09 | Outpatient (REF) | payer BC, SELFPAY ==
[2023-07-01 12:24] LABS: Cholesterol 205 mg/dL (<200); HDL Cholesterol 46 mg/dL (>40); LDL Cholesterol Calculated 132 mg/dL (<100); Triglycerides 138 mg/dL (<150)
== END 2023-07-01 08:10 | disposition home or self-care (01) ==
LOC: HO.WFDLDS 08:09
PROVIDERS: Visit Provider Nurse Practitioner Family
DX: E78.5 Hyperlipidemia, unspecified (principal)
CPT/HCPCS: 36415; 80061

== ENCOUNTER 2023-07-24 11:22 | Outpatient (AMB) | payer BC, SELFPAY ==
[2023-07-24 11:32] VITALS: BP 126/70; PULSE 70; RESP 14; TEMP 36.4; O2SAT 99; BMI 36.1
--- NOTE | 2023-07-24 11:32 | MHC.PC.OV ---
Vital Signs 07/24/23 11:32 Height 5 ft 9 in Weight 244 lb 4 oz BMI 36.1 BP 126/70 Blood Pressure Location Rt brachial Position Sitting Respiration 14 Pulse 70 Pulse Source Pulse Oximeter Temp 97.6 F Temp Source Temporal Artery Scan Pulse Oximetry (%) 99 Oxygen Delivery Method Room Air Intake Visit Reasons: 1 month HTN f/u Intake Note: Patient would like refill on xarelto Supervisor [employer] Required: No Accompanied by: Self / Same As Patient Allergies No Known Allergies Allergy (Verified 07/24/23 11:50) Medication List - Last Reconciled 07/24/23 by Loly Colvin CNP amlodipine 10 mg PO DAILY atorvastatin 40 mg PO BEDTIME 30 days docusate sodium 100 mg PO DAILY metoprolol tartrate 50 mg PO BID rivaroxaban (Xarelto) 20 mg PO QPM Tobacco use date assessed: 07/24/23 Fall risk assessment: No Falls in past year Last assessed Fall Risk: 07/24/23 Dental Screening Dental Screen Date: 04/24/23 HPI HPI Comments History of Present Illness Details 67-year-old male presents for hypertension and hyperlipidemia follow up He admits to taking his medications as prescribed without adverse reactions. He did not take his medications for about 2 weeks recently because he travel to [place] and forget his medications at home He offers no complaints and denies acute symptoms at this time COUNTS INCLUDE 234 BEDS AT [facility] Medical History Calculus of common bile duct with obstruction Cholelithiasis COVID-19 vaccine series completed History of COVID-19 GERD (gastroesophageal reflux disease) Anemia PAF (paroxysmal atrial fibrillation) Chronic GERD Afib Hyperlipidemia HTN (hypertension) Surgical History Hx of colonoscopy Hx of appendectomy Family History Mother HTN (hypertension) Father Stroke Social History Household Members: Spouse Housing: House Do you presently have visiting nurse or other home services: No Alcohol intake: never Patient Tobacco Use Status: Former Tobacco user e-Cigarette/Vaping Use: Never Used Second Hand Smoke Exposure: No service: No Current occupational status: employed Current occupation: [employer] Cognitive needs: No Hearing needs: No Vision needs: Yes Questionnaire Thrive Questionnaire Date Thrive assessed: 12/29/22 ILANA-7 AMB Questionnaire ILANA-7 Date ILANA - 7 assessed: 12/29/22 Source: Developed by Drs. Jose M Kelly, Earlene Crum, Eliazar Caban and colleagues, with an educational patrick from [employer]. Review of Systems Const Details: Const Denies chills, Denies fatigue, Denies fever(s), Denies headache(s) and Denies weakness ENT Denies dizziness and Denies headache(s) Card Denies chest pain, Denies lightheadedness, Denies dyspnea and Denies other (Palpitations) Resp Denies cough, Denies dyspnea, Denies wheezing and Denies other ( shortness of breath) GI Denies abdominal pain, Denies melena, Denies hematochezia, Denies change in bowel habits, Denies dyspepsia and Denies nausea Denies hematuria and Denies dysuria Musc Denies abnormal gait, Denies myalgias, Denies arthralgias, Denies numbness and Denies tingling Skin/Breast Denies rash, Denies unusual bruising and Denies wounds Neuro Denies abnormal gait, Denies dizziness, Denies headache(s), Denies memory loss, Denies numbness, Denies Sensory deficit (Neuro), Denies tingling and Denies weakness Psych Denies anxiety, Denies depression, Denies memory loss Endo Denies cold intolerance, Denies fatigue, Denies heat intolerance, Denies polydipsia and Denies polyuria Aller/Immun Denies wheezing Physical exam (Primary Care) Vital Signs: Last Vital Signs Temp 97.6 F 07/24/23 11:32 Pulse 70 07/24/23 11:32 Resp 14 07/24/23 11:32 BP 126/70 07/24/23 11:32 Pulse Ox 99 07/24/23 11:32 Oxygen Delivery Method Room Air 07/24/23 11:32 BMI result Body Mass Index 36.1 Tobacco/Smoking Status: Tobacco use Status Tobacco use date assessed 07/24/23 07/24/23 11:39 Patient Tobacco Use Status Former Tobacco user 07/24/23 11:39 e-Cigarette/Vaping Use Never Used 07/24/23 11:39 Thrive Assessment: Date of Thrive Assessment Date Thrive assessed 12/29/22 07/24/23 11:39 Const Other: General: no acute distress and well developed Nutritional Appearance: well nourished Orientation/consciousness: patient oriented x3 [facility] Head: Yes normocephalic and Yes atraumatic Eyes General: appearance normal, both eyes and all related structures Pupils: Equal, round and reactive pupils present EOM: EOMs intact bilaterally Resp Effort & Inspection: normal respiratory effort Auscultation: clear to auscultation bilaterally Cardio Rate: regular rate Rhythm: irregular rhythm Heart sounds: S1 normal heart sound present, S2 normal heart sound present, no gallops, no murmurs and no rubs GI Palpation (GI): No Abdominal aortic bruit present, Soft to palpation, nontender, No hepatosplenomegaly present and No Rebound tenderness present Auscultation: normal bowel sounds General: Yes no CVA tenderness Back/Spine/Pelvis Back: no CVA tenderness Cervical Spine: cervical ROM normal and No Cervical spine tenderness Thoracic/Lumbar Spine: thoraco-lumbar ROM normal, No pain with thoraco-lumbar ROM, No thoracic spinal tenderness and No lumbar spinal tenderness Extrem General: Yes normal to inspection, No edema and No calf tenderness Skin General: warm and dry. Normal skin color. Normal skin turgor Neuro General: patient oriented x3, gait normal and no focal neuro deficit Cranial nerves: Yes Equal, round and reactive pupils present Cognition (Neuro): normal cognition Gait exam (Neuro): Normal gait present Sensory Exam: No Sensory deficit (Neuro) Psych Appearance: grossly normal Affect: normal affect Attitude: cooperative Thought process: Normal thought process present Assessment and Plan Assessment & Plan (1) HTN (hypertension): Code(s): I10 - Essential (primary) hypertension Plan: Blood pressure is 126/70, within goal of less than 130/80 Continue current treatment regimen Low-sodium diet encouraged Follow-up in 3 months or return sooner with symptoms or concerns Verbalized understanding and agreed with treatment plan (2) Hyperlipidemia: Code(s): E78.5 - Hyperlipidemia, unspecified Plan: Significant improvement of recent triglyceride, total cholesterol, LDL, and HDL levels, 138, 205, 132, and 46 respectively Continue current treatment regimen Encouraged to limit foods high in saturated fat and avoid foods high in trans fat Routine exercise encouraged Advised to get fasting lipid panel blood work done before his next visit Follow-up in 3 months Verbalized understanding and agreed with treatment plan Orders: Orders Lipid Panel 3 Months E78.5 - Hyperlipidemia, unspecified Medications: Refilled rivaroxaban (Xarelto) must administer with evening meal 20 mg PO QPM 90 tabs 1RF D64.9 - Anemia, unspecified, I48.0 - Paroxysmal atrial fibrillation Coding Level of Care Code Est Pt Level 4 (32571) Complex EM visit Add On G2211 Diagnoses HTN (hypertension) I10 Hyperlipidemia E78.5
== END 2023-07-24 12:04 | disposition home or self-care (01) ==
PROVIDERS: Visit Provider Nurse Practitioner Family
DX: I10 Essential (primary) hypertension (principal); E78.5 Hyperlipidemia, unspecified
CPT/HCPCS: 99214; G2211

== ENCOUNTER 2024-08-16 07:43 | Outpatient (REF) | payer BC, SELFPAY ==
--- OUTSIDE RECORDS SUMMARY | 2024-08-16 07:47 | XMS_ITS | Encounter Summary ---
Author Organization [facility] [place], Address PO [facility] [address] [place] [address] Phone Care Team Providers Care Cloth Napping Supervisor Name Role Phone Loly Colvin CNP Primary Care Provider [phone] Encounter Details Date Type Department Care Team (Late Contact Info) Description 04/15/2023 Documentation Only [facility] [address] [place] [address] Deja Zuleta [place] [address] [place] [address] Social History Tobacco Use Types Packs/Day Years Used Date Smoking Tobacco: Former Alcohol Use Standard Drinks/Week Comments Never 0 (1 standard drink = 0.6 oz pur e alcohol) AUDIT-C Answer Date Recorded Q1: How often do you have a drink containing alc ohol? Never 04/11/2019 Average Number of Drinks Not on file 020 Frequency of Binge Drinking Not on file 05/2019 Sex and Gender Information Value Date Recorded Sex Assigned at Not on file Legal Sex Male 12:14 PM EST Gender Identity Not on file Sexual Orientation Not on file documented as of this encounter Plan of Treatment Upcoming Encounters Date Type Department Care Team (Late st Contact Info) Description 08/23/2025 4:15 PM EDT Office Visit [facility] [address] [place] [address] John Gutierrez MD [address] [facility] [place] [address] documented as of this encounter Visit Diagnoses Not on filedocumented in this encounter Care Teams Cloth Napping Supervisor Relationship Specialty Start Date End Date Loly Colvin CNP [address] [place] [address] PCP - General 04/13/23 documented as of this encounter
[2024-08-16 11:27] LABS: MANUAL DIFF FLAG NO
[2024-08-16 11:32] LABS: Basophils Percent Auto 0.8 % (0-2); Eosinophils Absolute Auto 0.1 X10*3/uL (0.0-0.4); Eosinophils Percent Auto 1.5 % (0-4); Hematocrit 46.4 % (42.0-52.0); Hemoglobin 15.1 g/dl (14.0-18.0); Imm Gran Abs Auto 0.01 X10*3/uL (0.00-0.03); Imm Gran Pct Auto 0.2 % (0.0-0.4); Lymphocytes Absolute Auto 1.1 X10*3/uL (1.2-4.9); Lymphocytes Percent Auto 22.5 % (20-40); Mean Corpuscular HGB Conc 32.5 g/dl (31.0-36.0); Mean Corpuscular Hemoglobin 27.2 pg (27.0-33.0); Mean Corpuscular Volume 83.5 fL (80.0-98.0); Mean Platelet Volume 10.8 fL (9.4-12.4); Monocytes Absolute Auto 0.4 X10*3/uL (0.1-1.2); Monocytes Percent Auto 7.7 % (2-11); Neutrophils Absolute Auto 3.2 x10*3/uL (2.0-8.3); Neutrophils Percent Auto 67.3 % (45-73); Platelet Count 138 X10*3/uL (160-400); Red Blood Count 5.56 X10*6/uL (4.60-5.80); Red Cell Distribution Width 14.6 % (11.0-16.0); White Blood Count 4.8 X10*3/uL (4.8-10.8)
[2024-08-16 11:46] LABS: Blood Urea Nitrogen 16 mg/dL (9-16); Calcium 8.8 mg/dL (8.4-10.2); Cholesterol 215 mg/dL (<200); Estimated Glomerular Filt Rate > 60; HDL Cholesterol 49 mg/dL (>40); LDL Cholesterol Calculated 144 mg/dL (<100); Triglycerides 113 mg/dL (<150)
[2024-08-16 12:05] LABS: Creatinine Urine 90.24 mg/dL; Microalbum/Creatinine Ratio Ur 251.5 ug/mg cr (<30)
== END 2024-08-16 07:44 | disposition home or self-care (01) ==
LOC: HO.WFDLDS 07:43
PROVIDERS: Referring Provider Internal Medicine Nephrology; Visit Provider Nurse Practitioner Family
DX: N28.0 Ischemia and infarction of kidney (principal); N18.2 Chronic kidney disease, stage 2 (mild); I10 Essential (primary) hypertension; R80.9 Proteinuria, unspecified
CPT/HCPCS: 36415; 80061; 82043; 82310; 82565; 82570; 84520; 85025

== ENCOUNTER 2024-09-12 15:00 | Outpatient (AMB) | payer BC, SELFPAY ==
--- NOTE | 2024-09-12 15:04 | MHC.PC.OV ---
Vital Signs 09/12/24 15:08 09/12/24 15:30 Height 5 ft 10 in Weight 250 lb 8 oz BMI 35.9 BP 165/112 H 150/90 H Blood Pressure Location Rt brachial Lt brachial Position Sitting Sitting Respiration 16 Pulse 121 H 118 H Pulse Source Pulse Oximeter Auscultation Temp 97.9 F Temp Source Oral Pulse Oximetry (%) 97 Oxygen Delivery Method Room Air Intake Visit Reasons: HTN, HLD Intake Note: patient here for follow up on HTN and HLD Pony Worker Required: No Allergies No Known Allergies Allergy (Verified 09/12/24 15:07) Tobacco use date assessed: 09/12/24 Fall risk assessment: No Falls in past year Last assessed Fall Risk: 09/12/24 Dental Screening Dental Screen Date: 09/12/24 Did you have a dental visit in the last 12 months?: Yes Did you have a dental problem in the last 6 months where you did not have access to dental care?: No Was dental information given to patient?: Patient has dentist HPI HPI Comments History of Present Illness Details 67-year-old male presents for hypertension and hyperlipidemia follow up. He admits to taking Amlodipine, Metoprolol and Xarelto daily. He notes that he forgot to take his morning medications today.. He has not taken Atorvastatin for several months due to GI discomfort. He is willing to trial Zetia for elevated cholesterol. 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 He admits to eating healthy and exercising routinely. He offers no complaints and denies acute symptoms at this time. His last office visit was in July 2023. The [place] verify from the pharmacy that the patient is currently on amlodipine 10 mg daily, metoprolol 50 mg twice daily, and Xarelto 20 mg daily. [facility] Medical History Calculus of common bile duct with obstruction Cholelithiasis COVID-19 vaccine series completed History of COVID-19 GERD (gastroesophageal reflux disease) Anemia PAF (paroxysmal atrial fibrillation) Chronic GERD Afib Hyperlipidemia HTN (hypertension) Surgical History Hx of colonoscopy Hx of appendectomy Family History Mother HTN (hypertension) Father Stroke Social History Household Members: Spouse Housing: House Do you presently have visiting nurse or other home services: No Alcohol intake: never Patient Tobacco Use Status: Former Tobacco user e-Cigarette/Vaping Use: Never Used Second Hand Smoke Exposure: No service: No Current occupational status: employed Current occupation: [employer] Current occupational exposures/hazards: No Cognitive needs: No Hearing needs: No Vision needs: Yes Questionnaire PHQ-9 Over the last 2 weeks, how often have you been bothered by any of the following problems? 1. Little interest or pleasure in doing things: not at all 2. Feeling down, depressed, or hopeless: not at all 3. Trouble falling or staying asleep, or sleeping too much: not at all 4. Feeling tired or having little energy: not at all 5. Poor appetite or overeating: not at all 6. Feeling bad about yourself - or that you are a failure or have let yourself or your family down: not at all 7. Trouble concentrating on things, such as reading the newspaper or watching television: not at all 8. Moving or speaking so slowly that other people could have noticed. Or the opposite - being so fidgety or restless that you have been moving around a lot more than usual: not at all 9. Thoughts that you would be better off or of hurting yourself in some way: not at all Total score: 0 Depression Screening Interpretation: Negative Depression Screening Done: Yes Source: Developed by Drs. Jose M Kelly, Earlene Crum, Eliazar Caban and colleagues, with an educational patrick from [employer]. Thrive Questionnaire Date Thrive assessed: 09/12/24 I am a: Patient What is your living situation today?: I have a steady place to live Within the past 12 months, did the food you bought not last and you didn't have the money to get more?: I choose not to answer this question Within the past 12 months, did you worry whether your food would run out before you got money to buy more?: I choose not to answer this question Do you have trouble paying for medicines?: I choose not to answer this question Do you have trouble getting transportation to medical appointments?: I choose not to answer this question Do you have trouble paying your heating and electricity bill?: I choose not to answer this question Do you have trouble taking care of your child, family member or friend?: I choose not to answer this question Do you have trouble with day-to-day activities such as bathing, preparing meals, shopping, managing finances, etc.?: I choose not to answer this question Are you currently unemployed and looking for a job?: I choose not to answer this question Are you interested in more education?: I choose not to answer this question Please select the resources that you would like help with: None Currently or been in a relationship where the following occur: I choose not to answer THRIVE Score: 0 AUDIT C Alcohol Use Questionnaire (AUDIT-C) 1. How often do you have a drink containing alcohol?: Monthly or less 2. How many drinks containing alcohol do you have on a typical day when you are drinking?: 1 or 2 3. How often do you have six or more drinks on one occasion?: Never Total Score: 1 ILANA-7 AMB Questionnaire ILANA-7 Date ILANA - 7 assessed: 12/29/22 Feeling nervous, anxious, or on edge: 0 = Not at all Not being able to stop or control worryin = Not at all Worrying too much about different things: 0 = Not at all Trouble relaxin = Not at all Being so restless that it is hard to sit still: 0 = Not at all Becoming easily annoyed or irritable: 0 = Not at all Feeling afraid as if something awful might happen: 0 = Not at all Total ILANA-7 score (0-4 normal; 5-9 mild; 10-14 moderate; 15-21 severe): 0 Source: Developed by Drs. Jose M Kelly, Earlene Crum, Eliazar Caban and colleagues, with an educational patrick from [employer]. Review of Systems Const Details: Const Denies chills, Denies fatigue, Denies fever(s), Denies headache(s) and Denies weakness ENT Denies dizziness and Denies headache(s) Card Denies chest pain, Denies lightheadedness, Denies dyspnea and Denies other (Palpitations) Resp Denies cough, Denies dyspnea, Denies wheezing and Denies other ( shortness of breath) GI Denies abdominal pain, Denies melena, Denies hematochezia, Denies change in bowel habits, Denies dyspepsia and Denies nausea Denies hematuria and Denies dysuria Musc Denies abnormal gait, Denies myalgias, Denies arthralgias, Denies numbness and Denies tingling Skin/Breast Denies rash, Denies unusual bruising and Denies wounds Neuro Denies abnormal gait, Denies dizziness, Denies headache(s), Denies memory loss, Denies numbness, Denies Sensory deficit (Neuro), Denies tingling and Denies weakness Psych Denies anxiety, Denies depression, Denies memory loss Endo Denies cold intolerance, Denies fatigue, Denies heat intolerance, Denies polydipsia and Denies polyuria Aller/Immun Denies wheezing Physical exam (Primary Care) Vital Signs: Last Vital Signs Temp 97.9 F 09/12/24 15:08 Pulse 118 H 09/12/24 15:30 Resp 16 09/12/24 15:08 BP 150/90 H 09/12/24 15:30 Pulse Ox 97 09/12/24 15:08 Oxygen Delivery Method Room Air 09/12/24 15:08 BMI result Body Mass Index 35.9 Tobacco/Smoking Status: Tobacco use Status Tobacco use date assessed 09/12/24 09/12/24 15:11 Patient Tobacco Use Status Former Tobacco user 09/12/24 15:07 e-Cigarette/Vaping Use Never Used 09/12/24 15:07 PHQ-9: PHQ-9 Score PHQ-9: Total score 0 09/12/24 15:25 Depression Screening Interpretation: Negative Thrive Assessment: Date of Thrive Assessment Date Thrive assessed 09/12/24 09/12/24 15:07 Currently or been in a relationship where the following occur: I choose not to answer Const Other: General: no acute distress and well developed Nutritional Appearance: well nourished Orientation/consciousness: patient oriented x3 HENMT Head: Yes normocephalic and Yes atraumatic Eyes General: appearance normal, both eyes and all related structures Pupils: Equal, round and reactive pupils present EOM: EOMs intact bilaterally Resp Effort & Inspection: normal respiratory effort Auscultation: clear to auscultation bilaterally Cardio Rate: regular rate Rhythm: regular rhythm Heart sounds: S1 normal heart sound present, S2 normal heart sound present, no gallops, no murmurs and no rubs GI Palpation (GI): No Abdominal aortic bruit present, Soft to palpation, nontender, No hepatosplenomegaly present and No Rebound tenderness present Auscultation: normal bowel sounds General: Yes no CVA tenderness Back/Spine/Pelvis Back: no CVA tenderness Cervical Spine: cervical ROM normal and No Cervical spine tenderness Thoracic/Lumbar Spine: thoraco-lumbar ROM normal, No pain with thoraco-lumbar ROM, No thoracic spinal tenderness and No lumbar spinal tenderness Extrem General: Yes normal to inspection, No edema and No calf tenderness Skin General: warm and dry. Normal skin color. Normal skin turgor Neuro General: patient oriented x3, gait normal and no focal neuro deficit Cranial nerves: Yes Equal, round and reactive pupils present Cognition (Neuro): normal cognition Gait exam (Neuro): Normal gait present Sensory Exam: No Sensory deficit (Neuro) Psych Appearance: grossly normal Affect: normal affect Attitude: cooperative Thought process: Normal thought process present Coding Level of Care Code Est Pt Level 4 (63966) Diagnoses HTN (hypertension) I10 Hyperlipidemia E78.5 Assessment & Plan Assessment & Plan (1) HTN (hypertension): Code(s): I10 - Essential (primary) hypertension Category: Medical Plan: Resting blood pressure is 150/90, above goal of less than 130/80, heart rate is 118. Metoprolol increased to 100 mg twice daily to target elevated blood pressure and heart rate; advised to take as prescribed. Low-sodium diet encouraged. Follow-up for nurse visit in 1 week and with PCP in 2 weeks. Return sooner with symptoms or concerns. Verbalized understanding and agreed with the treatment plan. (2) Hyperlipidemia: Code(s): E78.5 - Hyperlipidemia, unspecified Category: Medical Plan: Recent total cholesterol and LDL levels a elevated, 215 and 144 respectively. LDL goal is less than 100. He has not taken Atorvastatin for several months due to GI discomfort. He is willing to trial Zetia for elevated cholesterol. He admits to eating healthy and exercising routinely. Zetia 10 mg daily ordered; advised to take as prescribed. Instructed on the risks, benefits, and potential adverse reactions of the medication. Will recheck lipid panel levels in 2 months. Verbalized understanding and agreed with the plan. Orders: Orders Lipid Panel 2 Months E78.5 - Hyperlipidemia, unspecified Medications: New ezetimibe (Zetia) 10 mg PO DAILY 30 tabs 3RF 30 days metoprolol tartrate 100 mg PO BID 180 tabs 1RF 90 days Discontinued metoprolol tartrate Discontinued Reason: Doctor's Order 50 mg PO BID 180 tabs 0RF atorvastatin Discontinued Reason: Doctor's Order 40 mg PO BEDTIME 30 days 30 tabs 3RF
[2024-09-12 15:08] VITALS: BP 165/112; PULSE 121; RESP 16; TEMP 36.6; O2SAT 97; BMI 35.9
[2024-09-12 15:30] VITALS: BP 150/90; PULSE 118
--- OUTSIDE RECORDS SUMMARY | 2024-09-12 15:30 | XMS_ITS | Encounter Summary ---
Author Organization [facility] [place], Address PO [facility] [address] [place] [address] Phone Care Team Providers Care Peoplesoft Developer Name Role Phone Loly Colvin CNP Primary Care Provider [phone] Encounter Details Date Type Department Care Team (Late Contact Info) Description 04/15/2023 Documentation Only [facility] [address] [place] [address] Deja Zuleta [place] [address] [place] [address] Social History Tobacco Use Types [...] Visit [facility] [address] [place] [address] John Gutierrez MD [address] [facility] [place] [address] documented as of this encounter Visit Diagnoses Not on filedocumented in this encounter Care Teams Peoplesoft Developer Relationship Specialty Start Date End Date Loly Colvin CNP [address] [place] [address] PCP - General 04/13/23 documented as of this encounter
== END 2024-09-12 15:42 | disposition home or self-care (01) ==
LOC: HO.HMCFM 15:02
PROVIDERS: PCP Nurse Practitioner Family; Visit Provider Nurse Practitioner Family
DX: I10 Essential (primary) hypertension (principal); E78.5 Hyperlipidemia, unspecified

== ENCOUNTER 2024-12-03 08:12 | Outpatient (REF) | payer BC, SELFPAY ==
--- OUTSIDE RECORDS SUMMARY | 2024-12-03 08:15 | XMS_ITS | Encounter Summary ---
Author Organization [facility] [place], Address PO [facility] [address] [place] [address] Phone Care Team Providers Care Victims Advocate Clerk/Specialist Name Role Phone Loly Colvin CNP Primary Care Provider [phone] Encounter Details Date Type Department Care Team (Late Contact Info) Description 04/15/2023 Documentation Only [facility] [address] [place] [address] Deja Zuleta [place] [address] [place] [address] Social History Tobacco Use Types [...] Visit [facility] [address] [place] [place] [address] John Gutierrez MD [address] [facility] [place] [address] documented as of this encounter Visit Diagnoses Not on filedocumented in this encounter Care Teams Victims Advocate Clerk/Specialist Relationship Specialty Start Date End Date Loly Colvin CNP [address] [place] [address] PCP - General 04/13/23 documented as of this encounter
--- OUTSIDE RECORDS SUMMARY | 2024-12-03 08:15 | XMS_ITS | Encounter Summary ---
Author Organization [facility] [place], Address [address] [facility] [address] [place] [address] Phone Care Team Providers Care Outside Medical Sales Representative Name Role Phone Loly Colvin CNP Primary Care Provider [phone] Encounter Details Date Type Department Care Team (Late Contact Info) Description 08/16/2024 Documentation Only [facility] [address] [place] [address] Deja Zuleta [place] [address] [place] [address] Social History Tobacco Use Types [...] Visit [facility] [address] [place] [address] John Gutierrez MD [address] [facility] [place] [address] documented as of this encounter Visit Diagnoses Not on filedocumented in this encounter Care Teams Outside Medical Sales Representative Relationship Specialty Start Date End Date Loly Colvin CNP [address] [place] [address] PCP - General 04/13/23 documented as of this encounter
--- OUTSIDE RECORDS SUMMARY | 2024-12-03 08:15 | XMS_ITS | Encounter Summary ---
Author Organization [facility] [place], Address [address] [facility] [address] [place] [address] Phone Care Team Providers Care Transportation Officer Name Role Phone Loly Colvin CNP Primary Care Provider [phone] Encounter Details Date Type Department Care Team (Late Contact Info) Description 04/09/2022 Documentation Only [facility] [address] [place] [address] John Gutierrez MD [address] [place] [address] [place] [address] Social History Tobacco Use Types Packs/Day Years [...] Encounters Date Type Department Care Team (Late Contact Info) Description 08/23/2025 4:15 PM EDT Office Visit [facility] [address] [place] [address] John Gutierrez MD [address] [facility] [place] [address] documented as of this encounter Visit Diagnoses Not on filedocumented in this encounter Care Teams Transportation Officer Relationship Specialty Start Date End Date Loly Colvin CNP [address] [place] [address] PCP - General 04/13/23 documented as of this encounter
--- OUTSIDE RECORDS SUMMARY | 2024-12-03 08:15 | XMS_ITS | Clinical Summary ---
Author Organization [facility] [place], Address [address] [place] [address] [place] [address] Phone Care Team Providers Care Manager Community Development Name Role Phone Loly Colvin ELIZABETH Primary Care Provider [phone] Allergies No known active allergies Medications nitroglycerin (NITROSTAT) 0.[address] 0.3 mg under the tongue 01/10/2021 Active rivaroxaban (XARELTO) 20 MG tablet Take 1 tablet (20 mg total) by mouth 1 (one) time each day with dinner 90 tablet 3 08/10/2024 6 Active metoprolol tartrate (LOPRESSOR) 50 MG tablet Take 1 tablet (50 mg total) by mouth in the morning and 1 tablet (50 mg total) in the evening. 180 tablet 3 08/10/2024 6 Active amLODIPine (NORVASC) 10 MG tablet Take 1 tablet (10 mg total) by mouth 1 (one) time each day 90 tablet 3 08/10/2024 6 Active Active Problems Problem Noted Date Diagnosed Date Benign essential hypertension 04/17/2021 Chronic atrial fibrillation 04/17/2021 Gastroesophageal reflux disease 04/17/2021 Chronic kidney disease, stage 3 (moderate) 04/14 Hypertension 04/11/2019 Renal infarct 04/11/2019 Social History Tobacco Use Types Packs/Day Years [...] on file Sexual Orientation Not on file Last Filed Vital Signs Vital Sign Reading Time Taken Comments Blood Pressure 138/86 08/10/2024 4:18 PM EDT Pulse - - Temperature - - Respiratory Rate - - Oxygen Saturation - - Inhaled Oxygen Concentration - - Weight 109 kg (239 lb 12.8 oz) 04/20/2019 1:18 P M EST Height - - Body Mass Index - - Plan of Treatment Upcoming Encounters Date Type Department Care Team (Late st Contact Info) Description 08/23/2025 4:15 PM EDT Office Visit [facility] [address] [place] [address] John Gutierrez MD [address] [facility] [place] [address] Health Maintenance Due Date Last Done Comments Pneumococcal Vaccine: 50+ Ye ars (1 of 2 - PCV) 10/19/1974 Colorectal Cancer Screening: Annual FOBT 10/19/2004 Colorectal Cancer Screening: Colonoscopy 10/19/2004 Colorectal Cancer Screening: Sigmoidoscopy 10/19/2004 Influenza Vaccine (#1) 2024 Hepatitis B Vaccine Aged Out No longe r eligible based on patient's age to complete this topic Insurance [facility] Care Teams Manager Community Development Relationship Specialty Start Date End Date Loly Colvin CNP [address] [place] [address] PCP - General 04/13/23
[2024-12-03 11:41] LABS: Cholesterol 205 mg/dL (<200); HDL Cholesterol 45 mg/dL (>40); Triglycerides 76 mg/dL (<150)
== END 2024-12-03 08:13 | disposition home or self-care (01) ==
LOC: HO.HMGCLDS 08:12
PROVIDERS: PCP Nurse Practitioner Family; Visit Provider Nurse Practitioner Family
DX: E78.5 Hyperlipidemia, unspecified (principal)
CPT/HCPCS: 36415; 80061

== ENCOUNTER 2024-12-05 13:29 | Outpatient (AMB) | payer BC, SELFPAY ==
--- NOTE | 2024-12-05 13:30 | MHC.PC.OV ---
Vital Signs 12/05/24 13:35 12/05/24 13:59 Height 5 ft 10 in Weight 254 lb 8 oz BMI 36.5 BP 161/102 H 150/90 H Blood Pressure Location Rt brachial Rt brachial Position Sitting Sitting Respiration 16 Pulse 100 88 Pulse Source Pulse Oximeter Auscultation Temp 97.8 F Temp Source Oral Pulse Oximetry (%) 97 Oxygen Delivery Method Room Air Intake Visit Reasons: 2 wks PCP Intake Note: patient here for 2 wks follow up for HTN Soup Mixer Required: No Allergies No Known Allergies Allergy (Verified 12/05/24 13:54) Medication List - Last Reconciled 12/05/24 by Loly Colvin CNP amlodipine 10 mg PO DAILY ezetimibe (Zetia) 10 mg PO DAILY 30 days metoprolol tartrate 100 mg PO BID 90 days rivaroxaban (Xarelto) 20 mg PO QPM Tobacco use date assessed: 12/05/24 Fall risk assessment: No Falls in past year Last assessed Fall Risk: 12/05/24 Dental Screening Dental Screen Date: 12/05/24 Did you have a dental visit in the last 12 months?: Yes Did you have a dental problem in the last 6 months where you did not have access to dental care?: No Was dental information given to patient?: Patient has dentist HPI HPI Comments History of Present Illness Details 69-year-old male presents for hypertension and hyperlipidemia follow-up. He admits to taking his medications as prescribed without adverse reactions. He notes that his home systolic blood pressure is usually below 140; bood pressure before this appt. was 135/95. He offers no complaints and denies acute symptoms at this time. [facility] Medical History Calculus of common bile duct with obstruction Cholelithiasis COVID-19 vaccine series completed History of COVID-19 GERD (gastroesophageal reflux disease) Anemia PAF (paroxysmal atrial fibrillation) Chronic GERD Afib Hyperlipidemia HTN (hypertension) Surgical History Hx of colonoscopy Hx of appendectomy Family History Mother HTN (hypertension) Father Stroke Social History (Reviewed 07/24/23 @ 11:39 by NESTOR Hutton Household Members: Spouse Housing: House Do you presently have visiting nurse or other home services: No Alcohol intake: never Patient Tobacco Use Status: Former Tobacco user e-Cigarette/Vaping Use: Never Used Second Hand Smoke Exposure: No service: No Current occupational status: employed Current occupation: [employer] Current occupational exposures/hazards: No Cognitive needs: No Hearing needs: No Vision needs: Yes Questionnaire Thrive Questionnaire Date Thrive assessed: 09/12/24 I am a: Patient What is your living situation today?: I have a steady place to live Within the past 12 months, did the food you bought not last and you didn't have the money to get more?: I choose not to answer this question Within the past 12 months, did you worry whether your food would run out before you got money to buy more?: I choose not to answer this question Do you have trouble paying for medicines?: I choose not to answer this question Do you have trouble getting transportation to medical appointments?: I choose not to answer this question Do you have trouble paying your heating and electricity bill?: I choose not to answer this question Do you have trouble taking care of your child, family member or friend?: I choose not to answer this question Do you have trouble with day-to-day activities such as bathing, preparing meals, shopping, managing finances, etc.?: I choose not to answer this question Are you currently unemployed and looking for a job?: I choose not to answer this question Are you interested in more education?: I choose not to answer this question Please select the resources that you would like help with: None Currently or been in a relationship where the following occur: I choose not to answer THRIVE Score: 0 ILANA-7 AMB Questionnaire ILANA-7 Date ILANA - 7 assessed: 12/29/22 Source: Developed by Drs. Jose M Kelly, Earlene Crum, Eliazar Caban and colleagues, with an educational patrick from [employer]. Review of Systems Const Details: Const Denies chills, Denies fatigue, Denies fever(s), Denies headache(s) and Denies weakness ENT Denies dizziness and Denies headache(s) Card Denies chest pain, Denies lightheadedness, Denies dyspnea and Denies other (Palpitations) Resp Denies cough, Denies dyspnea, Denies wheezing and Denies other ( shortness of breath) GI Denies abdominal pain, Denies melena, Denies hematochezia, Denies change in bowel habits, Denies dyspepsia and Denies nausea Denies hematuria and Denies dysuria Musc Denies abnormal gait, Denies myalgias, Denies arthralgias, Denies numbness and Denies tingling Skin/Breast Denies rash, Denies unusual bruising and Denies wounds Neuro Denies abnormal gait, Denies dizziness, Denies headache(s), Denies memory loss, Denies numbness, Denies Sensory deficit (Neuro), Denies tingling and Denies weakness Psych Denies anxiety, Denies depression, Denies memory loss Endo Denies cold intolerance, Denies fatigue, Denies heat intolerance, Denies polydipsia and Denies polyuria Aller/Immun Denies wheezing Physical exam (Primary Care) Vital Signs: Last Vital Signs Temp 97.8 F 12/05/24 13:35 Pulse 100 12/05/24 13:35 Resp 16 12/05/24 13:35 BP 161/102 H 12/05/24 13:35 Pulse Ox 97 12/05/24 13:35 Oxygen Delivery Method Room Air 12/05/24 13:35 BMI result Body Mass Index 36.5 Tobacco/Smoking Status: Tobacco use Status Tobacco use date assessed 12/05/24 12/05/24 13:38 Patient Tobacco Use Status Former Tobacco user 12/05/24 13:31 e-Cigarette/Vaping Use Never Used 12/05/24 13:31 Thrive Assessment: Date of Thrive Assessment Date Thrive assessed 09/12/24 12/05/24 13:31 Currently or been in a relationship where the following occur: I choose not to answer Const Other: General: no acute distress and well developed Nutritional Appearance: well nourished Orientation/consciousness: patient oriented x3 HENMT Head: Yes normocephalic and Yes atraumatic Eyes General: appearance normal, both eyes and all related structures Pupils: Equal, round and reactive pupils present EOM: EOMs intact bilaterally Resp Effort & Inspection: normal respiratory effort Auscultation: clear to auscultation bilaterally Cardio Rate: regular rate Rhythm: regular rhythm Heart sounds: S1 normal heart sound present, S2 normal heart sound present, no gallops, no murmurs and no rubs GI Palpation (GI): No Abdominal aortic bruit present, Soft to palpation, nontender, No hepatosplenomegaly present and No Rebound tenderness present Auscultation: normal bowel sounds General: Yes no CVA tenderness Back/Spine/Pelvis Back: no CVA tenderness Cervical Spine: cervical ROM normal and No Cervical spine tenderness Thoracic/Lumbar Spine: thoraco-lumbar ROM normal, No pain with thoraco-lumbar ROM, No thoracic spinal tenderness and No lumbar spinal tenderness Extrem General: Yes normal to inspection, No edema and No calf tenderness Skin General: warm and dry. Normal skin color. Normal skin turgor Neuro General: patient oriented x3, gait normal and no focal neuro deficit Cranial nerves: Yes Equal, round and reactive pupils present Cognition (Neuro): normal cognition Gait exam (Neuro): Normal gait present Sensory Exam: No Sensory deficit (Neuro) Psych Appearance: grossly normal Affect: normal affect Attitude: cooperative Thought process: Normal thought process present Coding Level of Care Code Est Pt Level 3 (07975) Diagnoses HTN (hypertension) I10 Hyperlipidemia E78.5 Laboratory tests ordered as part of a complete physical exam (CPE) Z00.00 Assessment & Plan Assessment & Plan (1) HTN (hypertension): Code(s): I10 - Essential (primary) hypertension Category: Medical Plan: Resting blood pressure is 150/90, above goal of less than 130/80. He notes that his home systolic blood pressure is usually below 140; bood pressure before this appt. was 135/95. Declines medication adjustment at this time and notes that I don't want too much chemical in my body. Advised to continue current treatment regimen. Low-sodium diet encouraged. Will continue to monitor. Perform lab work and follow-up for an extended physical exam next month. Return sooner with symptoms or concerns. Verbalized understanding and agreed with the plan. (2) Hyperlipidemia: Code(s): E78.5 - Hyperlipidemia, unspecified Category: Medical Plan: Recent total cholesterol and LDL levels are elevated, 205 and 145 respectively, previous level was 215 and 144 respectively, triglycerides and HDL levels are normal. Continue to take Zetia as prescribed. Advised to limit foods high in saturated fat and avoid foods high in trans fat. Will recheck lipid panel level 2 months. Verbalized understanding and agreed with the plan. (3) Laboratory tests ordered as part of a complete physical exam (CPE): Code(s): Z00.00 - Encounter for general adult medical examination without abnormal findings Category: Medical Plan: Fasting labs ordered as part of a complete physical exam. Advised to fast for at least 10 hours before getting labs drawn. May drink water Verbalized understanding and agreed with treatment plan. Orders: Orders Hemoglobin A1c Today R73.03 - Prediabetes Comprehensive [place]. Panel Fast Today Z00.00 - Encounter for general adult medical examination without abnormal findings Microalbumin, Random (w Creat) Today Z00.00 - Encounter for general adult medical examination without abnormal findings PSA, Ultra Sensitive Today Z00.00 - Encounter for general adult medical examination without abnormal findings TSH reflex Free T4 Today Z00.00 - Encounter for general adult medical examination without abnormal findings UA CC w/rflx Micro + Cult Today Z00.00 - Encounter for general adult medical examination without abnormal findings Vitamin D 25-OH Total Today Z00.00 - Encounter for general adult medical examination without abnormal findings Medications: Refilled rivaroxaban (Xarelto) must administer with evening meal 20 mg PO QPM 90 tabs 1RF D64.9 - Anemia, unspecified, I48.0 - Paroxysmal atrial fibrillation
[2024-12-05 13:35] VITALS: BP 161/102; PULSE 100; RESP 16; TEMP 36.6; O2SAT 97; BMI 36.5
[2024-12-05 13:59] VITALS: BP 150/90; PULSE 88
--- OUTSIDE RECORDS SUMMARY | 2024-12-05 15:02 | XMS_ITS | Clinical Summary ---
Author Organization [facility], Address [address] [place] [address] [place] [address] Phone Care Team Providers Care Ball Maker Name Role Phone Loly Colvin ELIZABETH Primary Care Provider [phone] Allergies No known active allergies Medications nitroglycerin [...] Visit [facility] [address] [place] [id number] John Gutierrez MD [address] [facility] [place] [address] Health Maintenance Due Date Last Done Comments Pneumococcal Vaccine: 50+ Ye ars (1 of 2 - PCV) 10/19/1974 Colorectal Cancer Screening: Annual FOBT 10/19/2004 Colorectal Cancer Screening: Colonoscopy 10/19/2004 Colorectal Cancer Screening: Sigmoidoscopy 10/19/2004 Influenza Vaccine (#1) 2024 Hepatitis B Vaccine Aged Out No longe r eligible based on patient's age to complete this topic Insurance [facility] Care Teams Ball Maker Relationship Specialty Start Date End Date Loly Colvin CNP [address] [place] [address] PCP - General 04/13/23
--- OUTSIDE RECORDS SUMMARY | 2024-12-05 15:02 | XMS_ITS | Encounter Summary ---
Author Organization [facility] [place], Address [address] [facility] [address] [place] [address] Phone Care Team Providers Care Radiologic Technology Teacher Name Role Phone Loly Colvin CNP Primary Care Provider [phone] Encounter Details Date Type Department Care Team (Late Contact Info) Description 04/09/2022 Documentation Only [facility] [address] [place] [address] John Gutierrez MD [address] [place] [address] [place] [address] Social History Tobacco Use Types [...] Visit [facility] [address] [place] [address] John Gutierrez MD [address] [facility] [place] [address] documented as of this encounter Visit Diagnoses Not on filedocumented in this encounter Care Teams Radiologic Technology Teacher Relationship Specialty Start Date End Date Loly Colvin CNP [address] [facility] [place] [address] PCP - General 04/13/23 documented as of this encounter
--- OUTSIDE RECORDS SUMMARY | 2024-12-05 15:02 | XMS_ITS | Encounter Summary ---
Author Organization [facility] [place], Address [address] [facility] [address] [place] [address] Phone Care Team Providers Care Area Director Of Home Health Sales Name Role Phone Loly Colvin CNP Primary Care Provider [phone] Encounter Details Date Type Department Care Team (Late Contact Info) Description 04/15/2023 Documentation Only [facility] [address] [place] [address] Deja Zuleta [place] [address] [place] [address] Social History Tobacco Use Types [...] Visit [facility] [address] [place] [address] John Gutierrez MD [address] [facility] [place] [address] documented as of this encounter Visit Diagnoses Not on filedocumented in this encounter Care Teams Area Director Of Home Health Sales Relationship Specialty Start Date End Date Loly Colvin CNP [address] [place] [address] PCP - General 04/13/23 documented as of this encounter
--- OUTSIDE RECORDS SUMMARY | 2024-12-05 15:02 | XMS_ITS | Encounter Summary ---
Author Organization [facility] [place], Address [address] [facility] [address] [place] [address] Phone Care Team Providers Care Staff Research Scientist Name Role Phone Loly Colvin CNP Primary Care Provider [phone] Encounter Details Date Type Department Care Team (Late Contact Info) Description 08/16/2024 Documentation Only [facility] [address] [place] [address] Deja Zuleta [place] [address] [place] [address] Social History Tobacco Use Types [...] Visit [facility] [address] [place] [address] John Gutierrez MD [address] [facility] [place] [address] documented as of this encounter Visit Diagnoses Not on filedocumented in this encounter Care Teams Staff Research Scientist Relationship Specialty Start Date End Date Loly Colvin CNP [address] [place] [address] PCP - General 04/13/23 documented as of this encounter
== END 2024-12-05 14:13 | disposition home or self-care (01) ==
LOC: HO.HMCFM 13:30
PROVIDERS: PCP Nurse Practitioner Family; Visit Provider Nurse Practitioner Family
DX: I10 Essential (primary) hypertension (principal); E78.5 Hyperlipidemia, unspecified; Z00.00 Encounter for general adult medical examination without abnormal findings